=== PATIENT | female | born 2000 | race Two or more races ===

== ENCOUNTER → 2021-02-26 12:53 | Outpatient (BNVA) | payer MEDICAID, SELFPAY | PROVIDERS: PCP Pediatrics Adolescent Medicine; Visit Provider Nurse Practitioner Family | DX: G40.909 Epilepsy, unspecified, not intractable, without status epilepticus (principal); R25.1 Tremor, unspecified; R47.9 Unspecified speech disturbances; F39 Unspecified mood [affective] disorder | CPT/HCPCS: 99212 ==

== ENCOUNTER → 2021-06-27 09:08 | Outpatient (BNVA) | payer MEDICAID, SELFPAY | PROVIDERS: PCP Pediatrics Adolescent Medicine; Visit Provider Nurse Practitioner Family | DX: G40.909 Epilepsy, unspecified, not intractable, without status epilepticus (principal); R25.1 Tremor, unspecified; R47.9 Unspecified speech disturbances | CPT/HCPCS: 99212 ==

== ENCOUNTER → 2021-12-05 10:08 | Outpatient (BNVA) | payer MEDICAID, SELFPAY | PROVIDERS: PCP Pediatrics Adolescent Medicine; Visit Provider Nurse Practitioner Family | DX: G40.909 Epilepsy, unspecified, not intractable, without status epilepticus (principal); G44.85 Primary stabbing headache; R25.1 Tremor, unspecified; F39 Unspecified mood [affective] disorder | CPT/HCPCS: 99212 ==

== ENCOUNTER → 2022-03-12 10:41 | Outpatient (BNVA) | payer MEDICAID, SELFPAY | PROVIDERS: PCP Pediatrics Adolescent Medicine; Visit Provider Nurse Practitioner Family | DX: G40.909 Epilepsy, unspecified, not intractable, without status epilepticus (principal); R47.9 Unspecified speech disturbances; G44.85 Primary stabbing headache; Z79.899 Other long term (current) drug therapy | CPT/HCPCS: 99212 ==

== ENCOUNTER → 2022-06-09 10:57 | Outpatient (BNVA) | payer MEDICAID, SELFPAY | PROVIDERS: PCP Pediatrics Adolescent Medicine; Visit Provider Nurse Practitioner Family ==

== ENCOUNTER 2022-10-08 11:01 | Outpatient (AMB) | payer MEDICAID, SELFPAY ==
[2022-10-08 11:28] VITALS: BP 120/78; BMI 46.6
--- NOTE | 2022-10-08 11:28 | MHC.OFFVIS ---
Intake Vital Signs 10/08/22 11:28 Height 5 ft 2 in Weight 255 lb BMI 46.6 BP 120/78 Blood Pressure Location Rt brachial Position Sitting Intake Visit Reasons: follow up - Confirmed Intake Note: Patient presents for follow up Patient states evrything is good,no concerns today. Allergies phenytoin Allergy (Intermediate, Verified 10/08/22 11:30) unknown Medication List - Last Reconciled 10/08/22 by KOLBY Chavis clonazepam 2 mg PO DAILY PRN 30 days divalproex ER 1,500 mg (3 x 500 mg) PO DAILY 30 days gabapentin 100 - 300 mg (1 - 3 x 100 mg) PO BEDTIME 30 days indomethacin 25 mg PO TID 30 days levetiracetam 2,000 mg (2 x 1,000 mg) PO BID 30 days magnesium oxide 400 mg PO BEDTIME 30 days oxcarbazepine 600 mg (2 x 300 mg) PO BID 30 days pyridoxine (vitamin B6) 100 mg (2 x 50 mg) PO BID 30 days HPI HPI Comments History of Present Illness Details 22-yr-old female presents for f/u visit. Pt endorses a recent crisis admission. Pt states that she still does not want to leave her home. States everything looks weird to her. She is not sure what is real or not, such as this conversation. She states she may or may not having hearing things. Thus, she went to a bar, and started saying things I shouldn't have said , and crisis was called. She states that in crisis, they only offered her medications which she refused and thus she was discharged. She has retunred to living with her mom. She is not regularly seeing her therapist since they want her to do in-person visits and this is difficult for her, as she still does not want to leave the house. She could see a different therapist but is hesitant to re-establish care w/ a new person. She still does not want to take meds. States she is not crazy , depressed, or sad. States if she can just figure out what is wrong w/ her, then she can help herself. She denies any interval seizure activity. She states she is compliant w/ her keppra, trileptal, and depakote. She was tried on Gabapentin for headcahes, but stopped this. She states Indomethacin works better- but needs a refill PFSH Family History Father Heart disease Mother Cancer Social History Alcohol intake: current Alcohol intake frequency: a few times a month Alcohol type: beer Patient Tobacco Use Status: Never used Tobacco Review of Systems Const All systems reviewed & are unremarkable except as noted in HPI and below Physical Exam Vital Signs: Last Vital Signs BP 120/78 10/08/22 11:28 BMI result Body Mass Index 46.6 Const General: cooperative and no acute distress Orientation/consciousness: patient oriented x3 HEENT Head: Yes normocephalic Resp Effort & Inspection: normal respiratory effort and able to speak in complete sentences Neuro Other: Mild stutter Mild UE tremor Gait steady today General: patient oriented x3 and CN's II-XI intact bilaterally Cognition (Neuro): normal cognition Motor exam (neuro): 5/5 motor strength present throughout Psych Appearance: grossly normal Mental Status: mental status grossly normal Attitude: cooperative Assessment & Plan Assessment & Plan (1) 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 Onset at age 14. Code(s): G40.909 - Epilepsy, unspecified, not intractable, without status epilepticus (2) Mood disorder: Comment: anxiety and depressive features. 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 Improved since onset. Code(s): R47.9 - Unspecified speech disturbances (4) Tremor: Code(s): R25.1 - Tremor, unspecified Plan For mood disorder- Pt agrees to see psychiatry to help w/ diagnosis, as this can help us better to help her manage her s/s. Pt previously seen at [facility]. Pt advised to call [facility], 911 if she develops any thoughts of SI/self-harm. For seizure: Check CBC, CMP, Depakote, TSH, b12/folate, ESR. Will check EEG. Continue Depakote ER 500mg qd. Continue Keppra [id number] bid. Continue Trileptal 600mg bid. Continue Vitamin B6 100mg bid. Continue Clonazepam ODT 2mg prn breakthrough seizure. 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 ? For sleep: Hold HST for now. ? For stabbing headaches: Continue Magnesium 400mg qhs. Continue Indomethacin 25mg po TID prn. Future considerations Propranolol 60mg Er or 10mg IR bid prn, consider PT. ? f/u in 2-3 months or sooner prn. Orders: Orders Vitamin B12 and Folate Today F09 - Unspecified mental disorder due to known physiological condition, F39 - Unspecified mood [affective] disorder, G40.909 - Epilepsy, unspecified, not intractable, without status epilepticus, R25.1 - Tremor, unspecified, R47.9 - Unspecified speech disturbances Comprehensive Met. Panel Today F09 - Unspecified mental disorder due to known physiological condition, F39 - Unspecified mood [affective] disorder, G40.909 - Epilepsy, unspecified, not intractable, without status epilepticus, R25.1 - Tremor, unspecified, R47.9 - Unspecified speech disturbances TSH reflex Free T4 Today F09 - Unspecified mental disorder due to known physiological condition, F39 - Unspecified mood [affective] disorder, G40.909 - Epilepsy, unspecified, not intractable, without status epilepticus, R25.1 - Tremor, unspecified, R47.9 - Unspecified speech disturbances Complete Blood Count Auto Diff Today F09 - Unspecified mental disorder due to known physiological condition, F39 - Unspecified mood [affective] disorder, G40.909 - Epilepsy, unspecified, not intractable, without status epilepticus, R25.1 - Tremor, unspecified, R47.9 - Unspecified speech disturbances Erythrocyte Sedimentation Rate Today F09 - Unspecified mental disorder due to known physiological condition, F39 - Unspecified mood [affective] disorder, G40.909 - Epilepsy, unspecified, not intractable, without status epilepticus, R25.1 - Tremor, unspecified, R47.9 - Unspecified speech disturbances Valproate Today F09 - Unspecified mental disorder due to known physiological condition, F39 - Unspecified mood [affective] disorder, G40.909 - Epilepsy, unspecified, not intractable, without status epilepticus, R25.1 - Tremor, unspecified, R47.9 - Unspecified speech disturbances EEG electroencephalogram Today F39 - Unspecified mood [affective] disorder, G40.909 - Epilepsy, unspecified, not intractable, without status epilepticus Referrals Psychiatry Referral F39 - Unspecified mood [affective] disorder, G40.909 - Epilepsy, unspecified, not intractable, without status epilepticus Medications: Refilled indomethacin administer with food or milk 25 mg PO TID 30 days 90 caps 1RF Discontinued gabapentin Discontinued Reason: Doctor's Order 100 - 300 mg (1 - 3 x 100 mg) PO BEDTIME 30 days 90 caps 1RF Coding Level of Care Code Est Pt Level 4 (00082) Diagnoses Epilepsy G40.909 Mood disorder F39 Speech disorder R47.9 Tremor R25.1
== END 2022-10-08 12:31 | disposition home or self-care (01) ==
PROVIDERS: Visit Provider Nurse Practitioner Family
DX: G40.909 Epilepsy, unspecified, not intractable, without status epilepticus (principal); F39 Unspecified mood [affective] disorder; R47.9 Unspecified speech disturbances; R25.1 Tremor, unspecified
CPT/HCPCS: 99214

== ENCOUNTER → 2022-10-08 11:01 | Outpatient (BNVA) | payer MEDICAID, SELFPAY | PROVIDERS: Visit Provider Nurse Practitioner Family | DX: G40.909 Epilepsy, unspecified, not intractable, without status epilepticus (principal); F39 Unspecified mood [affective] disorder; R47.9 Unspecified speech disturbances; R25.1 Tremor, unspecified; Z79.899 Other long term (current) drug therapy | CPT/HCPCS: 99212 ==

== ENCOUNTER 2022-10-30 07:42 | Outpatient (REF) | payer MEDICAID, SELFPAY ==
--- NOTE | 2022-10-30 07:46 | EEG_ITS ---
INDICATION: This is a 16-channel EEG with an EKG lead. The patient is reported awake during the tracing. Background EEG rhythm is low amplitude fast with no obvious asymmetry or paroxysmal tendency. Photic stimulation does not produce any significant abnormality. Hyperventilation is unremarkable. No sharp wave spikes or paroxysmal tendency noted. Cardiac lead does not reveal any significant abnormality. Some lead and muscle artifacts are noted. IMPRESSION: Unremarkable EEG. MD ELIAS Guerrero/JOE / [id number]
== END 2022-10-30 07:43 | disposition home or self-care (01) ==
LOC: HO.NEURO 07:42
PROVIDERS: PCP Pediatrics Adolescent Medicine; Visit Provider Nurse Practitioner Family
DX: G40.909 Epilepsy, unspecified, not intractable, without status epilepticus (principal); F39 Unspecified mood [affective] disorder
CPT/HCPCS: 95816

== ENCOUNTER 2023-01-08 11:06 | Outpatient (AMB) | payer MEDICAID, SELFPAY ==
--- NOTE | 2023-01-08 11:27 | A.OFFVIS_ITS ---
Intake Vital Signs 01/08/23 11:29 Weight 258 lb 2 oz BP 140/68 H Blood Pressure Location Lt brachial Position Sitting Pulse 119 H Pulse Source Pulse Oximeter Pulse Oximetry (%) 98 Oxygen Delivery Method Room Air Intake Visit Reasons: follow up / LVM Allergies phenytoin Allergy (Intermediate, Verified 01/08/23 11:32) unknown Medication List - Last Reconciled 01/08/23 by Isabel Khoury, KOLBY clonazepam 2 mg PO DAILY PRN 30 days divalproex ER 1,500 mg (3 x 500 mg) PO DAILY 30 days indomethacin 25 mg PO TID PRN 30 days levetiracetam 2,000 mg (2 x 1,000 mg) PO BID 30 days magnesium oxide 400 mg PO BEDTIME 30 days oxcarbazepine 600 mg (2 x 300 mg) PO BID 30 days pyridoxine (vitamin B6) 100 mg (2 x 50 mg) PO BID 30 days HPI HPI Comments History of Present Illness Details 22-yr-old female presents for f/u visit. Pt denies any significant interval medical changes. She has been having a right parietal burning pain- the size of a tennis ball. The pain was intense- made it difficult for her to fall asleep. The attack lasted 4 days. She tried OTC headache medicine- did not help. She also notes increased weight gain, snoring, unrefreshing sleep, and excessive daytime sleepiness. She states she cannot see the psychiatrist as she does not currently have a PCP, as she has aged out of pediatrics. She is having difficulty finding a PCP. She does not drive. She lives in [place]. [facility] Family History Father Heart disease Mother Cancer Social History Alcohol intake: current Alcohol intake frequency: a few times a month Alcohol type: beer Patient Tobacco Use Status: Never used Tobacco Review of Systems Const All systems reviewed & are unremarkable except as noted in HPI and below Physical Exam Vital Signs: Last Vital Signs Pulse 119 H 01/08/23 11:29 BP 140/68 H 01/08/23 11:29 Pulse Ox 98 01/08/23 11:29 Oxygen Delivery Method Room Air 01/08/23 11:29 Const General: cooperative and no acute distress Orientation/consciousness: patient oriented x3 HEENT Head: Yes normocephalic Resp Effort & Inspection: normal respiratory effort and able to speak in complete sentences Neuro Other: Mild stutter General: patient oriented x3, gait normal and CN's II-XI intact bilaterally Cognition (Neuro): normal cognition Motor exam (neuro): 5/5 motor strength present throughout Psych Appearance: grossly normal Mental Status: mental status grossly normal Speech and movement: Normal speech and movement present Affect: normal affect Attitude: cooperative Thought process: Normal thought process present Thought content: Normal thought content present Insight: Good insight present (Psych) Judgement: Good judgement present (Psych) Assessment & Plan Assessment & Plan (1) 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 Onset at age 14. Code(s): G40.909 - Epilepsy, unspecified, not intractable, without status epilepticus (2) Obesity, morbid, BMI 40.0-49.9: Code(s): E66.01 - Morbid (severe) obesity due to excess calories (3) Tremor: Code(s): R25.1 - Tremor, unspecified (4) Sleep difficulties: Code(s): G47.9 - Sleep disorder, unspecified (5) Excessive daytime sleepiness: Comment: ESS- 15 Code(s): G47.19 - Other hypersomnia (6) Stabbing headache: Comment: indomethacin-responsive Code(s): G44.85 - Primary stabbing headache (7) Snoring: Code(s): R06.83 - Snoring (8) Mood disorder: Comment: anxiety and depressive features. Code(s): F39 - Unspecified mood [affective] disorder Plan For mood disorder- Will attempt to help pt establish care w/ PCP as pt cannot seee psychiatry w/o a PCP. However, will reach out to psychiatry to see if we they will see her- as we would like clarity on her mental health diagnosis.. Pt previously seen at [facility]. Pt advised to call [facility], 1 if she develops any thoughts of SI/self-harm. ? For seizure: Re-check labs EEG- normal Continue Depakote ER 500mg qd. Continue Keppra [id number] bid. Continue Trileptal 600mg bid. Continue Vitamin B6 100mg bid. Continue Clonazepam ODT 2mg prn breakthrough seizure. 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 ? For sleep: Pt advised to undergo in-lab PSG to assess for sleep apnea in setting of pt w/ BMI > 40.. ? For stabbing headaches: Continue Magnesium 400mg qhs. Continue Indomethacin 25mg po TID prn. Future considerations Propranolol 60mg Er or 10mg IR bid prn, consider PT. ? f/u in 4 months or sooner prn. Orders: Orders Complete Blood Count Auto Diff 01/08/23 E66. - Morbid (severe) obesity due to excess calories, G40.909 - Epilepsy, unspecified, not intractable, without status epilepticus, R25.1 - Tremor, unspecified Hemoglobin A1c 01/08/23 E66.01 - Morbid (severe) obesity due to excess calories, F09 - Unspecified mental disorder due to known physiological condition, R25.1 - Tremor, unspecified Lipid Panel with Reflex 01/08/23 E66.01 - Morbid (severe) obesity due to excess calories, G40.909 - Epilepsy, unspecified, not intractable, without status epilepticus, R25.1 - Tremor, unspecified Comprehensive Met. Panel 01/08/23 E66.01 - Morbid (severe) obesity due to excess calories, G40.909 - Epilepsy, unspecified, not intractable, without status epilepticus, R25.1 - Tremor, unspecified Valproate 01/08/23 E66.01 - Morbid (severe) obesity due to excess calories, G40.909 - Epilepsy, unspecified, not intractable, without status epilepticus, R25.1 - Tremor, unspecified RT PSG in-lab sleep study 01/08/23 E66.01 - Morbid (severe) obesity due to excess calories, G40.909 - Epilepsy, unspecified, not intractable, without status epilepticus, G47.19 - Other hypersomnia, G47.9 - Sleep disorder, unspecified Medications: Changed From indomethacin administer with food or milk 25 mg PO TID 30 days 90 caps 1RF To indomethacin administer with food or milk 25 mg PO TID 30 days PRN 90 caps 1RF headache Coding Level of Care Code Est Pt Level 4 (73713) Diagnoses Epilepsy G40.909 Obesity, morbid, BMI 40.0-49.9 E66.01 Tremor R25.1 Sleep difficulties G47.9 Excessive daytime sleepiness G47.19 Stabbing headache G44.85 Snoring R06.83 Mood disorder F39
[2023-01-08 11:29] VITALS: BP 140/68; PULSE 119; O2SAT 98
== END 2023-01-08 12:41 | disposition home or self-care (01) ==
PROVIDERS: PCP Pediatrics Adolescent Medicine; Visit Provider Nurse Practitioner Family
DX: G40.909 Epilepsy, unspecified, not intractable, without status epilepticus (principal); E66.01 Morbid (severe) obesity due to excess calories; R25.1 Tremor, unspecified; G47.9 Sleep disorder, unspecified; G47.19 Other hypersomnia; G44.85 Primary stabbing headache; R06.83 Snoring; F39 Unspecified mood [affective] disorder
CPT/HCPCS: 99214

== ENCOUNTER → 2023-01-08 11:06 | Outpatient (BNVA) | payer MEDICAID, SELFPAY | PROVIDERS: PCP Pediatrics Adolescent Medicine; Visit Provider Nurse Practitioner Family | DX: G40.909 Epilepsy, unspecified, not intractable, without status epilepticus (principal); R25.1 Tremor, unspecified; G47.9 Sleep disorder, unspecified; G47.19 Other hypersomnia; G44.85 Primary stabbing headache; R06.83 Snoring; E66.01 Morbid (severe) obesity due to excess calories; F39 Unspecified mood [affective] disorder | CPT/HCPCS: 99212 ==

== ENCOUNTER 2023-06-11 10:47 | Outpatient (AMB) | payer OTHER, SELFPAY ==
--- NOTE | 2023-06-11 11:33 | A.OFFVIS_ITS ---
Vital Signs 06/11/23 11:38 Height 5 ft 2 in Weight 265 lb BMI 48.5 BP 130/80 Blood Pressure Location Lt brachial Position Sitting Pulse 88 Pulse Source Pulse Oximeter Pulse Oximetry (%) 100 Oxygen Delivery Method Room Air Intake Visit Reasons: 5M follow up-CONF Intake Note: Patient presents for 5 month's f/u. Both hands are shaking more. Allergies phenytoin Allergy (Intermediate, Verified 06/11/23 11:38) unknown Medication List - Last Reconciled 06/11/23 by KOLBY Chavis clonazepam 2 mg PO DAILY PRN 30 days divalproex ER 1,500 mg (3 x 500 mg) PO DAILY 30 days indomethacin 25 mg PO TID PRN 30 days levetiracetam 2,000 mg (2 x 1,000 mg) PO BID 30 days magnesium oxide 400 mg PO BEDTIME 30 days oxcarbazepine 600 mg (2 x 300 mg) PO BID 30 days pyridoxine (vitamin B6) 100 mg (2 x 50 mg) PO BID 30 days rosuvastatin 5 mg PO DAILY 30 days HPI Comments Details: 23-yr-old female presents for f/u visit. Pt denies any significant interval medical changes. Interval labs were notable for hyperlipidemia. Pt was advised to start rosuvastin, which she has started. States tolerating well. Pt states her mood is stable. She feels more forgetful, can be easily distracted. She is trying to go outside more. She can still sometimes feel like things are not real. She is not working. She would like to be able to drive- her permit just . Denies seizure activity. She tries to be compliant w/ her AEDs, but sometimes runs out as she can have difficulty getting her medications. Notes [facility] won't deliver her meds, states they told her her meds need to be signed for. She sometimes has the stabbing headache, Indomethacin helps, but again sometimes runs out. 01/08/23 12:52 WBC 9.7 RBC 4.40 Hgb 13.8 Hct 43.3 MCV 98.4 Platelet Count 433 01/08/23 12:52 Sodium 141 Potassium 4.4 Chloride 103 Bicarbonate Level 27 Anion Gap 11 Glucose Level 77 Hemoglobin A1C (Monitoring) 4.9 BUN 10 Creatinine-Blood 0.6 Estimated GFR Creatinine 127 Calcium 10.1 Protein, Total 7.9 Albumin 4.5 AG Ratio 1.3 Alkaline Phosphatase 53 AST (SGOT) 47 ALT (SGPT) 61 Bilirubin, Total 0.3 Cholesterol 265 HDL Cholesterol 40 LDL Cholesterol 189 Non HDL Cholesterol 225 Triglyceride 181 Cholesterol/HDL Ratio (Calc) 6.6 Valproic Level 69.4 PFSH Family History Father Heart disease Mother Cancer Social History Alcohol intake: current Alcohol intake frequency: a few times a month Alcohol type: beer Patient Tobacco Use Status: Never used Tobacco Physical Exam Vital Signs: Last Vital Signs Pulse 88 06/11/23 11:38 BP 130/80 06/11/23 11:38 Pulse Ox 100 06/11/23 11:38 Oxygen Delivery Method Room Air 06/11/23 11:38 BMI result Body Mass Index 48.5 Const General: cooperative and no acute distress Orientation/consciousness: patient oriented x3 Resp Effort & Inspection: normal respiratory effort and able to speak in complete sentences Neuro Other: Mild stutter Mild BUE postural tremor Staedy gait today General: patient oriented x3 Cranial nerves: Yes CN's II-XII intact bilaterally Cognition (Neuro): normal cognition Psych Appearance: grossly normal Mental Status: mental status grossly normal Affect: normal affect Attitude: cooperative Assessment & Plan Assessment & Plan (1) 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 Onset at age 14. 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 Improved since onset. Code(s): R47.9 - Unspecified speech disturbances Category: Medical (4) Mood disorder: Comment: anxiety and depressive features. Code(s): F39 - Unspecified mood [affective] disorder Category: Medical (5) Stabbing headache: Comment: indomethacin-responsive Code(s): G44.85 - Primary stabbing headache Category: Medical (6) HLD (hyperlipidemia): Code(s): E78.5 - Hyperlipidemia, unspecified Category: Medical Plan For mood disorder- Pt has an appt to establish care w/ PCP, once established we can refer pt as pt cannot see psychiatry w/o a PCP. Will refer for psychiatric consult, as we would like clarity on her mental health diagnosis and medication guidance. Pt previously seen at [facility]. Pt advised to call crisis, 911 if she develops any thoughts of SI/self-harm. Will send all meds to a new pharmacy that can deliver medications to improve compliance. ? For seizure: Continue Depakote ER 500mg qd. Continue Keppra [id number] bid. Continue Trileptal 600mg bid. Continue Vitamin B6 100mg bid. Continue Clonazepam ODT 2mg prn breakthrough seizure. 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 Check CBC, CMP, depakote level. For tremor: Trial Propranolol 10mg bid. ? For sleep: Pt unable to have sleep study until she has established care w/a PCP- hold in- lab PSG to assess for sleep apnea in setting of pt w/ BMI > 40.. ? For stabbing headaches: Continue Magnesium 400mg qhs. Continue Indomethacin 25mg po TID prn. Future considerations Propranolol 60mg Er or 10mg IR bid prn, consider PT. For HLD: Continue rosuvastatin 5mg qhs. Pt had been referred to medical wt management- this service is on hold- they gave pt info on information for [facility]. Check lipid panel. ? f/u in 6 months or sooner prn. Medications: New propranolol 10 mg PO BID 60 tabs 3RF 30 days Changed From levetiracetam 2,000 mg (2 x 1,000 mg) PO BID 30 days 120 tabs 6RF To levetiracetam 2,000 mg (2 x 1,000 mg) PO BID 120 tabs 6RF 30 days From divalproex ER 1,500 mg (3 x 500 mg) PO DAILY 30 days 90 tabs 6RF To divalproex ER 1,500 mg (3 x 500 mg) PO DAILY 90 tabs 6RF 30 days Refilled magnesium oxide may hold for loose stools 400 mg PO BEDTIME 30 tabs 6RF 30 days rosuvastatin at bedtime 5 mg PO DAILY 30 tabs 6RF 30 days pyridoxine (vitamin B6) 100 mg (2 x 50 mg) PO BID 120 tabs 6RF 30 days oxcarbazepine 600 mg (2 x 300 mg) PO BID 120 tabs 6RF 30 days indomethacin administer with food or milk 25 mg PO TID PRN 90 caps 1RF headache 30 days Coding Level of Care Code Est Pt Level 4 (43583) Diagnoses Epilepsy G40.909 Tremor R25.1 Speech disorder R47.9 Mood disorder F39 Stabbing headache G44.85 HLD (hyperlipidemia) E78.5
[2023-06-11 11:38] VITALS: BP 130/80; PULSE 88; O2SAT 100; BMI 48.5
== END 2023-06-11 12:24 | disposition home or self-care (01) ==
PROVIDERS: PCP Nurse Practitioner Family; Visit Provider Nurse Practitioner Family
DX: G40.909 Epilepsy, unspecified, not intractable, without status epilepticus (principal); R25.1 Tremor, unspecified; R47.9 Unspecified speech disturbances; F39 Unspecified mood [affective] disorder; G44.85 Primary stabbing headache; E78.5 Hyperlipidemia, unspecified
CPT/HCPCS: 99214

== ENCOUNTER → 2023-06-11 10:47 | Outpatient (BNVA) | payer OTHER, SELFPAY | PROVIDERS: PCP Nurse Practitioner Family; Visit Provider Nurse Practitioner Family | DX: G40.909 Epilepsy, unspecified, not intractable, without status epilepticus (principal); R25.1 Tremor, unspecified; R47.9 Unspecified speech disturbances; F39 Unspecified mood [affective] disorder; G44.85 Primary stabbing headache; E78.5 Hyperlipidemia, unspecified; Z79.899 Other long term (current) drug therapy | CPT/HCPCS: 99212 ==

== ENCOUNTER 2023-07-23 15:30 | Outpatient (AMB) | payer OTHER, SELFPAY ==
--- NOTE | 2023-07-23 15:53 | A.OFFPSYCH_ITS ---
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 Allergies phenytoin Allergy (Intermediate, Verified 06/11/23 11:38) unknown Medication List - Last Reconciled 07/23/23 by Jennyfer Calhoun APRN clonazepam 2 mg PO DAILY PRN 30 days divalproex ER 1,500 mg (3 x 500 mg) PO DAILY 30 days fluoxetine (Prozac) 10 mg PO DAILY indomethacin 25 mg PO TID PRN 30 days levetiracetam 2,000 mg (2 x 1,000 mg) PO BID 30 days lorazepam (Ativan) 0.5 mg PO TID PRN magnesium oxide 400 mg PO BEDTIME 30 days multivitamin 1 tab PO DAILY oxcarbazepine 600 mg (2 x 300 mg) PO BID 30 days propranolol 10 mg PO BID 30 days pyridoxine (vitamin B6) 100 mg (2 x 50 mg) PO BID 30 days rosuvastatin 5 mg PO DAILY 30 days HPI- Psychiatric Chief Complaint: consultation HPI Narrative: Iris is a 23 yo partnered person who lives with her mother and 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 Pt was referred by neurologist for psychiatric evaluation and medication recommendations. Pt reports severe anxiety every day; panic attacks. pt is fearful of going outside the house. often feels that things are not real around her when out of the house. has intrusive thoughts about hurting herself or others but has never acted on them. has no plan and no intent to harm herself or others; reports the thoughts come out of no where when feeling very scared. pt reports great sadness about seizure disorder and how strong they used to be beore having a seizure at age 13. says everything changed once they had seizure at age 13. was in ICU for 2 days then in hospital in [place] for a month. Has fear all the time that they will have another seizure. Very scared of medication for psych in past but feels needs medication now. pt feels very overwhelmed by level of fear, anxiety, panic, avoidance of going out of house. PHQ9 is 11 and GAD7 is an 11. Pt is tearful when talking about symptoms and experience of epilepsy Past Psychiatric History: IPLOC age 10 (pt not sure why) again at age 15 due to depression, and again summer after drinking excessively was in [facility] near [place]. Has out patient therapy at [facility] in [place] with Belinda Lovelace. saw psychiatrist there but didnt feel heard. Outpt as child at [facility] (age 5-12 ) and [facility] (age 12-17) Subjective Subjective Subjective Medication Compliance: Yes Side effects from medications: No Review of Systems Medical Review of Systems: unchanged Mental Status Exam Mental Status Exam Patient Appearance: Well Grooomed and Appropriate Patient Orientation: Person, Place, Time and Situation Level of Consciousness: Awake, Appropriate and Alert Patient Behavior: Appropriate, Cooperative, Timid, Anxious, Fearful, Good Eye Contact and Crying Mood Description: Fearful and Anxious Affect Description: Fearful and Anxious Patient Cognition Impaired: No Ability to Follow Directions: Good Speech Pattern: Difficulty Finding Words, Soft-Spoken, Stuttering and Delayed Memory Description: Intact Hallucinations: None Delusions: Paranoid Ideation (exteme fear of bad things hapeening if out of house including having a seizure or being hurt ) Thought Process: Intact Thought Content: positive for Intact Judgement: Good Assessment and Plan Assessment & Plan (1) Post traumatic stress disorder (PTSD): Status: Acute Code(s): F43.10 - Post-traumatic stress disorder, unspecified (2) Panic disorder with agoraphobia: Status: Acute Code(s): F40.01 - Agoraphobia with panic disorder Plan 23 yo woman with PTSD and agoraphobia with panic attacks in context of epilepsy in need of medication support; discussed not using alcohol at all while on meds; discussed alcohol and seizure connection. pt fearful of meds being too sedating so will start with low doses and reassess together Medications: New multivitamin 1 tab PO DAILY 30 tabs 0RF lorazepam (Ativan) 0.5 mg PO TID PRN 60 tabs 0RF anxiety fluoxetine (Prozac) 10 mg PO DAILY 30 caps 0RF Counseling and coordination of Care Pt. Self Management counseling: Mod caffeine/ETOH intake, Sleep hygiene and General coping skills Medication management counseling: Effectiveness, Side effects, Dosing range, Duration, Drug interaction and Adherence Diagnosis and Prognosis Counseling: Accuracy of diagnosis, Prognosis over time, Impact of diagnosis on life functions, Impact of family relationship, Problematic behaviors secondary to diagnosis and Adequacy of current interventions Details: I spent 75 minutes reviewing the record, seeing the patient and documenting in the medical record. Counseling provided to the patient/caregiver as outlined below. Addressed patient/caregiver concerns regarding current medication regime including effective adherence. Addressed patient/caregiver concerns regarding diagnosis and prognosis including accuracy of diagnosis, prognosis over time, impact of diagnosis. Addressed patient/caregiver concerns regarding impact of recent stressors. 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 pt reports repeating 6th grade 3x 7th grade 2x 8th grade [employer], 9th grade at age 18 left school. Substance History: intermittent heavy alcohol use; hospitalized 2022 after episode of heavy alcohol use. now drinks 4 beer once a week Trauma History: seizure disorder has caused trauma; first seizure age 13 in ICU and then hospital in [place] 1 month. now fears seizure every day Coding Level of Care Code Psych Diag Eval w/Med (07467) Diagnoses Post traumatic stress disorder (PTSD) F43.10 Panic disorder with agoraphobia F40.01
== END 2023-07-23 16:59 | disposition home or self-care (01) ==
LOC: HO.HOP 15:30
PROVIDERS: PCP Nurse Practitioner Family; Visit Provider Clinical Nurse Specialist Psychiatric/Mental Health
DX: F43.10 Post-traumatic stress disorder, unspecified (principal); F40.01 Agoraphobia with panic disorder
CPT/HCPCS: 90792

== ENCOUNTER → 2023-07-23 15:30 | Outpatient (BNVA) | payer OTHER, SELFPAY | PROVIDERS: PCP Nurse Practitioner Family; Visit Provider Clinical Nurse Specialist Psychiatric/Mental Health | DX: F43.10 Post-traumatic stress disorder, unspecified (principal); F40.01 Agoraphobia with panic disorder | CPT/HCPCS: 90792 ==

== ENCOUNTER 2023-08-13 15:11 | Outpatient (AMB) | payer OTHER, SELFPAY ==
--- NOTE | 2023-08-13 15:53 | A.OFFPSYCH_ITS ---
Intake Intake Visit Reasons: depression Emergency Medical Services Coordinator Required: No Allergies phenytoin Allergy (Intermediate, Verified 06/11/23 11:38) unknown Medication List - Last Reconciled 08/26/23 by Jennyfer Calhoun APRN clonazepam 2 mg PO DAILY PRN 30 days divalproex ER 1,500 mg (3 x 500 mg) PO DAILY 30 days fluoxetine (Prozac) 20 mg PO DAILY indomethacin 25 mg PO TID PRN 30 days levetiracetam 2,000 mg (2 x 1,000 mg) PO BID 30 days lorazepam (Ativan) 0.5 mg PO TID PRN magnesium oxide 400 mg PO BEDTIME 30 days multivitamin 1 tab PO DAILY oxcarbazepine 600 mg (2 x 300 mg) PO BID 30 days propranolol 10 mg PO BID 30 days pyridoxine (vitamin B6) 100 mg (2 x 50 mg) PO BID 30 days rosuvastatin 5 mg PO DAILY 30 days HPI- Psychiatric Chief Complaint: depression HPI Narrative: Pt reports still anxious at times; no adverse effect from prozac. She says she is not depressed and PHQ9 is 9. She still worries and has trouble relaxing. she feels nervous and on edge. she can be easily irritable and fears something terrible could happen. she denies any severe panic attacks since last visit; no SI or HI Past Psychiatric History: IPLOC age 10 (pt not sure why) again at age 15 due to depression, and again summer after drinking excessively was in [facility] near [place]. Has out patient therapy at [facility] in [place] with Belinda Lovelace. saw psychiatrist there but didnt feel heard. Outpt as child at [facility] (age 5-12 ) and [facility] (age 12-17) Subjective Subjective Subjective Medication Compliance: Yes Side effects from medications: No Review of Systems Medical Review of Systems: unchanged Mental Status Exam Mental Status Exam Patient Appearance: Well Grooomed and Appropriate Patient Orientation: Person, Place, Time and Situation Level of Consciousness: Awake, Appropriate and Alert Patient Behavior: Appropriate Mood Description: Anxious Affect Description: Anxious Patient Cognition Impaired: No Ability to Follow Directions: Good Speech Pattern: Clear, Soft-Spoken, Stuttering and Delayed Hallucinations: None Delusions: Not Present Thought Process: Intact Thought Content: positive for Intact and positive for Goal Oriented Judgement: Good Assessment and Plan Assessment & Plan (1) Panic disorder with agoraphobia: Status: Acute Code(s): F40.01 - Agoraphobia with panic disorder (2) Post traumatic stress disorder (PTSD): Status: Acute Code(s): F43.10 - Post-traumatic stress disorder, unspecified Plan increase prozac to 20 mg daily Medications: New fluoxetine (Prozac) 20 mg PO DAILY 30 caps 1RF Discontinued fluoxetine Discontinued Reason: Doctor's Order 10 mg PO DAILY 30 caps 0RF Counseling and coordination of Care Pt. Self Management counseling: Exercise, Med illness tx adherence, Mod caffeine/ETOH intake and General coping skills Medication management counseling: Effectiveness, Side effects, Dosing range, Duration, Drug interaction and Adherence Diagnosis and Prognosis Counseling: Accuracy of diagnosis, Prognosis over time, Impact of diagnosis on life functions, Problematic behaviors secondary to diagnosis and Adequacy of current interventions Details: I spent 40 minutes reviewing the record, seeing the patient and documenting in the medical record. Counseling provided to the patient/caregiver as outlined below. Addressed patient/caregiver concerns regarding current medication regime including effective adherence. Addressed patient/caregiver concerns regarding diagnosis and prognosis including accuracy of diagnosis, prognosis over time, impact of diagnosis. Addressed patient/caregiver concerns regarding impact of recent stressors. 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 pt reports repeating 6th grade 3x 7th grade 2x 8th grade [employer], 9th grade at age 18 left school. Substance History: intermittent heavy alcohol use; hospitalized 2022 after episode of heavy alcohol use. now drinks 4 beer once a week Trauma History: seizure disorder has caused trauma; first seizure age 13 in ICU and then hospital in [place] 1 month. now fears seizure every day Coding Level of Care Code Est Pt Level 4 (03759) Diagnoses Panic disorder with agoraphobia F40.01 Post traumatic stress disorder (PTSD) F43.10
== END 2023-08-13 16:20 | disposition home or self-care (01) ==
LOC: HO.HOP 15:11
PROVIDERS: PCP Nurse Practitioner Family; Visit Provider Clinical Nurse Specialist Psychiatric/Mental Health
DX: F40.01 Agoraphobia with panic disorder (principal); F43.10 Post-traumatic stress disorder, unspecified
CPT/HCPCS: 99214

== ENCOUNTER → 2023-08-13 15:11 | Outpatient (BNVA) | payer OTHER, SELFPAY | PROVIDERS: PCP Nurse Practitioner Family; Visit Provider Clinical Nurse Specialist Psychiatric/Mental Health | DX: F40.01 Agoraphobia with panic disorder (principal); F43.10 Post-traumatic stress disorder, unspecified | CPT/HCPCS: 99212 ==

== ENCOUNTER 2023-10-21 17:27 | Outpatient (AMB) | payer OTHER, SELFPAY ==
--- NOTE | 2023-10-21 14:37 | A.OFFPSYCH_ITS ---
Intake Intake Visit Reasons: depression Thermodynamicist Required: No Allergies phenytoin Allergy (Intermediate, Verified 06/11/23 11:38) unknown Medication List - Last Reconciled 10/21/23 by Jennyfer Calhoun APRN clonazepam 2 mg PO DAILY PRN 30 days divalproex ER 1,500 mg (3 x 500 mg) PO DAILY 30 days fluoxetine (Prozac) 20 mg PO DAILY indomethacin 25 mg PO TID PRN 30 days levetiracetam 2,000 mg (2 x 1,000 mg) PO BID 30 days lorazepam (Ativan) 0.5 mg PO TID PRN magnesium oxide 400 mg PO BEDTIME 30 days multivitamin with folic acid 400 mcg (Daily-Rosalba (with folic acid)) 1 tab PO DAILY 30 days oxcarbazepine 600 mg (2 x 300 mg) PO BID 30 days propranolol 10 mg PO BID 30 days pyridoxine (vitamin B6) 100 mg (2 x 50 mg) PO BID 30 days rosuvastatin 5 mg PO DAILY 30 days HPI- Psychiatric Chief Complaint: depression HPI Narrative: pt unable to to come to office due to fear and transportation issues; she reports hearing voices command at time; hears a voice say just throw yourself no SI or Hi no plan or intent; pt reports a feeling of derealization which causes her much distress; she feels crazy sometimes. She isnot able to work right now; she is not leaving her house much; she lives with her mother who she feels doesn't understand her symptoms; she has a supportive GF. She denies etoh use . Past Psychiatric History: IPLOC age 10 (pt not sure why) again at age 15 due to depression, and again summer after drinking excessively was in [facility] near [place]. Has out patient therapy at [facility] in [place] with Belinda Lovelace. saw psychiatrist there but didnt feel heard. Outpt as child at [facility] (age 5-12 ) and [facility] (age 12-17) Subjective Subjective Subjective Medication Compliance: Yes Side effects from medications: No Review of Systems Medical Review of Systems: unchanged Mental Status Exam Mental Status Exam Mood Description: Anxious Ability to Follow Directions: Good Speech Pattern: Stuttering Hallucinations: Auditory Thought Content: positive for Goal Oriented Judgement: Fair Telehealth Telehealth Telehealth Platform: Telephone Location of provider rendering services: practice address Location of patient: address on file Patient Identification confirmed using: Name, : Yes Telehealth method: voice only Patient verbally consented to treatment: Yes Patient verbally consented to billing insurance company: Yes Patient informed of any privacy concerns related to visit: Yes Minutes spent on Phone/Video with Pt.: 25 Assessment and Plan Assessment & Plan (1) Panic disorder with agoraphobia: Status: Acute Code(s): F40.01 - Agoraphobia with panic disorder (2) Post traumatic stress disorder (PTSD): Status: Acute Code(s): F43.10 - Post-traumatic stress disorder, unspecified (3) Verbal auditory hallucinations: Status: Acute Code(s): R44.0 - Auditory hallucinations Plan stop prozac and ativan as pt says no positive benefit discussed case with Dr Lamar start haldol 1 mg at bedtime may use risperdal as alternative as haldol and risperdal have least effect on seizure threshold follow up in one week Medications: New haloperidol 1 mg PO BEDTIME 30 tabs 1RF Discontinued lorazepam (Ativan) Discontinued Reason: Doctor's Order 0.5 mg PO TID PRN 60 tabs 0RF anxiety fluoxetine (Prozac) Discontinued Reason: Doctor's Order 20 mg PO DAILY 30 caps 1RF Counseling and coordination of Care Pt. Self Management counseling: Med illness tx adherence, Mod caffeine/ETOH intake, Nutrition education and improvement, Sleep hygiene and General coping skills Medication management counseling: Effectiveness, Side effects, Dosing range, Duration, Drug interaction and Adherence Diagnosis and Prognosis Counseling: Accuracy of diagnosis, Prognosis over time, Impact of diagnosis on life functions, Impact of family relationship, Problematic behaviors secondary to diagnosis and Adequacy of current interventions Details: I spent 40 minutes reviewing the record, seeing the patient and documenting in the medical record. Counseling provided to the patient/caregiver as outlined below. Addressed patient/caregiver concerns regarding current medication regime including effective adherence. Addressed patient/caregiver concerns regarding diagnosis and prognosis including accuracy of diagnosis, prognosis over time, impact of diagnosis. Addressed patient/caregiver concerns regarding impact of recent stressors. 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 pt reports repeating 6th grade 3x 7th grade 2x 8th grade [employer] school[employer], 9th grade at age 18 left school. Substance History: intermittent heavy alcohol use; hospitalized 2022 after episode of heavy alcohol use. now drinks 4 beer once a week Trauma History: seizure disorder has caused trauma; first seizure age 13 in ICU and then hospital in [place] 1 month. now fears seizure every day Coding Level of Care Code Tele Est Pt Level 4 (98407) Diagnoses Panic disorder with agoraphobia F40.01 Post traumatic stress disorder (PTSD) F43.10 Verbal auditory hallucinations R44.0
== END 2023-10-21 17:28 | disposition home or self-care (01) ==
LOC: HO.HOP 17:27
PROVIDERS: PCP Nurse Practitioner Family; Visit Provider Clinical Nurse Specialist Psychiatric/Mental Health
DX: F40.01 Agoraphobia with panic disorder (principal); F43.10 Post-traumatic stress disorder, unspecified; R44.0 Auditory hallucinations
CPT/HCPCS: 99214

== ENCOUNTER → 2023-10-21 17:27 | Outpatient (BNVA) | payer OTHER, SELFPAY | PROVIDERS: PCP Nurse Practitioner Family; Visit Provider Clinical Nurse Specialist Psychiatric/Mental Health ==

== ENCOUNTER 2023-10-29 16:35 | Outpatient (AMB) | payer OTHER, SELFPAY ==
--- NOTE | 2023-10-29 14:20 | MHC.OFFVISPS ---
Intake Intake Visit Reasons: depression Allergies phenytoin Allergy (Intermediate, Verified 06/11/23 11:38) unknown Medication List - Last Reconciled 10/29/23 by Jennyfer Calhoun APRN clonazepam 2 mg PO DAILY PRN 30 days divalproex ER 1,500 mg (3 x 500 mg) PO DAILY 30 days haloperidol 1 mg PO BEDTIME indomethacin 25 mg PO TID PRN 30 days levetiracetam 2,000 mg (2 x 1,000 mg) PO BID 30 days lorazepam (Ativan) 1 mg PO BID PRN 15 days magnesium oxide 400 mg PO BEDTIME 30 days multivitamin with folic acid 400 mcg (Daily-Rosalba (with folic acid)) 1 tab PO DAILY 30 days oxcarbazepine 600 mg (2 x 300 mg) PO BID 30 days propranolol 10 mg PO BID 30 days pyridoxine (vitamin B6) 100 mg (2 x 50 mg) PO BID 30 days rosuvastatin 5 mg PO DAILY 30 days HPI- Psychiatric Chief Complaint: depression HPI Narrative: pt reports haldol has helped reduce her symptoms at night ; she is much less anxious at night; much less disturbed by voices and worried thoughts. she reports some slight sleepiness with it but feels it is tolerable; she was able to go out of the house with her partner. no SI no Hi. Past Psychiatric History: IPLOC age 10 (pt not sure why) again at age 15 due to depression, and again summer after drinking excessively was in [facility] near [place]. Has out patient therapy at [facility] in [place] with Belinda Lovelace. saw psychiatrist there but didnt feel heard. Outpt as child at [facility] (age 5-12 ) and [facility] (age 12-17) Subjective Subjective Subjective Medication Compliance: Yes Side effects from medications: No Review of Systems Medical Review of Systems: unchanged Mental Status Exam Mental Status Exam Patient Orientation: Person, Place, Time and Situation Level of Consciousness: Awake, Appropriate and Alert Patient Behavior: Appropriate Mood Description: Happy Patient Cognition Impaired: No Ability to Follow Directions: Good Speech Pattern: Clear Memory Description: Intact Hallucinations: None Delusions: Not Present Thought Process: Intact Thought Content: positive for Intact and positive for Goal Oriented Judgement: Fair Telehealth Telehealth Telehealth Platform: Telephone Location of provider rendering services: practice address Location of patient: other (a remote location [facility] ) Patient Identification confirmed using: Name, : Yes Telehealth method: voice only Patient verbally consented to treatment: Yes Patient verbally consented to billing insurance company: Yes Patient informed of any privacy concerns related to visit: Yes Minutes spent on Phone/Video with Pt.: 15 Assessment and Plan Assessment & Plan (1) Verbal auditory hallucinations: Status: Acute Code(s): R44.0 - Auditory hallucinations (2) Panic disorder with agoraphobia: Status: Acute Code(s): F40.01 - Agoraphobia with panic disorder (3) Post traumatic stress disorder (PTSD): Status: Acute Code(s): F43.10 - Post-traumatic stress disorder, unspecified Plan increase haldol to 1mg BID follow up in 3-4 weeks pt will call for appt as she was not in a place where she could write down appt time Medications: Changed From haloperidol 1 mg PO BEDTIME 30 tabs 1RF To haloperidol 1 mg PO BID 60 tabs 1RF Counseling and coordination of Care Pt. Self Management counseling: Med illness tx adherence, Mod caffeine/ETOH intake, Sleep hygiene, Behavior activation and General coping skills Medication management counseling: Effectiveness, Side effects, Dosing range, Duration, Drug interaction and Adherence Diagnosis and Prognosis Counseling: Accuracy of diagnosis, Prognosis over time, Impact of diagnosis on life functions and Adequacy of current interventions Details: I spent [] minutes reviewing the record, seeing the patient and documenting in the medical record. Counseling provided to the patient/caregiver as outlined below. Addressed patient/caregiver concerns regarding current medication regime including effective adherence. Addressed patient/caregiver concerns regarding diagnosis and prognosis including accuracy of diagnosis, prognosis over time, impact of diagnosis. Addressed patient/caregiver concerns regarding impact of recent stressors. 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 pt reports repeating 6th grade 3x 7th grade 2x 8th grade [employer] schooled, 9th grade at age 18 left school. Substance History: intermittent heavy alcohol use; hospitalized 2022 after episode of heavy alcohol use. now drinks 4 beer once a week Trauma History: seizure disorder has caused trauma; first seizure age 13 in ICU and then hospital in [place] 1 month. now fears seizure every day Coding Level of Care Code Tele Est Pt Level 3 (96128) Diagnoses Verbal auditory hallucinations R44.0 Panic disorder with agoraphobia F40.01 Post traumatic stress disorder (PTSD) F43.10
== END 2023-10-29 16:56 | disposition home or self-care (01) ==
LOC: HO.HOP 16:35
PROVIDERS: PCP Nurse Practitioner Family; Visit Provider Clinical Nurse Specialist Psychiatric/Mental Health
DX: F40.01 Agoraphobia with panic disorder (principal); R44.0 Auditory hallucinations; F43.10 Post-traumatic stress disorder, unspecified
CPT/HCPCS: 99213

== ENCOUNTER → 2023-10-29 16:35 | Outpatient (BNVA) | payer OTHER, SELFPAY | PROVIDERS: PCP Nurse Practitioner Family; Visit Provider Clinical Nurse Specialist Psychiatric/Mental Health | DX: R44.0 Auditory hallucinations (principal); F40.01 Agoraphobia with panic disorder; F43.10 Post-traumatic stress disorder, unspecified ==

== ENCOUNTER 2023-11-30 11:36 | Outpatient (AMB) | payer OTHER, SELFPAY ==
--- NOTE | 2023-11-30 11:02 | MHC.OFFVISPS ---
Intake Intake Visit Reasons: follow up Plush Weaver Required: No Allergies phenytoin Allergy (Intermediate, Verified 06/11/23 11:38) unknown Medication List - Last Reconciled 11/30/23 by Jennyfer Calhoun APRN clonazepam 2 mg PO DAILY PRN 30 days divalproex ER 1,500 mg (3 x 500 mg) PO DAILY 30 days haloperidol 1 mg PO BID indomethacin 25 mg PO TID PRN 30 days levetiracetam 2,000 mg (2 x 1,000 mg) PO BID 30 days lorazepam (Ativan) 1 mg PO BID PRN 15 days magnesium oxide 400 mg PO BEDTIME 30 days multivitamin with folic acid 400 mcg (Daily-Rosalba (with folic acid)) 1 tab PO DAILY 30 days oxcarbazepine 600 mg (2 x 300 mg) PO BID 30 days propranolol 10 mg PO BID 30 days pyridoxine (vitamin B6) 100 mg (2 x 50 mg) PO BID 30 days rosuvastatin 5 mg PO DAILY 30 days HPI- Psychiatric Chief Complaint: follow up HPI Narrative: pt reports that the Haldol has helped with the voices. She does report some side effects she states that she is having tiny involuntary mouth movements. She is also falling asleep during the day despite doing fun things or being fully engaged for example being at her niece's birthday libertarian. She is not sleeping at night the past 2 weeks. She was awake 1 night until 08:00 she thinks it might be because she sleeping during the day. She reports no other changes. Past Psychiatric History: IPLOC age 10 (pt not sure why) again at age 15 due to depression, and again summer after drinking excessively was in [facility] [place]. Has out patient therapy at [facility] in [place] with Belinda Lovelace. saw psychiatrist there but didnt feel heard. Outpt as child at [facility] (age 5-12 ) and [facility] (age 12-17) Subjective Subjective Subjective Medication Compliance: Yes Side effects from medications: Yes Review of Systems Medical Review of Systems: unchanged Mental Status Exam Mental Status Exam Patient Orientation: Person, Place, Time and Situation Level of Consciousness: Awake and Alert Patient Behavior: Appropriate Mood Description: Calm Affect Description: Calm Patient Cognition Impaired: No Ability to Follow Directions: Good Speech Pattern: Clear Memory Description: Intact Hallucinations: None Thought Process: Intact Thought Content: positive for Intact Judgement: Fair Telehealth Telehealth Telehealth Platform: Telephone Location of provider rendering services: practice address Patient Identification confirmed using: Name, : Yes Telehealth method: voice only Patient verbally consented to treatment: Yes Patient verbally consented to billing insurance company: Yes Patient informed of any privacy concerns related to visit: Yes Minutes spent on Phone/Video with Pt.: 25 Assessment and Plan Assessment & Plan (1) Verbal auditory hallucinations: Status: Acute Code(s): R44.0 - Auditory hallucinations (2) Panic disorder with agoraphobia: Status: Acute Code(s): F40.01 - Agoraphobia with panic disorder (3) Post traumatic stress disorder (PTSD): Status: Acute Code(s): F43.10 - Post-traumatic stress disorder, unspecified (4) Movement disorder: Status: Acute Code(s): G25.9 - Extrapyramidal and movement disorder, unspecified Plan decrease haldol to 1 mg at bedtime only consider changing to another agent if mouth movements continue Medications: New haloperidol 1 mg PO BEDTIME 30 tabs 1RF Counseling and coordination of Care Pt. Self Management counseling: Sleep hygiene, Behavior activation, General coping skills and Problem solving Medication management counseling: Effectiveness, Side effects, Dosing range, Duration, Drug interaction and Adherence Diagnosis and Prognosis Counseling: Accuracy of diagnosis, Prognosis over time, Impact of diagnosis on life functions, Impact of family relationship, Problematic behaviors secondary to diagnosis and Adequacy of current interventions Details: I spent 30 minutes reviewing the record, seeing the patient and documenting in the medical record. Counseling provided to the patient/caregiver as outlined below. Addressed patient/caregiver concerns regarding current medication regime including effective adherence. Addressed patient/caregiver concerns regarding diagnosis and prognosis including accuracy of diagnosis, prognosis over time, impact of diagnosis. Addressed patient/caregiver concerns regarding impact of recent stressors. 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 pt reports repeating 6th grade 3x 7th grade 2x 8th grade [employer] schooled, 9th grade at age 18 left school. Substance History: intermittent heavy alcohol use; hospitalized 2022 after episode of heavy alcohol use. now drinks 4 beer once a week Trauma History: seizure disorder has caused trauma; first seizure age 13 in ICU and then hospital in [place] 1 month. now fears seizure every day Coding Level of Care Code Tele Est Pt Level 4 (93639) Diagnoses Verbal auditory hallucinations R44.0 Panic disorder with agoraphobia F40.01 Post traumatic stress disorder (PTSD) F43.10 Movement disorder G25.9
== END 2023-11-30 11:37 | disposition home or self-care (01) ==
LOC: HO.HOP 11:36
PROVIDERS: PCP Nurse Practitioner Family; Visit Provider Clinical Nurse Specialist Psychiatric/Mental Health
DX: F40.01 Agoraphobia with panic disorder (principal); R44.0 Auditory hallucinations; F43.10 Post-traumatic stress disorder, unspecified; G25.9 Extrapyramidal and movement disorder, unspecified
CPT/HCPCS: 99214

== ENCOUNTER → 2023-11-30 11:36 | Outpatient (BNVA) | payer OTHER, SELFPAY | PROVIDERS: PCP Nurse Practitioner Family; Visit Provider Clinical Nurse Specialist Psychiatric/Mental Health | DX: R44.0 Auditory hallucinations (principal); F40.01 Agoraphobia with panic disorder; F43.10 Post-traumatic stress disorder, unspecified; G25.9 Extrapyramidal and movement disorder, unspecified ==

== ENCOUNTER 2023-12-21 12:06 | Outpatient (AMB) | payer OTHER, SELFPAY ==
--- NOTE | 2023-12-21 11:29 | MHC.OFFVISPS ---
Intake Intake Visit Reasons: f/u consultation Financial Reporting Manager Required: No Allergies phenytoin Allergy (Intermediate, Verified 06/11/23 11:38) unknown Medication List - Last Reconciled 12/21/23 by Jennyfer Calhoun APRN clonazepam 2 mg PO DAILY PRN 30 days divalproex ER 1,500 mg (3 x 500 mg) PO DAILY 30 days haloperidol 1 mg PO BEDTIME indomethacin 25 mg PO TID PRN 30 days levetiracetam 2,000 mg (2 x 1,000 mg) PO BID 30 days lorazepam (Ativan) 1 mg PO BID PRN 15 days magnesium oxide 400 mg PO BEDTIME 30 days multivitamin with folic acid 400 mcg (Daily-Rosalba (with folic acid)) 1 tab PO DAILY 30 days oxcarbazepine 600 mg (2 x 300 mg) PO BID 30 days propranolol 10 mg PO BID 30 days pyridoxine (vitamin B6) 100 mg (2 x 50 mg) PO BID 30 days rosuvastatin 5 mg PO DAILY 30 days HPI- Psychiatric Chief Complaint: f/u consultation HPI Narrative: pt reports that mouth movements have gone away with decrease in haldol but the anxiety, fear and hearing voices have come back; pt reports that her GF broke up with her due to the anxiety and fear; pt states she feels okay with that and needs to ut her health first. pt started a Day program in [place] called [facility] - she goes 2-3 times a week to be aound other people and get out of the house. Pt reports she wants a higher dose of haldol. we agreed to try adding 0.5mg in morning and she will continue with 1 mg at bedtime; if mouth movements or other involuntary movements return will change medication at next visit. Pt asked about diagnosis. She asked if she has schizophrenia; I tole her i do not think she has schizophrenia due to her interest in and skills interpersonally despite the fear, anxiety. She does have auditory hallucination but that does not equate to schizophrenia Past Psychiatric History: IPLOC age 10 (pt not sure why) again at age 15 due to depression, and again summer after drinking excessively was in [facility] near [place]. Has out patient therapy at [facility] in [place] with Belinda Lovelace. saw psychiatrist there but didnt feel heard. Outpt as child at [facility] (age 5-12 ) and [facility] (age 12-17) Subjective Subjective Subjective Medication Compliance: Yes Side effects from medications: No Review of Systems Medical Review of Systems: unchanged Mental Status Exam Mental Status Exam Patient Orientation: Person and Place Level of Consciousness: Awake Patient Behavior: Appropriate Mood Description: Anxious, Sad and Nervous Patient Cognition Impaired: No Ability to Follow Directions: Good Speech Pattern: Clear and Stuttering Memory Description: Intact Hallucinations: Auditory Delusions: Not Present Thought Process: Intact Thought Content: positive for Intact Judgement: Good Telehealth Telehealth Telehealth Platform: Telephone Location of provider rendering services: practice address Location of patient: address on file Patient Identification confirmed using: Name, : Yes Telehealth method: voice only Patient verbally consented to treatment: Yes Patient verbally consented to billing insurance company: Yes Patient informed of any privacy concerns related to visit: Yes Minutes spent on Phone/Video with Pt.: 25 Assessment and Plan Assessment & Plan (1) Verbal auditory hallucinations: Status: Acute Code(s): R44.0 - Auditory hallucinations (2) Panic disorder with agoraphobia: Status: Acute Code(s): F40.01 - Agoraphobia with panic disorder (3) Post traumatic stress disorder (PTSD): Status: Acute Code(s): F43.10 - Post-traumatic stress disorder, unspecified Medications: New haloperidol 0.5 mg PO .DAILY @ 0800 30 tabs 1RF Refilled haloperidol 1 mg PO BEDTIME 30 tabs 1RF lorazepam (Ativan) 1 mg PO BID 15 days PRN 30 tabs 2RF anxiety Counseling and coordination of Care Pt. Self Management counseling: Maintenance-social rhythm, Mod caffeine/ETOH intake, Sleep hygiene, Behavior activation, General coping skills and Problem solving Medication management counseling: Effectiveness, Side effects, Dosing range, Duration, Drug interaction and Adherence Diagnosis and Prognosis Counseling: Accuracy of diagnosis, Prognosis over time, Impact of diagnosis on life functions, Impact of family relationship, Problematic behaviors secondary to diagnosis and Adequacy of current interventions Details: I spent 40 minutes reviewing the record, seeing the patient and documenting in the medical record. Counseling provided to the patient/caregiver as outlined below. Addressed patient/caregiver concerns regarding current medication regime including effective adherence. Addressed patient/caregiver concerns regarding diagnosis and prognosis including accuracy of diagnosis, prognosis over time, impact of diagnosis. Addressed patient/caregiver concerns regarding impact of recent stressors. 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 pt reports repeating 6th grade 3x 7th grade 2x 8th grade hoe schooled, 9th grade at age 18 left school. Substance History: intermittent heavy alcohol use; hospitalized 2022 after episode of heavy alcohol use. now drinks 4 beer once a week Trauma History: seizure disorder has caused trauma; first seizure age 13 in ICU and then hospital in [place] 1 month. now fears seizure every day Coding Level of Care Code Tele Est Pt Level 4 (35280) Diagnoses Verbal auditory hallucinations R44.0 Panic disorder with agoraphobia F40.01 Post traumatic stress disorder (PTSD) F43.10
== END 2023-12-21 12:09 | disposition home or self-care (01) ==
LOC: HO.HOP 12:06
PROVIDERS: PCP Nurse Practitioner Family; Visit Provider Clinical Nurse Specialist Psychiatric/Mental Health
DX: R44.0 Auditory hallucinations (principal); F40.01 Agoraphobia with panic disorder; F43.10 Post-traumatic stress disorder, unspecified
CPT/HCPCS: 99214

== ENCOUNTER → 2023-12-21 12:06 | Outpatient (BNVA) | payer OTHER, SELFPAY | PROVIDERS: PCP Nurse Practitioner Family; Visit Provider Clinical Nurse Specialist Psychiatric/Mental Health ==

== ENCOUNTER 2024-01-11 14:08 | Outpatient (AMB) | payer OTHER, SELFPAY ==
--- NOTE | 2024-01-11 14:01 | A.OFFPSYCH_ITS ---
Intake Intake Visit Reasons: f/u consultation Program Therapist Required: No Allergies phenytoin Allergy (Intermediate, Verified 06/11/23 11:38) unknown Medication List - Last Reconciled 01/11/24 by Jennyfer Calhoun APRN clonazepam 2 mg PO DAILY PRN 30 days divalproex ER 1,500 mg (3 x 500 mg) PO DAILY 30 days haloperidol 1 mg PO BID indomethacin 25 mg PO TID PRN 30 days levetiracetam 2,000 mg (2 x 1,000 mg) PO BID 30 days lorazepam (Ativan) 1 mg PO BID PRN 15 days magnesium oxide 400 mg PO BEDTIME 30 days multivitamin with folic acid 400 mcg (Daily-Rosalba (with folic acid)) 1 tab PO DAILY 30 days oxcarbazepine 600 mg (2 x 300 mg) PO BID 30 days propranolol 10 mg PO BID 30 days pyridoxine (vitamin B6) 100 mg (2 x 50 mg) PO BID 30 days rosuvastatin 5 mg PO DAILY 30 days HPI- Psychiatric Chief Complaint: f/u consultation HPI Narrative: pt reports ongoing anxiety, avoidance. she reports voices are approximately 70% reduced. she reports ongoing frequent feelings that she is not real that things around her are not real. she says she avoids going out of the house because that feeling is worse when she leaves her house; she reports feeling like her body is light like a feather . she states when she leaves the house everything feels like it is moving much faster than sheis - she fees like she is moving in slow motion. all of these feelings and sensations make her feel scared and panicky. she has trouble finding words and says she stopped going to therapy because it is so hard to talk about her feelings and thoughts. she says because she didnt finish school she feels like she can't express herself. In our sessions she uses several different ways to describe and explain her experiences. she needs much encouragement not to give up trying to express herself. She reports the haldol has helped. she says the lorazepam helps but she is reluctant to take it due to reading about addiction. she says she sleeps as a coping skill. we talked about other coping skills and ways to reduce the derealization and anxiety. she likes to wash dishes because it is soothing- i encouraged her to continue to do that. we discussed other physical activities that could help her feel more in her body and less drealization such as weight lifting(low weight dumbells) walking, yoga. she says they have a yoga class at the day program she attend s and she will try it. she became tearful asking when these symptoms will go away. We discussed that the medications can control symptoms and that therapy, yoga, other physical activities and time can help reduce symptoms. she denies SI or HI. Past Psychiatric History: IPLOC age 10 (pt not sure why) again at age 15 due to depression, and again summer after drinking excessively was in [facility] [place]. Has out patient therapy at [facility] in [place] with Belinda Zuritana. saw psychiatrist there but didnt feel heard. Outpt as child at [facility] (age 5-12 ) and [facility] (age 12-17) Subjective Subjective Subjective Medication Compliance: Yes Side effects from medications: No Review of Systems Medical Review of Systems: unchanged Mental Status Exam Mental Status Exam Patient Appearance: Well Grooomed and Appropriate Patient Orientation: Person, Place, Time and Situation Level of Consciousness: Awake, Appropriate and Alert Patient Behavior: Appropriate and Crying Mood Description: Anxious and Sad Affect Description: Anxious and Sad Patient Cognition Impaired: No Ability to Follow Directions: Good Speech Pattern: Difficulty Finding Words, Stuttering, Delayed and Long Pauses Memory Description: Intact Hallucinations: Auditory Delusions: Not Present Perceptual Disturbances: Depersonalization, Derealization and Hallucinations Thought Process: Intact and Goal Oriented Thought Content: positive for Intact and positive for Goal Oriented Judgement: Fair Telehealth Telehealth Telehealth Platform: Other (please specify) ([email or web address]) Location of provider rendering services: practice address Location of patient: address on file Patient Identification confirmed using: Name, : Yes Telehealth method: video Patient verbally consented to treatment: Yes Patient verbally consented to billing insurance company: Yes Patient informed of any privacy concerns related to visit: Yes Minutes spent on Phone/Video with Pt.: 45 Assessment and Plan Assessment & Plan (1) Verbal auditory hallucinations: Status: Acute Code(s): R44.0 - Auditory hallucinations (2) Panic disorder with agoraphobia: Status: Acute Code(s): F40.01 - Agoraphobia with panic disorder (3) Post traumatic stress disorder (PTSD): Status: Acute Code(s): F43.10 - Post-traumatic stress disorder, unspecified (4) Movement disorder: Status: Acute Code(s): G25.9 - Extrapyramidal and movement disorder, unspecified Plan no TD like movements seen in video appt today- pt denies return of TD like movements increase haldol to 1 mg bid at pt request and will switch to risperdal if Mouth movements retun encouraged pt to use ativan as needed differential diagnosis is side effects from keppra or combination of medications pt will see neurology next month for follow up continue education re PTSD and coping skills Medications: Changed From haloperidol 1 mg PO BEDTIME 30 tabs 1RF To haloperidol 1 mg PO BID 60 tabs 1RF Discontinued haloperidol Discontinued Reason: Doctor's Order 0.5 mg PO .DAILY @ 0800 30 tabs 1RF Counseling and coordination of Care Pt. Self Management counseling: Breathing, Exercise, Maintenance-social rhythm, Mindfulness, Mod caffeine/ETOH intake and Behavior activation Medication management counseling: Effectiveness, Side effects, Dosing range, Duration, Drug interaction and Adherence Diagnosis and Prognosis Counseling: Accuracy of diagnosis, Prognosis over time, Impact of diagnosis on life functions, Impact of family relationship, Problematic behaviors secondary to diagnosis and Adequacy of current interventions Details: I spent 60 minutes reviewing the record, seeing the patient and documenting in the medical record. Counseling provided to the patient/caregiver as outlined below. Addressed patient/caregiver concerns regarding current medication regime including effective adherence. Addressed patient/caregiver concerns regarding diagnosis and prognosis including accuracy of diagnosis, prognosis over time, impact of diagnosis. Addressed patient/caregiver concerns regarding impact of recent stressors. 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 pt reports repeating 6th grade 3x 7th grade 2x 8th grade hoe schooled, 9th grade at age 18 left school. Substance History: intermittent heavy alcohol use; hospitalized 2022 after episode of heavy alcohol use. now drinks 4 beer once a week Trauma History: seizure disorder has caused trauma; first seizure age 13 in ICU and then hospital in [place] 1 month. now fears seizure every day Coding Level of Care Code Tele Est Pt Level 5 (75780) Tele Therapy 30m w/E&M (17907) Diagnoses Verbal auditory hallucinations R44.0 Panic disorder with agoraphobia F40.01 Post traumatic stress disorder (PTSD) F43.10 Movement disorder G25.9
== END 2024-01-11 14:11 | disposition home or self-care (01) ==
LOC: HO.HOP 14:08
PROVIDERS: PCP Nurse Practitioner Family; Visit Provider Clinical Nurse Specialist Psychiatric/Mental Health
DX: F40.01 Agoraphobia with panic disorder (principal); R44.0 Auditory hallucinations; F43.11 Post-traumatic stress disorder, acute; G25.9 Extrapyramidal and movement disorder, unspecified
CPT/HCPCS: 90833; 99215

== ENCOUNTER 2024-02-08 11:32 | Outpatient (AMB) | payer OTHER, SELFPAY ==
--- NOTE | 2024-02-08 12:28 | A.OFFPSYCH_ITS ---
Intake Intake Visit Reasons: depression Allergies phenytoin Allergy (Intermediate, Verified 06/11/23 11:38) unknown Medication List - Last Reconciled 02/08/24 by Jennyfer Calhoun APRN clonazepam 2 mg PO DAILY PRN 30 days divalproex ER 1,500 mg (3 x 500 mg) PO DAILY 30 days escitalopram oxalate (Lexapro) 5 mg PO DAILY haloperidol 1 mg orally Take 1 tablet in the morning and 2 at bedtime; indomethacin 25 mg PO TID PRN 30 days levetiracetam 2,000 mg (2 x 1,000 mg) PO BID 30 days lorazepam (Ativan) 1 mg PO BID PRN 15 days magnesium oxide 400 mg PO BEDTIME 30 days multivitamin with folic acid 400 mcg (Daily-Rosalba (with folic acid)) 1 tab PO DAILY 30 days oxcarbazepine 600 mg (2 x 300 mg) PO BID 30 days propranolol 10 mg PO BID 30 days pyridoxine (vitamin B6) 100 mg (2 x 50 mg) PO BID 30 days rosuvastatin 5 mg PO DAILY 30 days HPI- Psychiatric Chief Complaint: depression HPI Narrative: pt reports still hearing voices - more at night; last night felt very scared. she denies SI or Hi. she felt scared she couldn't control her mind/thoughts. she reports no side effects from haldol; no evidence of mouth movements; no sign of TD movements; she denies other involuntary body movements including rocking her body or moving her toes. She reports she is anxious every day. she denies feeling depressed although she is tearful about the voices. she see neurologist next month. she had a very difficult experience with a date recently- they met on line and talked for 2 weks and thens he wwnet to meet the woman. she stayed at the woman's house fro the weekend and the woman encouraged her to stay longer and encouraged her to talk more about herslef. she told her about her medical and mental health and the woman called the police stating she didn't feel safe with the patient; she says the the police were nice with her but they took her to a local ED in [place] ad she was evaluated by crisis. they did not see any reason to keep her. she did not harm herself or the woman ; she had no SI or HI; she was coherent and logical. Pt denies ETOH or drug use for 4+ month. Past Psychiatric History: IPLOC age 10 (pt not sure why) again at age 15 due to depression, and again summer after drinking excessively was in [facility] near [place]. Has out patient therapy at [facility] in [place] with Belinda Lovelace. saw psychiatrist there but didnt feel heard. Outpt as child at [facility] (age 5-12 ) and [facility] (age 12-17) Subjective Subjective Subjective Medication Compliance: Yes Side effects from medications: No Review of Systems Medical Review of Systems: unchanged Mental Status Exam Mental Status Exam Patient Appearance: Well Grooomed and Appropriate Patient Orientation: Person, Place, Time and Situation Level of Consciousness: Awake and Appropriate Patient Behavior: Appropriate, Anxious and Crying Mood Description: Anxious Affect Description: Anxious Patient Cognition Impaired: No Ability to Follow Directions: Good Speech Pattern: Clear Memory Description: Intact Hallucinations: Auditory Delusions: Not Present Perceptual Disturbances: Depersonalization and Derealization Thought Process: Intact Thought Content: positive for Intact and positive for Goal Oriented Judgement: Fair Telehealth Telehealth Telehealth Platform: Other (please specify) ([employer]) Location of provider rendering services: practice address Location of patient: address on file Patient Identification confirmed using: Name, : Yes Telehealth method: video Patient verbally consented to treatment: Yes Patient verbally consented to billing insurance company: Yes Patient informed of any privacy concerns related to visit: Yes Minutes spent on Phone/Video with Pt.: 30 Assessment and Plan Assessment & Plan (1) Verbal auditory hallucinations: Status: Acute Code(s): R44.0 - Auditory hallucinations (2) Panic disorder with agoraphobia: Status: Acute Code(s): F40.01 - Agoraphobia with panic disorder (3) Post traumatic stress disorder (PTSD): Status: Acute Code(s): F43.10 - Post-traumatic stress disorder, unspecified Plan increase haldol start lexapro 5 mg daily TW contact neurolgy sindi garcia possible side effects from keppra and they will discuss with patient at next visit 02/23 Medications: New escitalopram oxalate (Lexapro) 5 mg PO DAILY 30 tabs 1RF Changed From haloperidol 1 mg PO BID 60 tabs 1RF To haloperidol 1 mg orally Take 1 tablet in the morning and 2 at bedtime; 90 tabs 1RF Refilled lorazepam (Ativan) 1 mg PO BID PRN 30 tabs 2RF anxiety 15 days Counseling and coordination of Care Pt. Self Management counseling: Maintenance-social rhythm, Mod caffeine/ETOH intake and Sleep hygiene Medication management counseling: Effectiveness, Side effects, Dosing range, Duration, Drug interaction and Adherence Diagnosis and Prognosis Counseling: Accuracy of diagnosis, Prognosis over time, Impact of diagnosis on life functions, Impact of family relationship, Problematic behaviors secondary to diagnosis and Adequacy of current interventions Details: I spent 45 minutes reviewing the record, seeing the patient and documenting in the medical record. Counseling provided to the patient/caregiver as outlined below. Addressed patient/caregiver concerns regarding current medication regime including effective adherence. Addressed patient/caregiver concerns regarding diagnosis and prognosis including accuracy of diagnosis, prognosis over time, impact of diagnosis. Addressed patient/caregiver concerns regarding impact of recent stressors. 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 pt reports repeating 6th grade 3x 7th grade 2x 8th grade [employer] school[employer], 9th grade at age 18 left school. Substance History: intermittent heavy alcohol use; hospitalized 2022 after episode of heavy alcohol use. now drinks 4 beer once a week Trauma History: seizure disorder has caused trauma; first seizure age 13 in ICU and then hospital in [place] 1 month. now fears seizure every day Coding Level of Care Code Tele Est Pt Level 5 (40751) Diagnoses Verbal auditory hallucinations R44.0 Panic disorder with agoraphobia F40.01 Post traumatic stress disorder (PTSD) F43.10
== END 2024-02-08 11:33 | disposition home or self-care (01) ==
LOC: HO.HOP 11:32
PROVIDERS: PCP Nurse Practitioner Family; Visit Provider Clinical Nurse Specialist Psychiatric/Mental Health
DX: R44.0 Auditory hallucinations (principal); F40.01 Agoraphobia with panic disorder; F43.10 Post-traumatic stress disorder, unspecified
CPT/HCPCS: 99215

== ENCOUNTER 2024-02-24 09:17 | Outpatient (AMB) | payer OTHER, SELFPAY ==
[2024-02-24 09:37] VITALS: BP 122/74; PULSE 86; O2SAT 98; BMI 47.4
--- NOTE | 2024-02-24 09:37 | A.OFFVIS_ITS ---
Vital Signs 02/24/24 09:37 Height 5 ft 2 in Weight 259 lb 4 oz BMI 47.4 BP 122/74 Blood Pressure Location Rt brachial Position Sitting Pulse 86 Pulse Source Pulse Oximeter Pulse Oximetry (%) 98 Oxygen Delivery Method Room Air Intake Visit Reasons: 6 mon follow up Allergies phenytoin Allergy (Intermediate, Verified 02/24/24 09:40) unknown Medication List - Last Reconciled 02/24/24 by KOLBY Chavis clonazepam 2 mg PO DAILY PRN 30 days divalproex ER 1,500 mg (3 x 500 mg) PO DAILY 30 days escitalopram oxalate (Lexapro) 5 mg PO DAILY haloperidol 1 mg orally Take 1 tablet in the morning and 2 at bedtime; indomethacin 25 mg PO TID PRN 30 days levetiracetam 2,000 mg (2 x 1,000 mg) PO BID 30 days lorazepam (Ativan) 1 mg PO BID PRN 15 days magnesium oxide 400 mg PO BEDTIME 30 days multivitamin with folic acid 400 mcg (Daily-Rosalba (with folic acid)) 1 tab PO DAILY 30 days oxcarbazepine 600 mg (2 x 300 mg) PO BID 30 days propranolol 10 mg PO BID 30 days pyridoxine (vitamin B6) 100 mg (2 x 50 mg) PO BID 30 days rosuvastatin 5 mg PO DAILY 30 days HPI Comments Details: 23-yr-old female presents for f/u visit of seizure and headache. Pt has started to see psychiatry at [facility]. She states that she has a good working relationship with her clinician. She feels her new psychiatric medications are helping. Psychiatry had reached out, with question if the levetiracetam could be exacerbating mood symptoms. Pt states she has started going to a day program in [facility]. She states it is nice there, but most of the attendees are older or if they are younger, they have more cognitive issues. When she does go there she usually talks with the staff members. She can still be forgetful. She states her mood is better and she has been able to go outside more. She does use her lorazepam for anxiety p.r.n.. She does share that she had a recent experience of meeting a woman online, and having visited this woman's house in [place], while the patient was sitting in the women's home, and the woman had taken her dog for a walk, the woman called 911 and patient was brought to the local ER for crisis eval and was discharged home to the care of her sister who came to get her. Patient states she was unaware that 911 had been called, and that there had been no physical or verbal altercation, patient herself did not have any SI s/s. Patient states after the fact, the woman told her that she seemed to calm which made the woman worry for her safety and that is why she called 911, and that the woman herself was prone to paranoia due to personal history of trauma. The patient is continuing to speak with this woman, however states she has no plans to ever return to this woman's house again, as she states she can not trust her. Denies seizure activity. States she has been compliant with her AED therapy. She does not have a current prescription for the p.r.n. clonazepam for breakthrough seizure. She states overall her tremors are stable- may notice it when she is picking something up. States propranolol is helpful for this. She sometimes has the stabbing headache, Indomethacin helps, but has run out. She continues to have snoring, daytime sleepiness, sleep difficulties. PFSH Family History Father Heart disease Mother Cancer Social History Alcohol intake: current Alcohol intake frequency: a few times a month Alcohol type: beer Patient Tobacco Use Status: Never used Tobacco Physical Exam Vital Signs: Last Vital Signs Pulse 86 02/24/24 09:37 BP 122/74 02/24/24 09:37 Pulse Ox 98 02/24/24 09:37 Oxygen Delivery Method Room Air 02/24/24 09:37 BMI result Body Mass Index 47.4 Const General: cooperative and no acute distress Resp Effort & Inspection: normal respiratory effort and able to speak in complete sentences Neuro Other: Alert and oriented with mild short-term memory lapses Less stutter today. 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 Onset at age 14. 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 Improved since onset. Code(s): R47.9 - Unspecified speech disturbances Category: Medical (4) Mood disorder: Comment: anxiety and depressive features. Code(s): F39 - Unspecified mood [affective] disorder Category: Medical (5) Stabbing headache: Comment: indomethacin-responsive Code(s): G44.85 - Primary stabbing headache Category: Medical (6) Snoring: Code(s): R06.83 - Snoring Category: Medical (7) Excessive daytime sleepiness: Comment: ESS- 15 Code(s): G47.19 - Other hypersomnia Category: Medical (8) Sleep difficulties: Code(s): G47.9 - Sleep disorder, unspecified Category: Medical Plan For mood disorder- Continue to follow-up with psychiatry as scheduled. Patient encouraged to attend her day program regularly and to continue to strive to make friendships. Discussed that not all people we meet, need to become our friends or be invited in to our inner circles and thus I concur with her that she should not visit this woman she is met from [place]. Per Psychiatry, patient has significant fear of seizure recurrence. I would be hesitant to change her AED treatment at least at this time, as changing her AED treatment may result in breakthrough seizure activity, which could decompensate her mood which she feels is improving at this point. If patient is able to work with her therapist on strategies to reduce anxiety related to fear of josue kthrough seizure, then we could consider switching levetiracetam to another AED. For now continue the vitamin B6 supplement, as this can mitigate risk for mood changes with levetiracetam use. ? For seizure: Continue Depakote ER 500mg qd. Continue Keppra 2000mg bid. Continue Trileptal 600mg bid. Continue Vitamin B6 100mg bid. Continue Clonazepam ODT 2mg prn breakthrough seizure. 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 Check CBC, CMP, depakote, levetiracetam level. For tremor: Continue Propranolol 10mg bid. ? For sleep: Patient is advised to undergo-lab PSG to assess for sleep apnea in setting of pt w/ BMI > 40.. ? For stabbing headaches: Continue Magnesium 400mg qhs. Continue Indomethacin 25mg po TID prn. Future considerations Propranolol 60mg Er or 10mg IR bid prn, consider PT. Will follow-up upon review of above and patient to follow-up in clinic in 6 months or sooner prn. Orders: Orders Complete Blood Count Auto Diff Today G40.909 - Epilepsy, unspecified, not intractable, without status epilepticus Levetiracetam Keppra Today G40.909 - Epilepsy, unspecified, not intractable, without status epilepticus Comprehensive Met. Panel Today G40.909 - Epilepsy, unspecified, not intractable, without status epilepticus Valproate Today G40.909 - Epilepsy, unspecified, not intractable, without status epilepticus RT PSG in-lab sleep study Today G47.19 - Other hypersomnia, G47.9 - Sleep disorder, unspecified, R06.83 - Snoring Medications: Refilled divalproex ER 1,500 mg (3 x 500 mg) PO DAILY 30 days 90 tabs 6RF propranolol 10 mg PO BID 30 days 60 tabs 6RF pyridoxine (vitamin B6) 100 mg (2 x 50 mg) PO BID 30 days 120 tabs 6RF magnesium oxide may hold for loose stools 400 mg PO BEDTIME 30 days 30 tabs 6RF levetiracetam 2,000 mg (2 x 1,000 mg) PO BID 30 days 120 tabs 6RF oxcarbazepine 600 mg (2 x 300 mg) PO BID 30 days 120 tabs 6RF indomethacin administer with food or milk 25 mg PO TID 30 days PRN 90 caps 3RF headache clonazepam for seizure lasting > 2 minutes. 2 mg PO DAILY 30 days PRN 5 tabs 1RF sezuire Coding Level of Care Code Est Pt Level 4 (07984) Diagnoses Epilepsy G40.909 Tremor R25.1 Speech disorder R47.9 Mood disorder F39 Stabbing headache G44.85 Snoring R06.83 Excessive daytime sleepiness G47.19 Sleep difficulties G47.9
== END 2024-02-24 10:33 | disposition home or self-care (01) ==
PROVIDERS: PCP Nurse Practitioner Family; Visit Provider Nurse Practitioner Family
DX: G40.909 Epilepsy, unspecified, not intractable, without status epilepticus (principal); R25.1 Tremor, unspecified; R47.9 Unspecified speech disturbances; F39 Unspecified mood [affective] disorder; G44.85 Primary stabbing headache; R06.83 Snoring; G47.19 Other hypersomnia; G47.9 Sleep disorder, unspecified
CPT/HCPCS: 99214

== ENCOUNTER → 2024-02-24 09:17 | Outpatient (BNVA) | payer OTHER, SELFPAY | PROVIDERS: PCP Nurse Practitioner Family; Visit Provider Nurse Practitioner Family | DX: G40.909 Epilepsy, unspecified, not intractable, without status epilepticus (principal); G44.85 Primary stabbing headache; G47.19 Other hypersomnia; G47.9 Sleep disorder, unspecified; R25.1 Tremor, unspecified; R47.9 Unspecified speech disturbances; R06.83 Snoring; F39 Unspecified mood [affective] disorder | CPT/HCPCS: 99212 ==

== ENCOUNTER 2024-03-02 10:42 | Outpatient (AMB) | payer OTHER, SELFPAY ==
--- NOTE | 2024-03-02 10:21 | A.OFFPSYCH_ITS ---
Intake Intake Visit Reasons: follow up [employer] Required: No Allergies phenytoin Allergy (Intermediate, Verified 02/24/24 09:40) unknown Medication List - Last Reconciled 03/02/24 by Jennyfer Calhoun APRN clonazepam 2 mg PO DAILY PRN 30 days divalproex ER 1,500 mg (3 x 500 mg) PO DAILY 30 days escitalopram oxalate (Lexapro) 5 mg PO DAILY indomethacin 25 mg PO TID PRN 30 days levetiracetam 2,000 mg (2 x 1,000 mg) PO BID 30 days lorazepam (Ativan) 1 mg PO TID PRN magnesium oxide 400 mg PO BEDTIME 30 days multivitamin with folic acid 400 mcg (Daily-Rosalba (with folic acid)) 1 tab PO DAILY 30 days oxcarbazepine 600 mg (2 x 300 mg) PO BID 30 days propranolol 10 mg PO BID 30 days pyridoxine (vitamin B6) 100 mg (2 x 50 mg) PO BID 30 days risperidone (Risperdal) 1 mg PO BEDTIME rosuvastatin 5 mg PO DAILY 30 days HPI- Psychiatric Chief Complaint: follow up HPI Narrative: Iris reports she stopped the haldol due to TD movements. She said they worsened aftet last increase; she report ssignificant sleep disruption without it. She continues to hear voices . she feels scared at times; she is able to reality test and knows the voices aren't real. She continues to have a sense of derealization; we again discussed ways to feel more in her body will lead to less derealization; I encouraged her to ask her therapist to work on grounding techniques with her. She was able to talk with her mother and tell her about the voices and anxiety. her mother was supportive; she met with her neurologist and they discussed possibility of changing the seizure meds but decided against it due to risk of breakthrough seizures. she denies ETOH use. She denies SI or HI Past Psychiatric History: IPLOC age 10 (pt not sure why) again at age 15 due to depression, and again summer after drinking excessively was in [facility] near [place]. Has out patient therapy at [facility] in [place] with Belinda Lovelace. saw psychiatrist there but didnt feel heard. Outpt as child at [facility] (age 5-12 ) and [facility] (age 12-17) Subjective Subjective Subjective Medication Compliance: No (pt stoppped haldol due to TD mouth movements ) Side effects from medications: Yes Review of Systems Medical Review of Systems: unchanged Review of Systems Comments: stutter no mouth movement snoted in telehalth session today Reports as per [facility] Mental Status Exam Mental Status Exam Patient Appearance: Well Grooomed and Appropriate Patient Orientation: Person, Place, Time and Situation Level of Consciousness: Awake, Appropriate and Alert Patient Behavior: Appropriate Mood Description: Constricted, Anxious and Sad Affect Description: Constricted, Anxious and Sad Patient Cognition Impaired: No Ability to Follow Directions: Good Speech Pattern: Clear, Soft-Spoken and Stuttering Memory Description: Intact Hallucinations: None Delusions: Not Present Thought Process: Intact and Goal Oriented Thought Content: positive for Intact and positive for Goal Oriented Judgement: Good Telehealth Telehealth Telehealth Platform: Other (please specify) ([employer]) Location of provider rendering services: practice address Location of patient: address on file Patient Identification confirmed using: Name, : Yes Telehealth method: video Patient verbally consented to treatment: Yes Patient verbally consented to billing insurance company: Yes Patient informed of any privacy concerns related to visit: Yes Minutes spent on Phone/Video with Pt.: 30 Assessment and Plan Assessment & Plan (1) Movement disorder: Status: Acute Code(s): G25.9 - Extrapyramidal and movement disorder, unspecified (2) Verbal auditory hallucinations: Status: Acute Code(s): R44.0 - Auditory hallucinations (3) Panic disorder with agoraphobia: Status: Acute Code(s): F40.01 - Agoraphobia with panic disorder (4) Post traumatic stress disorder (PTSD): Status: Acute Code(s): F43.10 - Post-traumatic stress disorder, unspecified Plan continue lexapro 5 mg daily risperdal 1mg at bedtime stop haldol increase lorazepam 1mg TID prn panic and take at least 2 hours apart watch for dizziness or sedation Medications: New risperidone (Risperdal) 1 mg PO BEDTIME 30 tabs 2RF lorazepam (Ativan) 1 mg PO TID PRN 90 tabs 1RF anxiety Counseling and coordination of Care Pt. Self Management counseling: Maintenance-social rhythm, Sleep hygiene, Behavior activation, General coping skills and Problem solving Medication management counseling: Effectiveness, Side effects, Dosing range, Duration, Drug interaction and Adherence Diagnosis and Prognosis Counseling: Accuracy of diagnosis, Prognosis over time, Impact of diagnosis on life functions, Impact of family relationship, Problematic behaviors secondary to diagnosis and Adequacy of current interventions Details-Diagnosis/Prognosis counseling: discussed strategies to reduce depersonalization and derealization; discussedhow to ask therapist to teach her grounding coping skills. Details: I spent 40 minutes reviewing the record, seeing the patient and documenting in the medical record. Counseling provided to the patient/caregiver as outlined below. Addressed patien t/caregiver concerns regarding current medication regime including effective adherence. Addressed patient/caregiver concerns regarding diagnosis and prognosis including accuracy of diagnosis, prognosis over time, impact of diagnosis. Addressed patient/caregiver concerns regarding impact of recent stressors. 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 pt reports repeating 6th grade 3x 7th grade 2x 8th grade h[employer] schooled, 9th grade at age 18 left school. Substance History: intermittent heavy alcohol use; hospitalized 2022 after episode of heavy alcohol use. now drinks 4 beer once a week Trauma History: seizure disorder has caused trauma; first seizure age 13 in ICU and then hospital in [place] 1 month. now fears seizure every day Coding Level of Care Code Tele Est Pt Level 4 (14435) Tele Therapy 30m w/E&M (86529) Diagnoses Movement disorder G25.9 Verbal auditory hallucinations R44.0 Panic disorder with agoraphobia F40.01 Post traumatic stress disorder (PTSD) F43.10
== END 2024-03-02 10:43 | disposition home or self-care (01) ==
LOC: HO.HOP 10:42
PROVIDERS: PCP Nurse Practitioner Family; Visit Provider Clinical Nurse Specialist Psychiatric/Mental Health
DX: F40.01 Agoraphobia with panic disorder (principal); R44.0 Auditory hallucinations; G25.9 Extrapyramidal and movement disorder, unspecified; F43.11 Post-traumatic stress disorder, acute
CPT/HCPCS: 90833; 99214

== ENCOUNTER 2024-03-27 17:26 | Outpatient (AMB) | payer OTHER, SELFPAY ==
--- NOTE | 2024-03-27 16:43 | MHC.OFFVISPS ---
Intake Intake Visit Reasons: consult follow up Front Office Administrator Required: No Allergies phenytoin Allergy (Intermediate, Verified 02/24/24 09:40) unknown Medication List - Last Reconciled 03/27/24 by Jennyfer Calhoun APRN clonazepam 2 mg PO DAILY PRN 30 days divalproex ER 1,500 mg (3 x 500 mg) PO DAILY 30 days escitalopram oxalate (Lexapro) 5 mg PO DAILY indomethacin 25 mg PO TID PRN 30 days levetiracetam 2,000 mg (2 x 1,000 mg) PO BID 30 days lorazepam (Ativan) 1 mg PO TID PRN magnesium oxide 400 mg PO BEDTIME 30 days multivitamin with folic acid 400 mcg (Daily-Rosalba (with folic acid)) 1 tab PO DAILY 30 days oxcarbazepine 600 mg (2 x 300 mg) PO BID 30 days propranolol 10 mg PO BID 30 days pyridoxine (vitamin B6) 100 mg (2 x 50 mg) PO BID 30 days risperidone (Risperdal) 1 mg PO BEDTIME rosuvastatin 5 mg PO DAILY 30 days HPI- Psychiatric Chief Complaint: consult follow up HPI Narrative: feel scared frequently; afraid something bad will happen to her; still feeling derealization when out of the house. decrease in voices with risperdal at night. no SI or HI. Talked about when she had the first seizure how her whole life changed- she was in hospital for year learning how to talk and walk again- she had speech therapy and PT. she had to leave school and be home schooled. she thinks that the feeling scared and afraid bad things would happen started then. discussed trauma response to medical events or other overwhelming events. she is still processing this. she feels alone sometimes like other people don't understand and that they say you have nothing to be anxious about. She does say she can seek comfort from her mother when she feels overwhlemed with anxiety or unreal- hugging her mother helps her feel real and more in her body. Discussed increasing thelexapro for trauma?PTSD. pt feels the risperdal has helped and reports no side effects Past Psychiatric History: IPLOC age 10 (pt not sure why) again at age 15 due to depression, and again summer after drinking excessively was in [facility] near [place] Has out patient therapy at [facility] in [place] with Belinda Lovelace. saw psychiatrist there but didnt feel heard. Outpt as child at [facility] (age 5-12 ) and [facility] (age 12-17) Subjective Subjective Subjective Medication Compliance: Yes Side effects from medications: No Review of Systems Medical Review of Systems: unchanged Mental Status Exam Mental Status Exam Patient Orientation: Person, Place, Time and Situation Level of Consciousness: Awake and Alert Patient Behavior: Appropriate Mood Description: Sad Ability to Follow Directions: Good Speech Pattern: Clear, Appropriate and Delayed Memory Description: Intact Hallucinations: Auditory Perceptual Disturbances: Derealization Thought Process: Intact and Goal Oriented Thought Content: positive for Intact and positive for Goal Oriented Judgement: Good Telehealth Telehealth Telehealth Platform: Telephone Location of provider rendering services: practice address Location of patient: address on file Patient Identification confirmed using: Name, : Yes Telehealth method: voice only Patient verbally consented to treatment: Yes Patient verbally consented to billing insurance company: Yes Patient informed of any privacy concerns related to visit: Yes Minutes spent on Phone/Video with Pt.: 20 Assessment and Plan Assessment & Plan (1) Verbal auditory hallucinations: Status: Acute Code(s): R44.0 - Auditory hallucinations (2) Post traumatic stress disorder (PTSD): Status: Acute Code(s): F43.10 - Post-traumatic stress disorder, unspecified Plan increase lexapro to 10mg daily continue risperdal and ativan Medications: New escitalopram oxalate (Lexapro) 10 mg PO DAILY 30 tabs 2RF Refilled risperidone (Risperdal) 1 mg PO BEDTIME 30 tabs 2RF Counseling and coordination of Care Medication management counseling: Effectiveness, Side effects, Dosing range, Duration, Drug interaction and Adherence Diagnosis and Prognosis Counseling: Accuracy of diagnosis, Prognosis over time, Impact of diagnosis on life functions, Impact of family relationship, Problematic behaviors secondary to diagnosis and Adequacy of current interventions Details: I spent 30 minutes reviewing the record, seeing the patient and documenting in the medical record. Counseling provided to the patient/caregiver as outlined below. Addressed patient/caregiver concerns regarding current medication regime including effective adherence. Addressed patient/caregiver concerns regarding diagnosis and prognosis including accuracy of diagnosis, prognosis over time, impact of diagnosis. Addressed patient/caregiver concerns regarding impact of recent stressors. 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 pt reports repeating 6th grade 3x 7th grade 2x 8th grade [employer] schooled, 9th grade at age 18 left school. Substance History: intermittent heavy alcohol use; hospitalized 2022 after episode of heavy alcohol use. now drinks 4 beer once a week Trauma History: seizure disorder has caused trauma; first seizure age 13 in ICU and then hospital in [place] 1 month. now fears seizure every day Coding Level of Care Code Tele Est Pt Level 3 (70394) Diagnoses Verbal auditory hallucinations R44.0 Post traumatic stress disorder (PTSD) F43.10
== END 2024-03-27 17:26 | disposition home or self-care (01) ==
LOC: HO.HOP 17:26
PROVIDERS: PCP Nurse Practitioner Family; Visit Provider Clinical Nurse Specialist Psychiatric/Mental Health
DX: R44.0 Auditory hallucinations (principal); F43.10 Post-traumatic stress disorder, unspecified
CPT/HCPCS: 98013

== ENCOUNTER → 2024-03-27 17:26 | Outpatient (BNVA) | payer OTHER, SELFPAY | PROVIDERS: PCP Nurse Practitioner Family; Visit Provider Clinical Nurse Specialist Psychiatric/Mental Health | DX: R44.0 Auditory hallucinations (principal); F43.10 Post-traumatic stress disorder, unspecified ==

== ENCOUNTER 2024-04-18 11:58 | Outpatient (AMB) | payer OTHER, SELFPAY ==
--- NOTE | 2024-04-18 11:39 | MHC.OFFVISPS ---
Intake Intake Visit Reasons: f/u consultation Filler Spreader Required: No Allergies phenytoin Allergy (Intermediate, Verified 02/24/24 09:40) unknown Medication List - Last Reconciled 04/18/24 by Jennyfer Calhoun APRN clonazepam 2 mg PO DAILY PRN 30 days divalproex ER 1,500 mg (3 x 500 mg) PO DAILY 30 days escitalopram oxalate (Lexapro) 10 mg PO DAILY indomethacin 25 mg PO TID PRN 30 days levetiracetam 2,000 mg (2 x 1,000 mg) PO BID 30 days lorazepam (Ativan) 1 mg PO TID PRN magnesium oxide 400 mg PO BEDTIME 30 days multivitamin with folic acid 400 mcg (Daily-Rosalba (with folic acid)) 1 tab PO DAILY 30 days oxcarbazepine 600 mg (2 x 300 mg) PO BID 30 days propranolol 10 mg PO BID 30 days pyridoxine (vitamin B6) 100 mg (2 x 50 mg) PO BID 30 days risperidone (Risperdal) 1 mg PO BEDTIME rosuvastatin 5 mg PO DAILY 30 days HPI- Psychiatric Chief Complaint: f/u consultation HPI Narrative: pt report some improvement but continues to have intermittent panic. she sometimes hears voices at night still and feels scared; she reports one episode of feeling so scared she had thoughts wanting to . she didn't tell anyone because she thoughts she would get in trouble. she reports she can ask her mother for help and it comforts her to talk with her mother; she tells me today that her mother also has panic attacks. Her mother joined us for some of the session; I advised pt to call 911 if she felt suicidal again or had thoughts of dying or killing herself. she agreed to do so. No ETOH use. Past Psychiatric History: IPLOC age 10 (pt not sure why) again at age 15 due to depression, and again summer after drinking excessively was in [facility] near [place]. Has out patient therapy at [facility] in [place] with Belinda Lovelace. saw psychiatrist there but didnt feel heard. Outpt as child at [facility] (age 5-12 ) and [facility] (age 12-17) Subjective Subjective Subjective Medication Compliance: Yes Side effects from medications: No Review of Systems Medical Review of Systems: unchanged Mental Status Exam Mental Status Exam Patient Appearance: Well Grooomed and Appropriate Patient Orientation: Person, Place, Time and Situation Level of Consciousness: Awake, Appropriate and Alert Patient Behavior: Appropriate and Crying Mood Description: Anxious and Sad Affect Description: Anxious and Sad Patient Cognition Impaired: No Ability to Follow Directions: Good Speech Pattern: Stuttering, Delayed and Poor Articulation Memory Description: Intact Hallucinations: Auditory Delusions: Not Present Thought Process: Intact Thought Content: positive for Intact and positive for Suicidal Ideation (intermittent; passive no plan or intent ) Judgement: Good Telehealth Telehealth Telehealth Platform: Other (please specify) (eliu.) Location of provider rendering services: practice address Location of patient: address on file Patient Identification confirmed using: Name, : Yes Telehealth method: video Patient verbally consented to treatment: Yes Patient verbally consented to billing insurance company: Yes Patient informed of any privacy concerns related to visit: Yes Minutes spent on Phone/Video with Pt.: 30 Assessment and Plan Assessment & Plan (1) Verbal auditory hallucinations: Status: Acute Code(s): R44.0 - Auditory hallucinations (2) Panic disorder with agoraphobia: Status: Acute Code(s): F40.01 - Agoraphobia with panic disorder (3) Post traumatic stress disorder (PTSD): Status: Acute Code(s): F43.10 - Post-traumatic stress disorder, unspecified Plan increase lexapro 20mg daily increase risperdal 2mg at bedtime ativan 1mg tid prn panic risperdal 1 mg qd prn intrusive thoughts advised to reconnect with therapist advised to call 911 if has SI again Medications: New escitalopram oxalate (Lexapro) 20 mg PO DAILY 90 tabs 1RF Changed From risperidone (Risperdal) 1 mg PO BEDTIME 30 tabs 2RF To risperidone (Risperdal) 2 mg (2 x 1 mg) PO BEDTIME 60 tabs 2RF Refilled lorazepam (Ativan) 1 mg PO TID PRN 90 tabs 2RF anxiety Discontinued escitalopram oxalate (Lexapro) Discontinued Reason: Doctor's Order 10 mg PO DAILY 30 tabs 2RF Counseling and coordination of Care Pt. Self Management counseling: Maintenance-social rhythm, Mod caffeine/ETOH intake, Sleep hygiene, Behavior activation, General coping skills and Problem solving Medication management counseling: Effectiveness, Side effects, Dosing range, Duration, Drug interaction and Adherence Diagnosis and Prognosis Counseling: Accuracy of diagnosis, Prognosis over time, Impact of diagnosis on life functions, Impact of family relationship, Problematic behaviors secondary to diagnosis and Adequacy of current interventions Details: I spent 40 minutes reviewing the record, seeing the patient and documenting in the medical record. Counseling provided to the patient/caregiver as outlined below. Addressed patient/caregiver concerns regarding current medication regime including effective adherence. Addressed patient/caregiver concerns regarding diagnosis and prognosis including accuracy of diagnosis, prognosis over time, impact of diagnosis. Addressed patient/caregiver concerns regarding impact of recent stressors. 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 pt reports repeating 6th grade 3x 7th grade 2x 8th grade [employer] schooled, 9th grade at age 18 left school. Substance History: intermittent heavy alcohol use; hospitalized 2022 after episode of heavy alcohol use. now drinks 4 beer once a week Trauma History: seizure disorder has caused trauma; first seizure age 13 in ICU and then hospital in [place] 1 month. now fears seizure every day Coding Level of Care Code Tele Est Pt Level 4 (41417) Diagnoses Verbal auditory hallucinations R44.0 Panic disorder with agoraphobia F40.01 Post traumatic stress disorder (PTSD) F43.10
--- OUTSIDE RECORDS SUMMARY | 2024-04-18 14:43 | XMS_ITS | Clinical Summary ---
Author Organization [facility] it Address [address] [place] [address] Care Team Providers Care Pet Sitting Name Role Phone Unavailable Primary Care Provider Unavailabl e Social History Tobacco Use Types Packs/Day Years Used Date Smoking Tobacco: Never Assessed Comments Unknown Sex and Gender Information Value Date Recorded Sex Assigned at Not on file Legal Sex Female 9:02 AM EST Gender Identity Not on file Sexual Orientation Not on file Plan of Treatment Health Maintenance Due Date Last Done Comments HPV Vaccines (1 - 3-dose series) 2013 DTaP,Tdap,and Td Vaccines (1 - Tdap) 2017 Hepatitis B Vaccines (1 of 3 - 19+ 3-dose series) 2017 Cervical Cancer Screening: P ap Smear 04/26/2019 Depression Screening 01/11/2022 HIV Screening 01/11/2022 Hepatitis C Screening 01/11/2022 Social Influencers of Health Screening 01/11/2022 COVID-19 Vaccine (2023-2 5 season) 2023 Influenza Vaccine (#1) 2023 HIB Vaccines Aged Out No longer eligi ble based on patient's age to complete this topic Hepatitis A Vaccines Aged Out No long er eligible based on patient's age to complete this topic IPV Vaccines Aged Out No longer eligi ble based on patient's age to complete this topic MMR Vaccines Aged Out No longer eligi ble based on patient's age to complete this topic Meningococcal ACWY Vaccine Aged Out N o longer eligible based on patient's age to complete this topic Meningococcal B Vacine Aged Out No lo nger eligible based on patient's age to complete this topic Pneumococcal Vaccine: Pediat rics (0 to 5 Years) and At-Risk Patients (6 to 64 Years) Aged Out No longer eligible b ased on patient's age to complete this topic RSV Immunization Patients Un marisol 20 months Aged Out No longer eligible b ased on patient's age to complete this topic Varicella Vaccines Aged Out No longer eligible based on patient's age to complete this topic
--- OUTSIDE RECORDS SUMMARY | 2024-04-18 14:43 | XMS_ITS | Clinical Summary ---
Author Organization [facility] Address [address] [place] [address] Care Team Providers Care Assistant Women'S Rowing Coach Name Role Phone Unavailable Primary Care Provider Unavailabl e Source Comments PLEASE NOTE, if this patient is a minor, it may be UNLAWFUL to discuss sensitive information that is contained in these records (such as FAMILY PLANNING, MENTAL HEALTH or SUBSTANCE ABUSE) with the minor patient's parent or other person without the patient's specific authorization.[facility] Social History Tobacco Use Types Packs/Day Years Used Date Smoking Tobacco: Never Assessed Social Connections Answer Date Recorded Social Connections and Isolation 0 03/26/2021 Financial Resource Strain Answer Date R ecorded Financial Resource Strain 0 2021 Stress Answer Date Recorded Stress 0 03/26/2021 Physical Activity Answer Date Recorded Physical Activity 0 03/26/2021 Food Insecurity Answer Date Recorded Food 0 03/26/2021 Transportation Needs Answer Date Record ed Transportation 0 03/26/2021 Housing Stability Answer Date Recorded Housing 0 03/26/2021 Safety and Environment Answer Date Robert rded Safety 0 03/26/2021 Utilities Answer Date Recorded Utilities 0 03/26/2021 Employment Answer Date Recorded Employment 0 03/26/2021 Comments Unknown Sex and Gender Information Value Date Recorded Sex Assigned at Not on file Legal Sex Female 6:12 AM PST Gender Identity Not on file Sexual Orientation Not on file Plan of Treatment Not on file Insurance [place]
== END 2024-04-18 11:59 | disposition home or self-care (01) ==
LOC: HO.HOP 11:58
PROVIDERS: PCP Nurse Practitioner Family; Visit Provider Clinical Nurse Specialist Psychiatric/Mental Health
DX: R44.0 Auditory hallucinations (principal); F40.01 Agoraphobia with panic disorder; F43.10 Post-traumatic stress disorder, unspecified
CPT/HCPCS: 99214

== ENCOUNTER → 2024-04-26 20:30 | Outpatient (REF) | payer OTHER, SELFPAY | LOC: HO.SL 20:30 | PROVIDERS: PCP Nurse Practitioner Family; Visit Provider Nurse Practitioner Family | DX: R06.83 Snoring (principal); G47.19 Other hypersomnia; G47.9 Sleep disorder, unspecified | CPT/HCPCS: 95810 ==

== ENCOUNTER → 2024-04-26 22:07 | Outpatient (BNV) | payer OTHER, SELFPAY | PROVIDERS: PCP Nurse Practitioner Family; Visit Provider Psychiatry & Neurology Neurology | DX: R06.83 Snoring (principal) | CPT/HCPCS: 95810 ==

== ENCOUNTER → 2024-05-08 16:20 | Outpatient (BNVA) | payer OTHER, SELFPAY | PROVIDERS: PCP Nurse Practitioner Family; Visit Provider Clinical Nurse Specialist Psychiatric/Mental Health ==

== ENCOUNTER 2024-06-19 14:41 | Outpatient (AMB) | payer OTHER, SELFPAY ==
--- NOTE | 2024-06-19 13:07 | A.OFFPSYCH_ITS ---
Intake Intake Visit Reasons: f/u consultation Manager Medicare Marketing Required: No Allergies phenytoin Allergy (Intermediate, Verified 02/24/24 09:40) unknown Medication List - Last Reconciled 06/19/24 by Jennyfer Calhoun APRN clonazepam 2 mg PO DAILY PRN 30 days divalproex ER 1,500 mg (3 x 500 mg) PO DAILY 30 days escitalopram oxalate (Lexapro) 20 mg PO DAILY indomethacin 25 mg PO TID PRN 30 days levetiracetam 2,000 mg (2 x 1,000 mg) PO BID 30 days lorazepam (Ativan) 1 mg PO TID PRN magnesium oxide 400 mg PO BEDTIME 30 days multivitamin with folic acid 400 mcg (Daily-Rosalba (with folic acid)) 1 tab PO DAILY 30 days oxcarbazepine 600 mg (2 x 300 mg) PO BID 30 days propranolol 10 mg PO BID 30 days pyridoxine (vitamin B6) 100 mg (2 x 50 mg) PO BID 30 days risperidone (Risperdal) 2 mg (2 x 1 mg) PO BEDTIME rosuvastatin 5 mg PO DAILY 30 days HPI- Psychiatric Chief Complaint: f/u consultation HPI Narrative: Pt reports stable mood. Pt denies hearing voices. pt denies SI or HI. Pt reports one night of not taking medications so she could drink alcohol. she reports she drank 1.5 bottle of wine and some shots. She reports she had tremor after but not now. She reports she does not intend to continue drinking alcohol. Pt has resumed taking meds as prescribed. Pt states she is only taking 1mg of risperdal at bedtime. We discussed her resuming therapy with Pippa at [facility]. Pt says she doesn't see a reason to go back to therapy as she got no where. She then tells me at her last appt with pippa after two years she disclosed some trauma from her childhood (pt did not specify what) but then felt she said too much and never went back; this personal lines underwriter tried to normalize getting scared after disclosure but that she did nothing wrong and that therapy is the right place to talk about past traumas. Encouraged her to consider going back. Pt denies SI or HI Past Psychiatric History: IPLOC age 10 (pt not sure why) again at age 15 due to depression, and again 2022 summer after drinking excessively was in [facility] [place]. Has out patient therapy at [facility] in [place] with Pippa Lovelace. saw psychiatrist there but didnt feel heard. Outpt as child at [facility] (age 5-12 ) and [facility] (age 12-17) Subjective Subjective Subjective Medication Compliance: Yes Side effects from medications: No Review of Systems Medical Review of Systems: unchanged Mental Status Exam Mental Status Exam Patient Appearance: Well Grooomed and Appropriate Patient Orientation: Person, Place, Time and Situation Level of Consciousness: Awake Patient Behavior: Appropriate Mood Description: Anxious Affect Description: Anxious Patient Cognition Impaired: No Ability to Follow Directions: Good Speech Pattern: Clear and Stuttering Memory Description: Intact Hallucinations: None Delusions: Not Present Thought Process: Distracted Thought Content: positive for [place] Judgement: Fair Telehealth Telehealth Telehealth Platform: Other (please specify) ([email or web address]) Location of provider rendering services: practice address Location of patient: address on file Patient Identification confirmed using: Name, : Yes Telehealth method: video Patient verbally consented to treatment: Yes Patient verbally consented to billing insurance company: Yes Patient informed of any privacy concerns related to visit: Yes Minutes spent on Phone/Video with Pt.: 30 Assessment and Plan Assessment & Plan (1) Panic disorder with agoraphobia: Status: Acute Code(s): F40.01 - Agoraphobia with panic disorder (2) Post traumatic stress disorder (PTSD): Status: Acute Code(s): F43.10 - Post-traumatic stress disorder, unspecified Plan continue meds as per below Medications: Changed From risperidone (Risperdal) 2 mg (2 x 1 mg) PO BEDTIME 60 tabs 2RF To risperidone (Risperdal) 1 mg PO BEDTIME 90 tabs 1RF Refilled escitalopram oxalate (Lexapro) 20 mg PO DAILY 90 tabs 1RF lorazepam (Ativan) 1 mg PO TID PRN 90 tabs 2RF anxiety propranolol 10 mg PO BID 60 tabs 6RF 30 days Counseling and coordination of Care Pt. Self Management counseling: Maintenance-social rhythm, Mod caffeine/ETOH intake, Sleep hygiene, Behavior activation, General coping skills and Problem solving Medication management counseling: Effectiveness, Side effects, Dosing range, Duration, Drug interaction and Adherence Diagnosis and Prognosis Counseling: Accuracy of diagnosis, Prognosis over time, Impact of diagnosis on life functions, Impact of family relationship, Problematic behaviors secondary to diagnosis and Adequacy of current interventions Details: I spent 40 minutes reviewing the record, seeing the patient and documenting in the medical record. Counseling provided to the patient/caregiver as outlined below. Addressed patient/caregiver concerns regarding current medication regime including effective adherence. Addressed patient/caregiver concerns regarding diagnosis and prognosis including accuracy of diagnosis, prognosis over time, impact of diagnosis. Addressed patient/caregiver concerns regarding impact of recent stressors. 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 pt reports repeating 6th grade 3x 7th grade 2x 8th grade [employer] schooled, 9th grade at age 18 left school. Substance History: intermittent heavy alcohol use; hospitalized 2022 after episode of heavy alcohol use. now drinks 4 beer once a week Trauma History: seizure disorder has caused trauma; first seizure age 13 in ICU and then hospital in [place] 1 month. now fears seizure every day Coding Level of Care Code Tele Est Pt Level 4 (27964) Diagnoses Panic disorder with agoraphobia F40.01 Post traumatic stress disorder (PTSD) F43.10
--- OUTSIDE RECORDS SUMMARY | 2024-06-19 14:44 | XMS_ITS | Clinical Summary ---
Author Organization [facility] it Address [address] [place] [address] Care Team Providers Care Cytologist Name Role Phone Unavailable Primary Care Provider [...] Vaccine (2023-2 5 season) 2023 Influenza Vaccine (Season Ended) 2024 HIB Vaccines Aged Out No longer eligi [...] age to complete this topic Meningococcal B Vaccine Aged Out No l onger eligible based on patient's age to complete [...]
--- OUTSIDE RECORDS SUMMARY | 2024-06-19 14:44 | XMS_ITS | Clinical Summary ---
Author Organization [facility] Address [address] [place] [address] Care Team Providers Care Buildings And Grounds Superintendent Name Role Phone Unavailable Primary Care Provider [...] Plan of Treatment Not on file Insurance [place]
== END 2024-06-19 14:42 | disposition home or self-care (01) ==
LOC: HO.HOP 14:41
PROVIDERS: PCP Nurse Practitioner Family; Visit Provider Clinical Nurse Specialist Psychiatric/Mental Health
DX: F40.01 Agoraphobia with panic disorder (principal); F43.11 Post-traumatic stress disorder, acute
CPT/HCPCS: 99214

== ENCOUNTER → 2024-06-19 14:41 | Outpatient (BNVA) | payer OTHER, SELFPAY | PROVIDERS: PCP Nurse Practitioner Family; Visit Provider Clinical Nurse Specialist Psychiatric/Mental Health | DX: F40.01 Agoraphobia with panic disorder (principal); F43.10 Post-traumatic stress disorder, unspecified ==

== ENCOUNTER 2024-07-24 14:47 | Outpatient (AMB) | payer OTHER, SELFPAY ==
--- NOTE | 2024-07-24 13:17 | MHC.OFFVISPS ---
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: No Allergies phenytoin Allergy (Intermediate, Verified 02/24/24 09:40) unknown Medication List - Last Reconciled 07/24/24 by Jennyfer Calhoun APRN clonazepam 2 mg PO DAILY PRN 30 days divalproex ER 1,500 mg (3 x 500 mg) PO DAILY 30 days escitalopram oxalate (Lexapro) 20 mg PO DAILY indomethacin 25 mg PO TID PRN 30 days levetiracetam 2,000 mg (2 x 1,000 mg) PO BID 30 days lorazepam (Ativan) 1 mg PO TID PRN magnesium oxide 400 mg PO BEDTIME 30 days multivitamin with folic acid 400 mcg (Daily-Rosalba (with folic acid)) 1 tab PO DAILY 30 days oxcarbazepine 600 mg (2 x 300 mg) PO BID 30 days propranolol 10 mg PO BID 30 days pyridoxine (vitamin B6) 100 mg (2 x 50 mg) PO BID 30 days risperidone (Risperdal) 2 mg (2 x 1 mg) PO BEDTIME rosuvastatin 5 mg PO DAILY 30 days HPI- Psychiatric Chief Complaint: f/u consultation HPI Narrative: pt seen via telehealth for PTSD and panic and agoraphobia. Pt symptoms worsened. Pt reports hangover today from drinking vodka last night. She also reports meeting woman on line and meeting them at their places to have sex. 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 she reports she had intrusive thoughts of hurting the woman after they had sex. Pt reports she told the woman because she was scared and had no intention of acting on thoughts, and left. her firend picked her up and brought her home. Pt reports she hooked up with 5 women this months. She denies current SI or HI. She wants to know why she is like this. She says hooking up with people she meets online is impulsive and she isn't drinking when she does it. We discussed dx of Bipolar Disorder. She reports she suddenly feels angry at times. We discussed the fact that she needs to go back to therapy and see a psychiatrist at a clinic. She agrees and will call her previous therapist Belinda today. Past Psychiatric History: IPLOC age 10 (pt not sure why) again at age 15 due to depression, and again summer after drinking excessively was in [facility] near [place]. Has out patient therapy at [facility] in [place] with Belinda Lovelace. saw psychiatrist there but didnt feel heard. Outpt as child at [facility] (age 5-12 ) and [facility] (age 12-17) Subjective Subjective Subjective Medication Compliance: Yes Side effects from medications: No Review of Systems Medical Review of Systems: unchanged Mental Status Exam Mental Status Exam Patient Appearance: Appropriate Patient Orientation: Person, Place, Time and Situation Level of Consciousness: Awake and Appropriate Patient Behavior: Appropriate and Cooperative Mood Description: Withdrawn, Depressed and Anxious Affect Description: Withdrawn and Anxious Patient Cognition Impaired: No Ability to Follow Directions: Fair Speech Pattern: Clear Memory Description: Intact Hallucinations: Auditory Delusions: Not Present Thought Process: Intact Thought Content: positive for Intact Judgement: Fair Telehealth Telehealth Telehealth Platform: Other (please specify) ([employer]) Location of provider rendering services: practice address Location of patient: address on file Patient Identification confirmed using: Name, : Yes Telehealth method: video Patient verbally consented to treatment: Yes Patient verbally consented to billing insurance company: Yes Patient informed of any privacy concerns related to visit: Yes Minutes spent on Phone/Video with Pt.: 30 Assessment and Plan Assessment & Plan (1) Panic disorder with agoraphobia: Status: Acute Code(s): F40.01 - Agoraphobia with panic disorder (2) Post traumatic stress disorder (PTSD): Status: Acute Code(s): F43.10 - Post-traumatic stress disorder, unspecified (3) Bipolar II disorder with atypical features: Status: Acute Code(s): F31.81 - Bipolar II disorder Plan STOP Lexapro Increase risperdal to 1mg in am and 2mg at bedtime continue ativan and propranolol reconnect with therapist consider hospitalization if no improvement Medications: Changed From risperidone 2 mg (2 x 1 mg) PO BEDTIME 180 tabs 1RF To risperidone (Risperdal) 1 mg orally Take one tablet in morning and two tablets at bedtime; 270 tabs 1RF Discontinued escitalopram oxalate Discontinued Reason: Doctor's Order 20 mg PO DAILY 90 tabs 1RF Counseling and coordination of Care Pt. Self Management counseling: Maintenance-social rhythm, Med illness tx adherence, Mod caffeine/ETOH intake, Sleep hygiene, General coping skills and Problem solving Medication management counseling: Effectiveness, Side effects, Dosing range, Duration, Drug interaction and Adherence Diagnosis and Prognosis Counseling: Accuracy of diagnosis, Prognosis over time, Impact of diagnosis on life functions, Impact of family relationship, Problematic behaviors secondary to diagnosis and Adequacy of current interventions Details: I spent 50 minutes reviewing the record, seeing the patient and documenting in the medical record. Counseling provided to the patient/caregiver as outlined below. Addressed patient/caregiver concerns regarding current medication regime including effective adherence. Addressed patient/caregiver concerns regarding diagnosis and prognosis including accuracy of diagnosis, prognosis over time, impact of diagnosis. Addressed patient/caregiver concerns regarding impact of recent stressors. 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 pt reports repeating 6th grade 3x 7th grade 2x 8th grade hoe schooled, 9th grade at age 18 left school. Substance History: intermittent heavy alcohol use; hospitalized 2022 after episode of heavy alcohol use. now drinks 4 beer once a week Trauma History: seizure disorder has caused trauma; first seizure age 13 in ICU and then hospital in [place] 1 month. now fears seizure every day Coding Level of Care Code Tele Est Pt Level 5 (42384) Diagnoses Panic disorder with agoraphobia F40.01 Post traumatic stress disorder (PTSD) F43.10 Bipolar II disorder with atypical features F31.81
--- OUTSIDE RECORDS SUMMARY | 2024-07-24 16:33 | XMS_ITS | Clinical Summary ---
Author Organization [facility] Address [address] [place] [address] Care Team Providers Care Buzzle Buffer Name Role Phone Unavailable Primary Care Provider [...]
== END 2024-07-24 14:48 | disposition home or self-care (01) ==
LOC: HO.HOP 14:47
PROVIDERS: Visit Provider Clinical Nurse Specialist Psychiatric/Mental Health
DX: F31.81 Bipolar II disorder (principal); F40.01 Agoraphobia with panic disorder; F43.10 Post-traumatic stress disorder, unspecified
CPT/HCPCS: 99215

== ENCOUNTER → 2024-07-24 14:47 | Outpatient (BNVA) | payer OTHER, SELFPAY | PROVIDERS: Visit Provider Clinical Nurse Specialist Psychiatric/Mental Health | DX: F40.01 Agoraphobia with panic disorder (principal); F43.10 Post-traumatic stress disorder, unspecified ==

== ENCOUNTER 2024-08-02 13:38 | Outpatient (REF) | payer OTHER, SELFPAY ==
--- OUTSIDE RECORDS SUMMARY | 2024-08-02 16:09 | XMS_ITS | Clinical Summary ---
Author Organization [facility] Address [address] [place] [address] Care Team Providers Care Industrial Waste Treatment Technician Name Role Phone Unavailable Primary Care Provider [...] Plan of Treatment Not on file Insurance [place]
[2024-08-02 18:06] LABS: MANUAL DIFF FLAG NO
[2024-08-02 18:26] LABS: Alanine Aminotransferase 49 U/L (0-31); Albumin Level 4.2 g/dL (3.5-5.0); Alkaline Phosphatase 48 U/L (39-117); Anion Gap 14 (12-20); Aspartate Amino Transferase 34 U/L (5-31); Bilirubin Total 0.2 mg/dL (0.0-1.0); Blood Urea Nitrogen 7 mg/dL (9-16); Calcium 9.2 mg/dL (8.4-10.2); Carbon Dioxide 23 mmol/L (22-29); Chloride 104 mmol/L (96-108); Estimated Glomerular Filt Rate > 60; Glucose Random 95 mg/dL (60-115); Potassium 4.1 mmol/L (3.3-5.1); Sodium 137 mmol/L (135-145); Total Protein 7.9 g/dL (6.5-8.0)
[2024-08-02 18:36] LABS: Valproate 69.5 mcg/mL (50.0-100.0)
[2024-08-02 18:42] LABS: Basophils Percent Auto 0.2 % (0-2); Eosinophils Percent Auto 0.3 % (0-4); Hematocrit 39.7 % (37.0-47.0); Hemoglobin 13.6 g/dl (12.0-16.0); Imm Gran Abs Auto 0.03 X10*3/uL (0.00-0.03); Imm Gran Pct Auto 0.5 % (0.0-0.4); Lymphocytes Absolute Auto 2.6 X10*3/uL (1.2-4.9); Lymphocytes Percent Auto 41.1 % (20-40); Mean Corpuscular HGB Conc 34.3 g/dl (31.0-35.0); Mean Corpuscular Hemoglobin 31.9 pg (27.0-33.0); Mean Corpuscular Volume 93.2 fL (80.0-98.0); Mean Platelet Volume 10.1 fL (9.4-12.3); Monocytes Absolute Auto 0.6 X10*3/uL (0.1-1.2); Monocytes Percent Auto 9.6 % (2-11); Neutrophils Percent Auto 48.3 % (45-73); Platelet Count 323 X10*3/uL (160-400); Red Blood Count 4.26 X10*6/uL (4.20-5.50); Red Cell Distribution Width 12.2 % (11.0-16.0); White Blood Count 6.3 X10*3/uL (4.8-10.8)
== END 2024-08-02 13:39 | disposition home or self-care (01) ==
LOC: HO.HKASLDS 13:38
PROVIDERS: Visit Provider Nurse Practitioner Family
DX: F40.01 Agoraphobia with panic disorder (principal); R44.0 Auditory hallucinations; G25.9 Extrapyramidal and movement disorder, unspecified; E66.01 Morbid (severe) obesity due to excess calories; G40.909 Epilepsy, unspecified, not intractable, without status epilepticus
CPT/HCPCS: 36415; 80053; 80164; 80177; 83519; 85025; 86052; 86255; 86341; 86596

== ENCOUNTER 2024-08-12 16:27 | Outpatient (REF) | payer OTHER, SELFPAY | END 2024-08-12 16:28 | disposition home or self-care (01) | LOC: HO.MRI 16:27 | PROVIDERS: Visit Provider Nurse Practitioner Family | DX: Z13.89 Encounter for screening for other disorder (principal) ==

== ENCOUNTER 2024-08-14 13:32 | Outpatient (AMB) | payer OTHER, SELFPAY ==
--- NOTE | 2024-08-14 13:08 | MHC.OFFVISPS ---
Intake Intake Visit Reasons: f/u consultation Prepress Technician Required: No Allergies phenytoin Allergy (Intermediate, Verified 08/23/24 15:21) unknown Medication List - Last Reconciled 08/14/24 by Jennyfer Calhoun APRN clonazepam 2 mg PO DAILY PRN 30 days divalproex ER 1,500 mg (3 x 500 mg) PO DAILY 30 days indomethacin 25 mg PO TID PRN 30 days levetiracetam 2,000 mg (2 x 1,000 mg) PO BID 30 days lorazepam (Ativan) 1 mg PO TID PRN magnesium oxide 400 mg PO BEDTIME 30 days multivitamin with folic acid 400 mcg (Daily-Rosalba (with folic acid)) 1 tab PO DAILY 30 days oxcarbazepine 600 mg (2 x 300 mg) PO BID 30 days propranolol 10 mg PO BID 30 days pyridoxine (vitamin B6) 100 mg (2 x 50 mg) PO BID 30 days risperidone (Risperdal) 1 mg orally Take one tablet in morning and two tablets at bedtime; rosuvastatin 5 mg PO DAILY 30 days HPI- Psychiatric Chief Complaint: f/u consultation HPI Narrative: pt reports her symptoms are improved with current meds; she is less anxious; she denies hearing voices; she is less impulsive; she has re-connected with her therapist Belinda Oakley. she reports she will be able to see a psychiatrist there. no SI or HI. We discussed termination issues and she will follow up with neurology and new psychiatrist in community Past Psychiatric History: IPLOC age 10 (pt not sure why) again at age 15 due to depression, and again summer after drinking excessively was in [facility] near [place]. Has out patient therapy at [facility] in [place] with Belinda Lovelace. saw psychiatrist there but didnt feel heard. Outpt as child at [facility] (age 5-12 ) and [facility] (age 12-17) Subjective Subjective Subjective Medication Compliance: Yes Side effects from medications: No Review of Systems Medical Review of Systems: unchanged Mental Status Exam Mental Status Exam Patient Appearance: Appropriate Patient Orientation: Person, Place, Time and Situation Level of Consciousness: Awake and Appropriate Patient Behavior: Appropriate and Cooperative Mood Description: Withdrawn and Anxious Affect Description: Withdrawn and Anxious Patient Cognition Impaired: No Ability to Follow Directions: Fair Speech Pattern: Clear Memory Description: Intact Hallucinations: None Delusions: Not Present Thought Process: Intact Thought Content: positive for Intact Judgement: Fair Assessment and Plan Assessment & Plan (1) Post traumatic stress disorder (PTSD): Status: Acute Code(s): F43.10 - Post-traumatic stress disorder, unspecified (2) Panic disorder with agoraphobia: Status: Acute Code(s): F40.01 - Agoraphobia with panic disorder (3) Verbal auditory hallucinations: Status: Acute Code(s): R44.0 - Auditory hallucinations (4) Bipolar II disorder with atypical features: Status: Acute Code(s): F31.81 - Bipolar II disorder Medications: Changed From risperidone 1 mg orally Take one tablet in morning and two tablets at bedtime; 270 tabs 1RF To risperidone (Risperdal) 1 mg orally Take one tablet in morning and two tablets at bedtime; 270 tabs 1RF Refilled lorazepam (Ativan) 1 mg PO TID PRN 90 tabs 2RF anxiety propranolol 10 mg PO BID 60 tabs 6RF for tremor 30 days Counseling and coordination of Care Pt. Self Management counseling: Maintenance-social rhythm, Mod caffeine/ETOH intake, Nutrition education and improvement, Sleep hygiene, Behavior activation, Cognitive restructuring, General coping skills and Problem solving Medication management counseling: Effectiveness, Side effects, Dosing range, Duration, Drug interaction and Adherence Diagnosis and Prognosis Counseling: Accuracy of diagnosis, Prognosis over time, Impact of diagnosis on life functions, Impact of family relationship, Problematic behaviors secondary to diagnosis and Adequacy of current interventions Details: I spent 30 minutes reviewing the record, seeing the patient and documenting in the medical record. Counseling provided to the patient/caregiver as outlined below. Addressed patient/caregiver concerns regarding current medication regime including effective adherence. Addressed patient/caregiver concerns regarding diagnosis and prognosis including accuracy of diagnosis, prognosis over time, impact of diagnosis. Addressed patient/caregiver concerns regarding impact of recent stressors. 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 pt reports repeating 6th grade 3x 7th grade 2x 8th grade hoe schooled, 9th grade at age 18 left school. Substance History: intermittent heavy alcohol use; hospitalized 2022 after episode of heavy alcohol use. now drinks 4 beer once a week Trauma History: seizure disorder has caused trauma; first seizure age 13 in ICU and then hospital in [place] 1 month. now fears seizure every day Coding Level of Care Code Est Pt Level 4 (72384) Diagnoses Post traumatic stress disorder (PTSD) F43.10 Panic disorder with agoraphobia F40.01 Verbal auditory hallucinations R44.0 Bipolar II disorder with atypical features F31.81
--- OUTSIDE RECORDS SUMMARY | 2024-08-14 13:58 | XMS_ITS | Clinical Summary ---
Author Organization [facility] Address [address] [place] [address] Care Team Providers Care Account Strategist Name Role Phone Unavailable Primary Care Provider [...] Plan of Treatment Not on file Insurance [place] MED[place]
--- OUTSIDE RECORDS SUMMARY | 2024-08-14 13:58 | XMS_ITS | Clinical Summary ---
Author Organization [facility] Address [address] [place] [address] Phone Care Team Providers Care Manager Career Name Role Phone Physician, No Pcp Primary Care Provider Unavaila ble Allergies Active Allergy Reactions Criticality Noted Date Comments Phenytoin Sodium Extended 07/06/2024 Medications albuterol HFA (PROAIR HFA ; PROVENTIL HFA ; VENTOLIN HFA) 90 mcg/actuation inhalerIndicati ons:Acute cough Inhale 1-2 puffs by mouth every 6 (six) hours if needed for wheezing or shortness of breath. 1 each Active Encounters Date Type Department Care Team Description 07/07/2024 12:22 AM EDT - 07/07/2024 1:43 AM EDT Emergency [facility] Emergency [address] [place] [address] Acute cough (Primary Dx) Discharge Disposition: Home or Self Care from Last 3 Months Medical History Medical History Date Comments Epilepsy (CMS/HCC V24, CMS/HCC V28) Social History Tobacco Use Types Packs/Day Years Used Date Smoking Tobacco: Former Cigarettes Smokeless Tobacco: Current Tobacco Cessation:Ready to Q uit: Not Asked; Counseling Given: Not Answered Alcohol Use Standard Drinks/Week Comments Never 0 (1 standard drink = 0.6 oz pur e alcohol) Comments Unknown Sex and Gender Information Value Date Recorded Sex Assigned at Not on file Legal Sex Female 9:02 AM EST Gender Identity Not on file Sexual Orientation Not on file Obstetrics History Last Filed Vital Signs Vital Sign Reading Time Taken Comments Blood Pressure 121/81 07/06/2024 10:24 PM EDT Pulse 96 07/06/2024 10:24 PM EDT Temperature 36.1 C (97 F) 07/06/2024 10:24 PM EDT Respiratory Rate 18 07/06/2024 10:24 PM EDT Oxygen Saturation 98% 07/06/2024 10:24 PM EDT Inhaled Oxygen Concentration - - Weight 120 kg (265 lb) 07/06/2024 10:24 PM EDT Height 160 cm (5' 3 ) 07/06/2024 10:24 PM EDT Body Mass Index 46.94 07/06/2024 10:24 PM EDT Plan of Treatment Health Maintenance Due Date Last Done Comments HPV Vaccines (1 - 3-dose series) 2013 Hepatitis B Vaccines (1 of 3 - 19+ 3-dose series) 2017 Cervical Cancer Screening: P ap Smear 04/26/2019 Cholesterol Screening (Lipid Panel) 01/11/2022 Depression Screening 01/11/2022 HIV Screening 01/11/2022 Hepatitis C Screening 01/11/2022 Social Influencers of Health Screening 01/11/2022 COVID-19 Vaccine (4 - 2023-2 5 season) 2023 04/24/2021, 09/23/2020, 08/26/2020 Influenza Vaccine (#1) 2024 DTaP,Tdap,and Td Vaccines (2 - Td or Tdap) 03/15/2026 03/15/2016 HIB Vaccines Aged Out No longer eligi [...] age to complete this topic Pneumococcal Vaccine: Pediatrics (0 to 5 Years) and At-Risk Patients (6 to 49 Years) Aged Out No longer eligible b ased on patient's age to complete this topic RSV Immunization Patients Under 20 months Aged Out No longer eligible b ased on patient's age to complete this topic Varicella Vaccines Aged Out No longer eligible based on patient's age to complete this topic Procedures Procedure Name Priority Date/Time Associated Diagnosis Comments [id number], RSV, FLU A AND B QUALITATIVE RT-PCR, INTERNAL LAB STAT 07/06/2024 10:27 PM EDT from Last 3 Months Results * [id number], RSV, Influenza A and B qualitative RT-PCR (07/06/2024 10:27 PM EDT) Influenza A PCR Not Detected Not Detected LAB MICROBIOLOGY METHOD 07/06/2024 11:36 PM EDT [facility] Influenza B PCR Not Detected Not Detected LAB MICROBIOLOGY METHOD 07/06/2024 11:36 PM EDT [facility] RSV PCR Not Detected Not Detected LAB MICROBIOLOGY METHOD 07/06/2024 11:36 PM EDT [facility] SARS COV-2 Not Detected Not Detected LAB MICROBIOLOGY METHOD 07/06/2024 11:36 PM EDT [facility] Swab Both anterior nares / Unknown Non-blood Collection / Unknown 07/06/2024 10:27 PM EDT 07/06/2024 10:37 PM EDT Narrative [facility] - 07/06/2024 11:36 PM EDT Disclaimer: Testing was performed using the [employer] GeneXpert Xpress SARS-CoV-2 _Flu_RSV PLUS PCR assay. The manner in which this information is used to guide patient care is the responsibility of the healthcare provider. Results should be correlated with the clinical history, epidemiological data, and other data available to the clinician evaluating the patient. Negative results do not preclude infection. This test has been authorized by the FDA under an Emergency Use Authorization (EUA). This test is only authorized for the duration of time the declaration that circumstances exist justifying the authorization of the emergency use of in vitro diagnostic tests for detection of SARS-CoV-2 virus and/or diagnosis of COVID-19 infection under section 564 (b) (1) of the Act, 21 U.S.C 360bbb-3 (b) (1), unless the authorization is terminated or revoked sooner. Reference Range: Not Detected Fact sheet for Healthcare providers can be found at https://www.fda.gov/media/886044/download. Fact sheet for Healthcare patients can be found at https://www.fda.gov/media/114897/download. us Jamil Arriaga MD LAB MICROBIOLOGY - GENERAL ROGER GUEVARA Final Result [facility] H[facility] LAB [address] [place] [address], from Last 3 Months Insurance [employer] [place] MEDICAID ADVANTAGE Care Teams Manager Career Relationship Specialty Start Date End Date Physician, No Pcp PCP - General 07/07/24
== END 2024-08-14 13:33 | disposition home or self-care (01) ==
LOC: HO.HOP 13:32
PROVIDERS: Visit Provider Clinical Nurse Specialist Psychiatric/Mental Health
DX: F43.10 Post-traumatic stress disorder, unspecified (principal); F40.01 Agoraphobia with panic disorder; R44.0 Auditory hallucinations; F31.81 Bipolar II disorder
CPT/HCPCS: 99214

== ENCOUNTER → 2024-08-14 13:32 | Outpatient (BNVA) | payer OTHER, SELFPAY | PROVIDERS: Visit Provider Clinical Nurse Specialist Psychiatric/Mental Health | DX: F40.01 Agoraphobia with panic disorder (principal); F43.10 Post-traumatic stress disorder, unspecified; R44.0 Auditory hallucinations; F31.81 Bipolar II disorder; Z79.899 Other long term (current) drug therapy | CPT/HCPCS: 99212 ==

== ENCOUNTER 2024-08-23 15:19 | Outpatient (AMB) | payer OTHER, SELFPAY ==
[2024-08-23 15:19] VITALS: BP 134/82; PULSE 127; O2SAT 99; BMI 50.0
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
--- OUTSIDE RECORDS SUMMARY | 2024-08-23 15:36 | XMS_ITS | Clinical Summary ---
Author Organization [facility] Address [address] [place] [address] Care Team Providers Care Certified Medical Transcriptionist Name Role Phone Unavailable Primary Care Provider [...] Plan of Treatment Not on file Insurance [place]
--- OUTSIDE RECORDS SUMMARY | 2024-08-23 15:36 | XMS_ITS | Clinical Summary ---
Author Organization [facility] Address [address] [place] [address] Phone Care Team Providers Care Financial Analysis Consultant Name Role Phone Physician, No Pcp Primary [...] EDT - 07/07/2024 1:43 AM EDT Emergency [facility] Emergency [address] [place] [address] Acute cough (Primary Dx) Discharge [...] Procedure Name Priority Date/Time Associated Diagnosis Comments [id number], RSV, FLU A AND B QUALITATIVE RT-PCR, INTERNAL LAB STAT 07/06/2024 10:27 PM EDT from Last 3 Months Results * [id number], RSV, Influenza A and B qualitative RT-PCR (07/06/2024 10:27 PM EDT) Influenza A PCR Not Detected Not Detected LAB MICROBIOLOGY METHOD 07/06/2024 11:36 PM EDT [facility] Influenza B PCR Not Detected Not Detected LAB MICROBIOLOGY METHOD 07/06/2024 11:36 PM EDT [facility] RSV PCR Not Detected Not Detected LAB MICROBIOLOGY METHOD 07/06/2024 11:36 PM EDT [facility] SARS COV-2 Not Detected Not Detected LAB MICROBIOLOGY METHOD 07/06/2024 11:36 PM EDT [facility] Swab Both anterior nares / Unknown Non-blood Collection / Unknown 07/06/2024 10:27 PM EDT 07/06/2024 10:37 PM EDT Narrative [facility] - 07/06/2024 11:36 PM EDT Disclaimer: Testing was performed using the [employer] GeneXpert Xpress SARS-CoV-2 _Flu_RSV PLUS PCR assay. [...] for Healthcare providers can be found at https://www.fda.gov/media/599648/download. Fact sheet for Healthcare patients can be found at https://www.fda.gov/media/429601/download. us Jamil Arriaga MD LAB MICROBIOLOGY - GENERAL ROGER GUEVARA Final Result [facility] [address] [place] [address], from Last 3 Months Insurance [employer] [place] MEDICAID ADVANTAGE Care Teams Financial Analysis Consultant Relationship Specialty Start Date End Date Physician, No Pcp PCP - General 07/07/24
== END 2024-08-23 16:23 | disposition home or self-care (01) ==
LOC: HO.HSMS 15:20
PROVIDERS: PCP Nurse Practitioner Family; Visit Provider Nurse Practitioner Family
DX: G40.409 Other generalized epilepsy and epileptic syndromes, not intractable, without status epilepticus (principal); R25.1 Tremor, unspecified; R47.9 Unspecified speech disturbances; F39 Unspecified mood [affective] disorder; G44.85 Primary stabbing headache; R06.83 Snoring; G47.19 Other hypersomnia; G47.9 Sleep disorder, unspecified; E66.01 Morbid (severe) obesity due to excess calories
CPT/HCPCS: 99214; G2211

== ENCOUNTER → 2024-08-23 15:19 | Outpatient (BNVA) | payer OTHER, SELFPAY | PROVIDERS: PCP Nurse Practitioner Family; Visit Provider Nurse Practitioner Family | DX: G40.409 Other generalized epilepsy and epileptic syndromes, not intractable, without status epilepticus (principal); R25.1 Tremor, unspecified; F39 Unspecified mood [affective] disorder; R47.9 Unspecified speech disturbances; E66.01 Morbid (severe) obesity due to excess calories; E78.5 Hyperlipidemia, unspecified; R44.0 Auditory hallucinations; R46.89 Other symptoms and signs involving appearance and behavior; G47.19 Other hypersomnia; G47.9 Sleep disorder, unspecified; Z68.43 Body mass index [BMI] 50.0-59.9, adult | CPT/HCPCS: 99212 ==

== ENCOUNTER 2024-09-11 13:14 | Outpatient (AMB) | payer OTHER, SELFPAY ==
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
--- OUTSIDE RECORDS SUMMARY | 2024-09-11 13:31 | XMS_ITS | Clinical Summary ---
Author Organization [facility] Address [address] [place] [address] Care Team Providers Care Etl Application Developer Name Role Phone Unavailable Primary Care Provider [...] Plan of Treatment Not on file Insurance [place] MED[place]ID D[place]
--- OUTSIDE RECORDS SUMMARY | 2024-09-11 13:32 | XMS_ITS | Clinical Summary ---
Author Organization [facility] Address [address] [place] [address] Phone Care Team Providers Care Manager Global Name Role Phone Physician, No Pcp Primary [...] EDT - 07/07/2024 1:43 AM EDT Emergency [facility] Emergency [address] [place] [address] Acute cough (Primary Dx) Discharge [...] Smear 04/26/2019 Cholesterol Screening (Lipid Panel) 01/11/2022 HIV Screening 01/11/2022 Hepatitis C Screening 01/11/2022 Social Influencers of Health Screening 01/11/2022 COVID-19 Vaccine (4 - 2023-2 5 season) 2023 04/24/2021, 09/23/2020, 08/26/2020 Depression Screening 02/09/2024 Influenza Vaccine (#1) 2024 DTaP,Tdap,and Td Vaccines [...] Procedure Name Priority Date/Time Associated Diagnosis Comments [id number], RSV, FLU A AND B QUALITATIVE RT-PCR, INTERNAL LAB STAT 07/06/2024 10:27 PM EDT from Last 3 Months Results * [id number], RSV, Influenza A and B qualitative RT-PCR (07/06/2024 10:27 PM EDT) Influenza A PCR Not Detected Not Detected LAB MICROBIOLOGY METHOD 07/06/2024 11:36 PM EDT [facility] Influenza B PCR Not Detected Not Detected LAB MICROBIOLOGY METHOD 07/06/2024 11:36 PM EDT [facility] RSV PCR Not Detected Not Detected LAB MICROBIOLOGY METHOD 07/06/2024 11:36 PM EDT [facility] SARS COV-2 Not Detected Not Detected LAB MICROBIOLOGY METHOD 07/06/2024 11:36 PM EDT [facility] Swab Both anterior nares / Unknown Non-blood Collection / Unknown 07/06/2024 10:27 PM EDT 07/06/2024 10:37 PM EDT Narrative [facility] - 07/06/2024 11:36 PM EDT Disclaimer: Testing was performed using the [employer] GeneXpert Xpress SARS-CoV-2 _Flu_RSV PLUS PCR assay. [...] for Healthcare providers can be found at https://www.fda.gov/media/454422/download. Fact sheet for Healthcare patients can be found at https://www.fda.gov/media/770357/download. us Jamil Arriaga MD LAB MICROBIOLOGY - GENERAL ROGER GUEVARA Final Result [facility] [address] [place] [address], from Last 3 Months Insurance [employer] Care Teams Manager Global Relationship Specialty Start Date End Date Physician, No Pcp PCP - General 07/07/24
== END 2024-09-11 13:14 | disposition home or self-care (01) ==
LOC: HO.HOP 13:14
PROVIDERS: Visit Provider Clinical Nurse Specialist Psychiatric/Mental Health
DX: F43.10 Post-traumatic stress disorder, unspecified (principal); F31.81 Bipolar II disorder; F40.01 Agoraphobia with panic disorder
CPT/HCPCS: 99214

== ENCOUNTER → 2024-09-11 13:14 | Outpatient (BNVA) | payer OTHER, SELFPAY | PROVIDERS: Visit Provider Clinical Nurse Specialist Psychiatric/Mental Health | DX: F31.81 Bipolar II disorder (principal); F43.10 Post-traumatic stress disorder, unspecified; F40.01 Agoraphobia with panic disorder | CPT/HCPCS: 99212 ==

== ENCOUNTER 2024-10-17 15:07 | Inpatient (IN) | payer OTHER, SELFPAY ==
--- NOTE | 2024-10-17 15:17 | ED_ITS ---
HPI - General Adult General Chief complaint: Psychiatric Symptoms Stated complaint: SI WITH PLAN Time Seen by Provider: 10/17/24 15:09 Source: patient Mode of arrival: ambulatory Limitations: no limitations History of Present Illness ED Provider: ALEX ARMENTA PA-C HPI narrative: 24-year-old female with pmhx significant for bipolar 2 disorder, panic disorder, PTSD, and epilepsy presents to the ED via EMS for suicidal ideation. Patient states that she verbalized that she wanted to harm herself to staff at her day program with a plan to overdose on all of her home medications. Denies HI. Admits to occasional auditory hallucinations however they are not demanding. Denies VH/TH. Denies illicit substance use or EtOH consumption. Denies any physical complaints at present. Related Data Previous Rx's ?Medication ?Instructions ?Recorded magnesium oxide 400 mg (241.3 mg 400 mg PO BEDTIME 30 days #30 tabs 02/24/24 magnesium) tablet divalproex 500 mg tablet,extended 1,500 mg (3 x 500 mg ) PO DAILY 30 08/23/24 release 24 hr days #90 tabs levetiracetam 1,000 mg tablet 2,000 mg (2 x 1,000 mg) PO BID 30 08/23/24 days #120 tabs oxcarbazepine 300 mg tablet 600 mg (2 x 300 mg) PO BID 30 days 08/23/24 #120 tabs propranolol 10 mg tablet 10 mg PO BID for tremor 30 d ays 08/23/24 #60 tabs pyridoxine (vitamin B6) 50 mg 100 mg (2 x 50 mg) PO BI D 30 days 08/23/24 tablet #120 tabs rosuvastatin 5 mg tablet 5 mg PO DAILY 30 days #30 ta bs 08/23/24 risperidone 1 mg tablet (Risperdal) 1 mg PO .COMPLEX # 270 tabs 09/11/24 multivitamin with folic acid 400 1 tab PO DAILY 30 day s #30 tabs 10/03/24 mcg tablet (Daily-Rosalba (with folic acid)) Allergies Allergy/AdvReac Type Severity Reaction Status Date / Time phenytoin Allergy Intermediate unknown Verified 10/17/24 15:26 Review of Systems 2 Review of Systems: Yes all other systems are reviewed and are negative PMFSH Past Medical History Attestation statement: The following information was validated with the patient. Source: old records reviewed and nursing notes reviewed Family History Family History Father Heart disease Mother Cancer Social History Social History Unable to assess alcohol history related to: Unknown Alcohol intake: current Alcohol intake frequency: a few times a month Alcohol type: beer Patient Tobacco Use Status: Never used Tobacco Use of substances other than those prescribed or required for medical reasons: Unknown Advance Directives: No Advance Directives Information Provided: No Do you have a plan to hurt others: No Plan Physical Exam ED Vital Signs: Vital Signs - 24 hr 10/17/24 15:36 10/17/24 22:36 10/17/24 22:43 Temperature 97.3 F 97.7 F Pulse Rate 95 89 89 Respiratory Rate 16 18 Blood Pressure 122/68 145/89 H 145/89 H Pulse Oximetry 97 97 Oxygen Delivery Method Room Air Room Air 10/18/24 06:20 10/18/24 08:17 Temperature 98.5 F Pulse Rate 92 92 Respiratory Rate 20 Blood Pressure 144/76 H 144/76 H Pulse Oximetry 96 Oxygen Delivery Method Room Air BMI result Body Mass Index 34.3 Vital signs stable General: Well appearing, in no acute distress. Skin: Warm, dry, intact. No rashes or lesions. Head: Normocephalic, atraumatic. EENT: Hearing is intact b/l. Conjunctiva clear. PERRLA. EOM intact. Moist mucous membranes.? Cardiac: Chest wall symmetric. RRR Lungs: Normal respiratory effort without accessory muscle use. CTA bilaterally Abdomen: Soft, non-tender, non-distended. No rebound tenderness or guarding. Positive BS x4. Ext: Upper and lower extremities atraumatic, without tenderness, deformity, swelling or erythema Neuro: AOx3. Normal speech. CN 2-12 grossly intact. Ambulating with steady gait. Course Course Course Narrative: CBC without leukocytosis or left shift. H&H stable. Chemistry without acute electrolyte abnormality requiring intervention. No RICARDO. Liver function at baseline. Urine without infection. Urine negative. Urine toxicology negative. Ethanol, acetaminophen and salicylates undetectable. > at this time, patient is medically cleared for care team consultation. Placed in physician observation pending disposition. Reevaluation(s) Reevaluation #1: Time: 06:21 Date: 10/18/24 Provider: Sae Bethea MD Patient in physician observation for psychiatric evaluation.? No acute events reported overnight. No current complaints. VS stable.? Patient is in bed search status/pending CARE team evaluation. Will continue to monitor. Reevaluation #2: 10/18/2024 13:20 patient will be admitted to inpatient psych, this will end the ED observation status Time: 13:20 Medications Administered Generic Name Dose Route Start Last Admin Trade Name Freq PRN Reason Stop Dose Admin Atorvastatin Calcium 20 mg 10/18/24 09:00 10/18/24 08:17 Atorvastatin Calcium 20 Mg Tablet PO 20 mg DAILY CLARK Administration Divalproex Sodium 1,500 mg 10/18/24 09:00 10/18/24 08:17 Divalproex Sodium Er 500 Mg Tab.Er.24h PO 1,500 mg DAILY CLARK Administration Levetiracetam 2,000 mg 10/17/24 21:45 10/18/24 08:17 Levetiracetam 1,000 Mg Tablet PO 2,000 mg BID CLARK Administration Magnesium Oxide 400 mg 10/17/24 21:45 10/17/24 22:35 Magnesium Oxide 400 Mg Tablet PO 400 mg BEDTIME CLARK Administration Multivitamins/Vitamin C 1 tab 10/18/24 09:00 10/18/24 08:17 Multivitamin Tablet PO 1 tab DAILY CLARK Administration Oxcarbazepine 600 mg 10/17/24 21:45 10/18/24 08:18 Oxcarbazepine 300 Mg Tablet PO 600 mg BID CLARK Administration Propranolol HCl 10 mg 10/17/24 21:45 10/18/24 08:17 Propranolol Hcl 10 Mg Tablet PO 10 mg BID CLARK Administration Protocol Pyridoxine HCl 100 mg 10/17/24 21:45 10/18/24 08:18 Pyridoxine Hcl (Vitamin B6) 50 Mg Tablet PO 100 mg BID CLARK Administration Risperidone 1 mg 10/18/24 09:00 10/18/24 08:18 Risperidone 1 Mg Tablet PO 1 mg DAILY CLARK Administration Medical Decision Making Medical Decision Making MDM Narrative: 24-year-old female with pmhx significant for bipolar 2 disorder, panic disorder, PTSD, and epilepsy presents to the ED via EMS for suicidal ideation. vital signs stable. she is generally well appearing and in NAD. Differential diagnosis includes anemia, electrolyte abnormality, mood disorder, anxiety, depression, SI, polysubstance abuse Presentation not consistent with acute organic causes to include delirium, dementia or drug induced disorders (acute ingestions or withdrawal; no evidence of toxidrome).? Given the H&P, I suspect this patient is suicidal and will require observation. Will consult care team to evaluate the patient. Will also obtain labs for medical clearance. Plan: labs, EKG, ASA/APAP levels, ETOH level, UDS, care team consultation, reassessment Differential Diagnosis Differential Diagnoses: The differential diagnosis associated with the presentation includes as above. Admission/Observation Consideration of admission/observation: Escalation of care including admission/observation considered Lab Data MDM Lab Attestation statement: I reviewed the patient's lab results. as above. 10/17/24 16:02 10/17/24 16:02 Labs: Lab Results 10/17/24 10/17/24 Range/Units 16:02 16:37 WBC 7.8 (4.8-10.8) X10*3/uL RBC 3.92 L (4.20-5.50) X10*6/uL Hgb 12.6 (12.0-16.0) g/dl Hct 36.1 L (37.0-47.0) % MCV 92.1 (80.0-98.0) fL MCH 32.1 (27.0-33.0) pg MCHC 34.9 (31.0-35.0) g/dl RDW 12.2 (11.0-16.0) % Plt Count 325 (160-400) X10*3/uL MPV 9.3 L (9.4-12.3) fL Immature Gran % (Auto) 0.3 (0.0-0.4) % Neut % (Auto) 58.5 (45-73) % Lymph % (Auto) 28.6 (20-40) % [place] % (Auto) 11.9 H (2-11) % Eos % (Auto) 0.4 (0-4) % Baso % (Auto) 0.3 (0-2) % Lymph # (Auto) 2.2 (1.2-4.9) X10*3/uL [place] # (Auto) 0.9 (0.1-1.2) X10*3/uL Eos # (Auto) 0.0 (0.0-0.4) X10*3/uL Baso # (Auto) 0.0 (0.0-0.2) X10*3/uL Abs Immat Gran (auto) 0.02 (0.00-0.03) X10*3/uL Absolute Neuts (auto) 4.6 (2.0-8.3) x10*3/uL Absolute Nucleated RBC 0.000 (0.0-0.012) X10*3/uL Nucleated RBC % (auto) 0.0 (0.0-0.2) /100WBC Sodium 139 (135-145) mmol/L Potassium 4.8 (3.3-5.1) mmol/L Chloride 106 (96-108) mmol/L Carbon Dioxide 28 (22-29) mmol/L Anion Gap 10 L (12-20) BUN 7 L (9-16) mg/dL Creatinine 0.74 (0.5-1.4) mg/dL Estim Creat Clear Calc 125.6 Estimated GFR > 60 Random Glucose 86 (60-115) mg/dL Calcium 9.2 (8.4-10.2) mg/dL Total Bilirubin 0.4 (0.0-1.0) mg/dL AST 69 H (5-31) U/L ALT 80 H (0-31) U/L Alkaline Phosphatase 45 (39-117) U/L Total Protein 7.3 (6.5-8.0) g/dL Albumin 4.1 (3.5-5.0) g/dL Urine Color Yellow Urine Appearance Clear Urine pH 6.0 (5.0-9.0) Ur Specific [place] 1.025 (1.005-1.025) Urine Protein Negative (Neg-Trace) mg/dL Urine Glucose (UA) Negative (Negative) mg/dL Urine Ketones 15 (Negative) mg/dL Urine Blood Negative (Negative) Urine Nitrite Negative (Negative) Ur Leukocyte Esterase Negative (Negative) Urine RBC 0-2 (0-2) /HPF Urine WBC 0-5 (0-5) /HPF Ur Squamous Epith Cells 0-2 (0-2) /HPF Urine Bacteria None Seen (None Seen) Hyaline Casts 0-2 (0-2) /LPF Urine Test NEGATIVE (NEGATIVE) Salicylates < 5.0 L (15-30) mg/dL Urine Opiates Screen Not Detected (Not Detect) Ur Buprenorphine Scrn Not Detected (Not Detect) ng/mL Ur Oxycodone Screen Not Detected (Not Detect) ng/mL Urine Methadone Screen Not Detected (Not Detect) ng/mL Urine Fentanyl Screen Not Detected (Not Detect) Acetaminophen < 3 (<30) mcg/mL Ur Barbiturates Screen Not Detected (Not Detect) Ur Phencyclidine Scrn Not Detected (Not Detect) Ur Amphetamines Screen Not Detected (Not Detect) U Benzodiazepines Scrn Not Detected (Not Detect) Urine Cocaine Screen Not Detected (Not Detect) U Marijuana (THC) Screen Not Detected (Not Detect) Ethyl Alcohol < 10 mg/dL Independent Historian Clinical information obtained from an independent historian. History obtained from or confirmed by: EMS External Record Review External record reviewed: Inpatient record Chronic Conditions Patient?s care impacted by: Other (bipolar disorder) Social Determinants Patient?s care significantly limited by Social Determinants of Health including: Other Social Determinant of Health Critical Care Time Critical Care Time Critical Care Time: No Discharge Plan Discharge Clinical Impression: Suicidal ideation Patient Disposition: Admitted As Inpatient Interventions: Keno-Suicide Risk Severity Scale Last Done: 10/17/24 15:26 Admission Worksheet (ED) Last Done: 10/18/24 13:18 Discharge Date/Time: 10/18/24 13:19
[2024-10-17 15:23] VITALS: BMI 34.3
--- NOTE | 2024-10-17 15:32 | MHC.CARE ---
Pt seen by Celestina banks in community will be inpatient bed search, will send assessment when completed.
[2024-10-17 15:36] VITALS: BP 122/68; PULSE 95; RESP 16; TEMP 36.3; O2SAT 97
[2024-10-17 16:19] LABS: MANUAL DIFF FLAG NO
[2024-10-17 16:23] LABS: Appearance Urine Clear; Glucose Urine UA Negative (Negative); Hematocrit 36.1 % (37.0-47.0); Hemoglobin 12.6 g/dl (12.0-16.0); Imm Gran Abs Auto 0.02 X10*3/uL (0.00-0.03); Imm Gran Pct Auto 0.3 % (0.0-0.4); Lymphocytes Absolute Auto 2.2 X10*3/uL (1.2-4.9); Mean Corpuscular HGB Conc 34.9 g/dl (31.0-35.0); Mean Corpuscular Hemoglobin 32.1 pg (27.0-33.0); Mean Corpuscular Volume 92.1 fL (80.0-98.0); NRBC Abs Auto 0.000 X10*3/uL (0.0-0.012); NRBC Pct Auto 0.0 /100WBC (0.0-0.2); PH 6.0 (5.0-9.0); Platelet Count 325 X10*3/uL (160-400); Red Blood Count 3.92 X10*6/uL (4.20-5.50); Specific Gravity - Urine 1.025 (1.005-1.025); White Blood Count 7.8 X10*3/uL (4.8-10.8)
[2024-10-17 16:32] LABS: Cannabinoid Screen Urine Not Detected (Not Detect)
--- NOTE | 2024-10-17 16:40 | MHC.EDTECH ---
Call to lab to add on upreg to samples sent to lab. Per lab amend urine orders and send to lab for processing. orders amended and labels sent to lab.
[2024-10-17 16:44] LABS: Alanine Aminotransferase 80 U/L (0-31); Albumin Level 4.1 g/dL (3.5-5.0); Alkaline Phosphatase 45 U/L (39-117); Anion Gap 10 (12-20); Aspartate Amino Transferase 69 U/L (5-31); Blood Urea Nitrogen 7 mg/dL (9-16); Calcium 9.2 mg/dL (8.4-10.2); Carbon Dioxide 28 mmol/L (22-29); Chloride 106 mmol/L (96-108); Creatinine Clr Calc Pharmacy 125.6; Estimated Glomerular Filt Rate > 60; Potassium 4.8 mmol/L (3.3-5.1); Sodium 139 mmol/L (135-145); Total Protein 7.3 g/dL (6.5-8.0)
[2024-10-17 16:47] LABS: UPreg QC Valid YES
[2024-10-17 16:58] LABS: Acetaminophen LAB < 3 mcg/mL (<30); Salicylate < 5.0 mg/dL (15-30)
--- OUTSIDE RECORDS SUMMARY | 2024-10-17 18:16 | XMS_ITS | Clinical Summary ---
Author Organization [facility] Address [address] [place] [address] Phone Care Team Providers Care Proof Reader Name Role Phone Physician, No Pcp Primary Care Provider Unavaila ble Allergies Active Allergy Reactions Criticality Noted Date Comments Phenytoin Sodium Extended 07/06/2024 Medications albuterol HFA (PROAIR HFA ; PROVENTIL HFA ; VENTOLIN HFA) 90 mcg/actuation inhalerIndicati ons:Acute cough Inhale 1-2 puffs by mouth every 6 (six) hours if needed for wheezing or shortness of breath. 1 each Active Medical History Medical History Date Comments Epilepsy ([facility] V24, [facility] V28) Social History Tobacco Use Types Packs/Day [...] 01/11/2022 Social Influencers of Health Screening 01/11/2022 Depression Screening 02/09/2024 COVID-19 Vaccine ( - 2024-2 6 season) 2024 04/24/2021, 09/23/2020, 08/26/2020 Influenza Vaccine (#1) 2024 [...] on patient's age to complete this topic Insurance [employer] Care Teams Proof Reader Relationship Specialty Start Date End Date Physician, No Pcp PCP - General 07/07/24
--- NOTE | 2024-10-17 19:53 | PC.NURSE ---
Patient alert and oriented x4, pleasant and cooperative. Patient denies SI/HI/auditory hallucinations at this time. Medication reconciliation completed per patient's report at bedside by this RN. Patient reports history of intermittent headaches which she manages with Tylenol 650 mg as needed. Patient reports frontal headache 3/10 at present-pain is at at tolerable level. Patient currently resting in bed in no acute distress, continuous/q 15 min safety checks per plan of care.
[2024-10-17 22:36] VITALS: BP 145/89; PULSE 89; RESP 18; TEMP 36.5; O2SAT 97
[2024-10-17 22:43] VITALS: BP 145/89; PULSE 89
--- NOTE | 2024-10-17 22:44 | PC.NURSE ---
Patient medicated per APR. Patient states headache resolved. Patient requested a snack, provided with sandwich and juice.
[2024-10-18 06:20] VITALS: BP 144/76; PULSE 92; RESP 20; TEMP 36.9; O2SAT 96
--- NOTE | 2024-10-18 07:34 | PC.NURSE ---
Assumed care of pt, pt currently sleeping. Resp even, nonlaboured.
--- NOTE | 2024-10-18 07:48 | ECG_ITS ---
Test Reason : check qtc Blood Pressure : */* mmHG Vent. Rate : 81 BPM Atrial Rate : 81 BPM P-R Int : 138 ms QRS Dur : 82 ms QT Int : 394 ms P-R-T Axes : 22 10 46 degrees QTcB Int : 457 ms Normal sinus rhythm Minimal voltage criteria for LVH, may be normal variant ( R in aVL ) Nonspecific T wave abnormality Abnormal ECG No previous ECGs available Referred By: Generic ED Physician Electronically Signed By: CATARINA ESCOBEDO MD
[2024-10-18 08:17] VITALS: BP 144/76; PULSE 92
--- NOTE | 2024-10-18 13:22 | PHA.MEDREC ---
Addendum entered by Susie Mederos RPh 10/18/24 14:42: MED REC REVIEWED BY [facility] Original Note: Pharmacy Consult ? Medication Reconciliation Pharmacy reviewed med rec done by nursing. Spoke with pt and she confirmed her medications. Pt confirmed she takes Indomethacin as needed for migraine headaches and Lorazepam as needed for anxiety. Pt states she is no longer taking Magnesium tablets at bedtime and she confirmed her Risperidone 1mg tab 1 tab (1mg) in the morning and 2 tabs (2mg) at bedtime; update med rec with information pt gave me.
[2024-10-18 13:25] VITALS: BP 118/78; PULSE 94; RESP 16; TEMP 36.5; O2SAT 97
[2024-10-18 13:37] VITALS: BMI 47.0
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
[2024-10-18 15:45] VITALS: BP 116/74; PULSE 93
[2024-10-18] MEDS: Flu Vacc TS2025-26(6mo up)/PF 0.5 ML SYRINGE IM (16:06)
--- NOTE | 2024-10-18 16:14 | PC.ADMIT ---
Iris is a 24-year-old female admitted from [facility] to 10/18/24 1322 on a CV for treatment of unspecified anxiety disorder and unspecified dissociative disorder. Medical hx: seizures. Tox screen negative. Per crisis eval, pt was evaluated by TORI Duarte at [facility] after the program nurse requested an assessment due to concerns of suicidal ideation with a plan to overdose on medications. Pt reported CAH telling her to overdose on Keppra. Pt reported increased isolation and episodes of dissociation including derealization that the world is not real, gaps in memory, scattered thoughts and feeling disoriented. Upon arrival to , pt was A&Ox4, displayed a flat affect, thought process linear and organized. Pt was pleasant and cooperative however appeared guarded and only answered yes or no to assessment questions. Skin check revealed dry scaly areas under her bilateral armpits, pt reported areas were itchy and she recently used an antifungal. Pt denied appetite disturbances but reported recent weight gain and stated all I do is eat and sleep, I sleep a lot. Pt currently denies SI/HI/AH/VH but will reach out to staff if thoughts occur. Pt placed on 15 minute safety checks.
--- NOTE | 2024-10-18 17:25 | PC.NURSE ---
Pt reported she uses a nicotine vape daily but declined nicotine replacement therapy.
[2024-10-18 21:15] VITALS: BP 97/62; PULSE 85; RESP 16; TEMP 36.4; O2SAT 96
[2024-10-19 07:00] VITALS: BMI 47.2
[2024-10-19 07:54] VITALS: BP 123/82; PULSE 86; RESP 16; TEMP 36.6; O2SAT 97
[2024-10-19 08:21] VITALS: BP 123/82
[2024-10-19 08:22] VITALS: BP 123/82; PULSE 86
--- NOTE | 2024-10-19 13:00 | P.PNPSI_ITS ---
Subjective Subjective Date of Service: 10/19/24 Reason For Visit: Depression/SI/AH Interim History: calm, cooperative. feeling very anxious, asking for ativan. 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 has anxiety about going outside and perceiving the world as unreal. MD reinstates ativan PRNs, which pt has ordered as an outpatient. pt c/o feeling sleepy, declines to move VPA to HS, saying she would prefer to speak with her neurologist about that. does agree to decrease morning risperidone to 0.5 mg to decreae sedation. Mental Status Exam Mental Status Exam Narrative: adequately dressed and groomed. general PMR. cooperative. speech nml amount, decr rate, decr prosody. thoughts linear and logical. affect constricted, normo-intense, non-labile. mood anxious. no SI/SIBI/HI/AVH expressed. Diagnostics Vital Signs (24Hr): Vital Signs - 24 hr 10/18/24 13:25 10/18/24 15:45 10/18/24 21:15 Temperature 97.7 F 97.6 F Pulse Rate 94 93 85 Respiratory Rate 16 16 Blood Pressure 118/78 116/74 97/62 Pulse Oximetry 97 96 Oxygen Delivery Method Room Air Room Air 10/19/24 07:54 10/19/24 08:21 10/19/24 08:22 Temperature 97.8 F Pulse Rate 86 86 Respiratory Rate 16 Blood Pressure 123/82 123/82 123/82 Pulse Oximetry 97 Oxygen Delivery Method Room Air BMI result Body Mass Index 47.2 Labs 10/17/24 16:02 10/17/24 16:02 Labs: Laboratory Results - last 48 hr 10/17/24 10/17/24 16:02 16:37 WBC 7.8 RBC 3.92 L Hgb 12.6 Hct 36.1 L MCV 92.1 MCH 32.1 MCHC 34.9 RDW 12.2 Plt Count 325 MPV 9.3 L Immature Gran % (Auto) 0.3 Neut % (Auto) 58.5 Lymph % (Auto) 28.6 [place] % (Auto) 11.9 H Eos % (Auto) 0.4 Baso % (Auto) 0.3 Lymph # (Auto) 2.2 [place] # (Auto) 0.9 Eos # (Auto) 0.0 Baso # (Auto) 0.0 Abs Immat Gran (auto) 0.02 Absolute Neuts (auto) 4.6 Absolute Nucleated RBC 0.000 Nucleated RBC % (auto) 0.0 Sodium 139 Potassium 4.8 Chloride 106 Carbon Dioxide 28 Anion Gap 10 L BUN 7 L Creatinine 0.74 Estim Creat Clear Calc 125.6 Estimated GFR > 60 Random Glucose 86 Calcium 9.2 Total Bilirubin 0.4 AST 69 H ALT 80 H Alkaline Phosphatase 45 Total Protein 7.3 Albumin 4.1 Urine Color Yellow Urine Appearance Clear Urine pH 6.0 Ur Specific [place] 1.025 Urine Protein Negative Urine Glucose (UA) Negative Urine Ketones 15 Urine Blood Negative Urine Nitrite Negative Ur Leukocyte Esterase Negative Urine RBC 0-2 Urine WBC 0-5 Ur Squamous Epith Cells 0-2 Urine Bacteria None Seen Hyaline Casts 0-2 Urine Test NEGATIVE Salicylates < 5.0 L Urine Opiates Screen Not Detected Ur Buprenorphine Scrn Not Detected Ur Oxycodone Screen Not Detected Urine Methadone Screen Not Detected Urine Fentanyl Screen Not Detected Acetaminophen < 3 Ur Barbiturates Screen Not Detected Ur Phencyclidine Scrn Not Detected Ur Amphetamines Screen Not Detected U Benzodiazepines Scrn Not Detected Urine Cocaine Screen Not Detected U Marijuana (THC) Screen Not Detected Ethyl Alcohol < 10 Medications Medications Current Medications Acetaminophen (Acetaminophen 325 Mg Tablet) 650 mg PO Q6H PRN PRN Reason: Headache/Pain, Scale 1-10 Al Hydroxide/Mg Hydroxide (Magnesium Hydrox/Alum Hydrox 30 Ml Oral.Susp) 30 ml PO Q6H PRN PRN Reason: Heartburn/Nausea Atorvastatin Calcium (Atorvastatin Calcium 20 Mg Tablet) 20 mg PO DAILY [facility] Last Admin: 10/19/24 08:22 Dose: 20 mg Clonidine HCl (Clonidine Hcl 0.1 Mg Tablet) 0.1 mg PO TID [facility]; Protocol Last Admin: 10/19/24 08:21 Dose: 0.1 mg Divalproex Sodium (Divalproex Sodium Er 500 Mg Tab.Er.24h) 1,500 mg PO DAILY [facility] Last Admin: 10/19/24 08:22 Dose: 1,500 mg Hydroxyzine HCl (Hydroxyzine Hcl 25 Mg Tablet) 25 mg PO Q6H PRN PRN Reason: mild anxiety Levetiracetam (Levetiracetam 1,000 Mg Tablet) 2,000 mg PO BID [facility] Last Admin: 10/19/24 08:21 Dose: 2,000 mg Lorazepam (Lorazepam 1 Mg Tablet) 1 mg PO TID PRN PRN Reason: anxiety Magnesium Hydroxide (Milk Of Magnesia 30 Ml Oral.Susp) 30 ml PO DAILY PRN PRN Reason: Constipation Magnesium Oxide (Magnesium Oxide 400 Mg Tablet) 400 mg PO BEDTIME [facility] Last Admin: 10/18/24 21:26 Dose: 400 mg Multivitamins/Vitamin C (Multivitamin Tablet) 1 tab PO DAILY [facility] Last Admin: 10/19/24 08:22 Dose: 1 tab Nicotine Polacrilex (Nicotine Polacrilex 2 Mg Gum) 2 mg BUCCAL Q2H PRN PRN Reason: Nicotine Cravings Nystatin (Nystatin Powder 15 Gm Bottle) 1 appl TOPICAL BID [facility]; Protocol Last Admin: 10/19/24 10:55 Dose: Not Given Oxcarbazepine (Oxcarbazepine 300 Mg Tablet) 600 mg PO BID [facility] Last Admin: 10/19/24 08:21 Dose: 600 mg Propranolol HCl (Propranolol Hcl 10 Mg Tablet) 10 mg PO BID [facility]; Protocol Last Admin: 10/19/24 08:22 Dose: 10 mg Pyridoxine HCl (Pyridoxine Hcl (Vitamin B6) 50 Mg Tablet) 100 mg PO BID [facility] Last Admin: 10/19/24 08:21 Dose: 100 mg Risperidone (Risperidone 3 Mg Tablet) 3 mg PO BEDTIME [facility] Last Admin: 10/18/24 21:26 Dose: 3 mg Risperidone (Risperidone 0.5 Mg Tablet) 0.5 mg PO DAILY [facility] Trazodone HCl (Trazodone Hcl 50 Mg Tablet) 50 mg PO BEDTIME MRX1 PRN PRN Reason: Insomnia Allergies Allergies Allergy/AdvReac Type Severity Reaction Status Date / Time phenytoin Allergy Intermediate unknown Verified 10/17/24 15:26 Assessment & Plan Assessment & Plan (1) Post traumatic stress disorder (PTSD): Status: Acute Code(s): F43.10 - Post-traumatic stress disorder, unspecified (2) Panic disorder with agoraphobia: Status: Acute Code(s): F40.01 - Agoraphobia with panic disorder (3) Verbal auditory hallucinations: Status: Acute Code(s): R44.0 - Auditory hallucinations (4) Suicidal ideation: Status: Acute Code(s): R45.851 - Suicidal ideations (5) Mood disorder: Status: Acute Code(s): F39 - Unspecified mood [affective] disorder Plan 10/18: increase HS risperidone to 3 mg to target AH/paranoia. start clonidine 0.1 TID to target anxiety (and thereby decreasing AH/paranoia). otherwise continue outpt medications regimen. T/C starting SSRI for long-term Tx of PTSD. 10/19: calm, cooperative. c/o anxiety, asking for ativan. outpt 1 mg TID PRN ordered. also saying AH, anxiety, paranoia better than prior. c/o daytime sedation. declines to move VPA to HS, saying she would like to discuss with her neurologist. agreeable to decrease morning risperidone from 1 mg to 0.5 mg in attempt to reduce daytime drowsiness. BP/P WNL. Reason for continued inpatient stay Substantial Risk for: harm to self, inability to function and rapid decompensation Time Spent With Patient Time: Total time managing care of this patient today __25__ minutes.
--- NOTE | 2024-10-19 13:42 | P.CONHOSP_ITS ---
History of Present Illness Data of Consult Service Date: 10/19/24 Primary Care Provider: Unknown Physician HPI Reason for consult: Medical management 24-year-old female with a past medical history of bipolar 2 disorder with atypical features, movement disorder, panic disorder, PTSD, hyperlipidemia, obesity, cognitive dysfunction and seizure disorder presented to the ED for suicidal ideation. Patient attends a day program. CBC without leukocytosis, H&H stable, chemistry without any acute abnormalities, no RICARDO and liver function at baseline. Urine was without infection, negative, toxicology negative, EtOH acetaminophen and salicylates undetectable. She was cleared for medical admission and is admitted to inpatient psych for further care. On exam she has no medical concerns. She denies any shortness of breath, dizziness, lightheadedness or any other concerning symptoms. Review of Systems 2 Review of Systems: Denies any shortness of breath, chest pain, dizziness, lightheadedness, abdominal pain or discomfort, nausea vomiting or diarrhea PMFSH Family History Father Heart disease Mother Cancer Social History Household Members: Family Housing: Apartment Do you presently have visiting nurse or other home services: No Unable to assess alcohol history related to: Unknown Alcohol intake: current Alcohol intake frequency: a few times a month Alcohol type: beer Patient Tobacco Use Status: Never used Tobacco e-Cigarette/Vaping Use: Currently Using Patient Interested in Nicotine Replacement: No Patient Given Instructions on How to Stop Smoking: Yes Date Education Initiated: 10/18/24 Use of substances other than those prescribed or required for medical reasons: Unknown Currently Displaying Signs/Symptoms of Drug Intoxication Withdrawal: No Have you been hit, kicked, punched, or otherwise hurt by someone within the past year? If so, by whom?: No Do you feel safe in your current relationship?: Yes Is there a partner from a previous relationship who is making you feel unsafe now?: No Are you made to feel afraid or neglected: No Advance Directives: No Advance Directives Information Provided: No Do you have thoughts of harming others: None Do you have a plan to hurt others: No Plan Recently lost weight without trying: No Eating poorly because of decreased appetite: No Nutrition Risks: No Nutritional Risk Patient : No : No Poor oral hygiene: No service: No Sexual orientation: Lesbian/Wall/Homosexual Meds Allergies Allergy/AdvReac Type Severity Reaction Status Date / Time phenytoin Allergy Intermediate unknown Verified 10/17/24 15:26 Active Medications: Current Medications Acetaminophen (Acetaminophen 325 Mg Tablet) 650 mg PO Q6H PRN PRN Reason: Headache/Pain, Scale 1-10 Al Hydroxide/Mg Hydroxide (Magnesium Hydrox/Alum Hydrox 30 Ml Oral.Susp) 30 ml PO Q6H PRN PRN Reason: Heartburn/Nausea Atorvastatin Calcium (Atorvastatin Calcium 20 Mg Tablet) 20 mg PO DAILY [facility] Last Admin: 10/19/24 08:22 Dose: 20 mg Clonidine HCl (Clonidine Hcl 0.1 Mg Tablet) 0.1 mg PO TID [facility]; Protocol Last Admin: 10/19/24 08:21 Dose: 0.1 mg Divalproex Sodium (Divalproex Sodium Er 500 Mg Tab.Er.24h) 1,500 mg PO DAILY [facility] Last Admin: 10/19/24 08:22 Dose: 1,500 mg Hydroxyzine HCl (Hydroxyzine Hcl 25 Mg Tablet) 25 mg PO Q6H PRN PRN Reason: mild anxiety Levetiracetam (Levetiracetam 1,000 Mg Tablet) 2,000 mg PO BID [facility] Last Admin: 10/19/24 08:21 Dose: 2,000 mg Lorazepam (Lorazepam 1 Mg Tablet) 1 mg PO TID PRN PRN Reason: anxiety Magnesium Hydroxide (Milk Of Magnesia 30 Ml Oral.Susp) 30 ml PO DAILY PRN PRN Reason: Constipation Magnesium Oxide (Magnesium Oxide 400 Mg Tablet) 400 mg PO BEDTIME [facility] Last Admin: 10/18/24 21:26 Dose: 400 mg Multivitamins/Vitamin C (Multivitamin Tablet) 1 tab PO DAILY [facility] Last Admin: 10/19/24 08:22 Dose: 1 tab Nicotine Polacrilex (Nicotine Polacrilex 2 Mg Gum) 2 mg BUCCAL Q2H PRN PRN Reason: Nicotine Cravings Nystatin (Nystatin Powder 15 Gm Bottle) 1 appl TOPICAL BID [facility]; Protocol Last Admin: 10/19/24 10:55 Dose: Not Given Oxcarbazepine (Oxcarbazepine 300 Mg Tablet) 600 mg PO BID [facility] Last Admin: 10/19/24 08:21 Dose: 600 mg Propranolol HCl (Propranolol Hcl 10 Mg Tablet) 10 mg PO BID [facility]; Protocol Last Admin: 10/19/24 08:22 Dose: 10 mg Pyridoxine HCl (Pyridoxine Hcl (Vitamin B6) 50 Mg Tablet) 100 mg PO BID [facility] Last Admin: 10/19/24 08:21 Dose: 100 mg Risperidone (Risperidone 3 Mg Tablet) 3 mg PO BEDTIME [facility] Last Admin: 10/18/24 21:26 Dose: 3 mg Risperidone (Risperidone 0.5 Mg Tablet) 0.5 mg PO DAILY [facility] Trazodone HCl (Trazodone Hcl 50 Mg Tablet) 50 mg PO BEDTIME MRX1 PRN PRN Reason: Insomnia Home Medications ?Medication ?Instructions ?Recorded ?Confirmed ?Last Taken ?Type indomethacin 25 mg capsule 25 mg PO TID PRN Migraine H eadache 10/18/24 10/18/24 Unknown History lorazepam 1 mg tablet 1 mg PO TID PRN Anxiety 10/0910/18/24 10/17/24 History risperidone 1 mg tablet 1 mg PO DAILY 10/18/2410/1810/17/24 History risperidone 1 mg tablet 2 mg PO BEDTIME 10/18/2412/0210/16/24 History Physical Exam 2 Vital Signs and Narrative: Vital Signs: Last Vital Signs Temp 97.8 F 10/19/24 07:54 Pulse 86 10/19/24 08:22 Resp 16 10/19/24 07:54 BP 123/82 10/19/24 08:22 Pulse Ox 97 10/19/24 07:54 O2 Del Method Room Air 10/19/24 07:54 BMI result Body Mass Index 47.2 Alert and oriented X4 Neuro: CN II-X11 intact, no deficits, visual acuity intact EYES: PERRLA, EOM intact ENT: Hearing intact, lips moist, nares patent Cardiac: S1 S2 RRR, No ectopy Pulmonary: lungs clear to auscultation, No increased WOB. Abdominal: BS active in all 4 quadrants, no guarding or tenderness MSK: Strength 5/5 upper and lower extremities : Deferred Extremities: No edema in lower extremities Psych: mood stable, Quiet and cooperative. Skin: Warm and dry, Intact Results Labs 10/17/24 16:02 10/17/24 16:02 Assessment and Plan (1) Epilepsy: Qualifiers: Epilepsy type: other generalized Intractability: not intractable S tatus epilepticus: without status epilepticus Qualified Code(s): G40.409 - Other generalized epilepsy and epileptic syndromes, not intractable, without status epilepticus Status: Acute Plan 24-year-old female with a past medical history of bipolar disorder, PTSD, seizure disorder, hyperlipidemia presented to the ED with suicidal ideation, she is admitted to inpatient psychiatric level of care for further treatment. Bipolar 2 disorder/panic disorder/PTSD Treatment per psychiatric team Seizure disorder Continue on levetiracetam b.i.d. Hyperlipidemia Continue atorvastatin Thank you for allowing me to participate in the care of this patient. Signing off at this time. Please reconsult of any acute concerns or issues arise
[2024-10-19 15:43] VITALS: BP 114/69
[2024-10-19 20:00] VITALS: BP 102/57; PULSE 102; RESP 16; TEMP 36.8; O2SAT 95
[2024-10-19 21:25] VITALS: BP 102/57; PULSE 102
[2024-10-20 07:05] VITALS: BP 108/60; PULSE 86; RESP 14; TEMP 36.5; O2SAT 97
[2024-10-20 08:43] LABS: Hemoglobin A1C 119.5460 umol/L; Total Hemoglobin (HGBA1C) 3619.2986 umol/L
[2024-10-20 09:02] LABS: Cholesterol 210 mg/dL (<200); HDL Cholesterol 36 mg/dL (>40); Triglycerides 262 mg/dL (<150)
[2024-10-20 09:12] LABS: Free T4 (Free Thyroxine) 0.86 ng/dL (0.71-1.85); Thyroid Stimulating Hormone 3.95 uIU/mL (0.32-4.0)
[2024-10-20 09:24] LABS: Folate 7.0 ng/mL (> or = 4.0); Vitamin B12 680 pg/mL (200-900)
--- NOTE | 2024-10-20 11:27 | P.PNPSI_ITS ---
Subjective Subjective Date of Service: 10/20/24 Reason For Visit: Depression/SI/AH Interim History: tired, in bed. feels her anxiety has improved substantially. denies SI. agreeable to continue as we are and check in wednesday, planning for discharge early next week if trajectory holds. per staff, denies depression. anx 6-9. taking meds. denies SI. some AH but no longer CAH. slept through the night. Mental Status Exam Mental Status Exam Narrative: adequately dressed and groomed. general PMR. cooperative. speech nml amount, decr rate, decr prosody. thoughts linear and logical. affect constricted, normo-intense, non-labile. mood good. no SI. no SIBI/HI/AVH expressed. Diagnostics Vital Signs (24Hr): Vital Signs - 24 hr 10/19/24 15:43 10/19/24 20:00 10/19/24 21:25 Temperature 98.3 F Pulse Rate 102 H 102 H Respiratory Rate 16 Blood Pressure 114/69 102/57 L 102/57 L Pulse Oximetry 95 Oxygen Delivery Method Room Air 10/19/24 21:25 10/20/24 07:05 Temperature 97.7 F Pulse Rate 86 Respiratory Rate 14 Blood Pressure 102/57 L 108/60 Pulse Oximetry 97 Oxygen Delivery Method Room Air BMI result Body Mass Index 47.2 Labs 10/17/24 16:02 10/17/24 16:02 Labs: Laboratory Results - last 48 hr 10/20/24 08:17 Estimat Average Glucose 103 Hemoglobin A1c % 5.2 Triglycerides 262 H Cholesterol 210 H LDL Cholesterol, Calc 122 H HDL Cholesterol 36 L Vitamin B12 680 Folate 7.0 TSH 3.95 Free T4 0.86 Medications Medications Current Medications Acetaminophen (Acetaminophen 325 Mg Tablet) 650 mg PO Q6H PRN PRN Reason: Headache/Pain, Scale 1-10 Al Hydroxide/Mg Hydroxide (Magnesium Hydrox/Alum Hydrox 30 Ml Oral.Susp) 30 ml PO Q6H PRN PRN Reason: Heartburn/Nausea Atorvastatin Calcium (Atorvastatin Calcium 20 Mg Tablet) 20 mg PO DAILY [facility] Last Admin: 10/20/24 08:02 Dose: 20 mg Clonidine HCl (Clonidine Hcl 0.1 Mg Tablet) 0.1 mg PO TID [facility] [place]; Protocol Last Admin: 10/20/24 08:03 Dose: 0.1 mg Divalproex Sodium (Divalproex Sodium Er 500 Mg Tab.Er.24h) 1,500 mg PO DAILY [facility] Last Admin: 10/20/24 08:01 Dose: 1,500 mg Hydroxyzine HCl (Hydroxyzine Hcl 25 Mg Tablet) 25 mg PO Q6H PRN PRN Reason: mild anxiety Levetiracetam (Levetiracetam 1,000 Mg Tablet) 2,000 mg PO BID [facility] Last Admin: 10/20/24 08:02 Dose: 2,000 mg Lorazepam (Lorazepam 1 Mg Tablet) 1 mg PO TID PRN PRN Reason: anxiety Magnesium Hydroxide (Milk Of Magnesia 30 Ml Oral.Susp) 30 ml PO DAILY PRN PRN Reason: Constipation Magnesium Oxide (Magnesium Oxide 400 Mg Tablet) 400 mg PO BEDTIME [facility] Last Admin: 10/19/24 21:34 Dose: 400 mg Multivitamins/Vitamin C (Multivitamin Tablet) 1 tab PO DAILY [facility] [place] Last Admin: 10/20/24 08:02 Dose: 1 tab Nicotine Polacrilex (Nicotine Polacrilex 2 Mg Gum) 2 mg BUCCAL Q2H PRN PRN Reason: Nicotine Cravings Nystatin (Nystatin Powder 15 Gm Bottle) 1 appl TOPICAL BID [facility]; Protocol Last Admin: 10/20/24 08:04 Dose: Not Given Oxcarbazepine (Oxcarbazepine 300 Mg Tablet) 600 mg PO BID [facility] [place] Last Admin: 10/20/24 08:03 Dose: 600 mg Propranolol HCl (Propranolol Hcl 10 Mg Tablet) 10 mg PO BID [facility] [place]; Protocol Last Admin: 10/20/24 08:02 Dose: 10 mg Pyridoxine HCl (Pyridoxine Hcl (Vitamin B6) 50 Mg Tablet) 100 mg PO BID [facility] [place] Last Admin: 10/20/24 08:03 Dose: 100 mg Risperidone (Risperidone 3 Mg Tablet) 3 mg PO BEDTIME [facility] Last Admin: 10/19/24 21:25 Dose: 3 mg Risperidone (Risperidone 0.5 Mg Tablet) 0.5 mg PO DAILY [facility] [place] Last Admin: 10/20/24 08:03 Dose: 0.5 mg Trazodone HCl (Trazodone Hcl 50 Mg Tablet) 50 mg PO BEDTIME MRX1 PRN PRN Reason: Insomnia Allergies Allergies Allergy/AdvReac Type Severity Reaction Status Date / Time phenytoin Allergy Intermediate unknown Verified 10/17/24 15:26 Assessment & Plan Assessment & Plan (1) Epilepsy: Qualifiers: Epilepsy type: other generalized Intractability: not intractable S tatus epilepticus: without status epilepticus Qualified Code(s): G40.409 - Other generalized epilepsy and epileptic syndromes, not intractable, without status epilepticus Status: Acute Code(s): G40.909 - Epilepsy, unspecified, not intractable, without status epilepticus Assessment and Plan: 24-year-old female with a past medical history of bipolar disorder, PTSD, seizure disorder, hyperlipidemia presented to the ED with suicidal ideation, she is admitted to inpatient psychiatric level of care for further treatment. Bipolar 2 disorder/panic disorder/PTSD Treatment per psychiatric team Seizure disorder Continue on levetiracetam b.i.d. Hyperlipidemia Continue atorvastatin Thank you for allowing me to participate in the care of this patient. Signing off at this time. Please reconsult of any acute concerns or issues arise (2) Post traumatic stress disorder (PTSD): Status: Acute Code(s): F43.10 - Post-traumatic stress disorder, unspecified (3) Panic disorder with agoraphobia: Status: Acute Code(s): F40.01 - Agoraphobia with panic disorder (4) Verbal auditory hallucinations: Status: Acute Code(s): R44.0 - Auditory hallucinations Plan 10/18: increase HS risperidone to 3 mg to target AH/paranoia. start clonidine 0.1 TID to target anxiety (and thereby decreasing AH/paranoia). otherwise continue outpt medications regimen. T/C starting SSRI for long-term Tx of PTSD. 10/19: calm, cooperative. c/o anxiety, asking for ativan. outpt 1 mg TID PRN ordered. also saying AH, anxiety, paranoia better than prior. c/o daytime sedation. declines to move VPA to HS, saying she would like to discuss with her neurologist. agreeable to decrease morning risperidone from 1 mg to 0.5 mg in attempt to reduce daytime drowsiness. BP/P WNL. 10/20: remains drowsy in the morning. anxiety much improved, however, and denies SI. BPs good. continue current mgmt. T/C discharge early next week if improvement holds. Reason for continued inpatient stay Substantial Risk for: inability to function and rapid decompensation Time Spent With Patient Time: Total time managing care of this patient today _25___ minutes.
[2024-10-20 15:45] VITALS: BP 116/60
[2024-10-20 19:15] VITALS: BP 110/56; PULSE 90; RESP 18; TEMP 36.7; O2SAT 95
[2024-10-20 22:20] VITALS: BP 118/67; PULSE 91
[2024-10-21 04:48] VITALS: BP 136/86; PULSE 87
[2024-10-21 08:00] VITALS: BP 107/63; PULSE 81; RESP 16; TEMP 36.6; O2SAT 97
--- NOTE | 2024-10-21 08:41 | HO.PSYCHPN ---
Subjective Subjective Date of Service: 10/21/24 Reason For Visit: Depression/SI/AH Subjective Notes: Conditional Voluntary Healthcare Proxy: No Guardianship: No Medical Problems Affecting Mental Status: No Interim History: Medical record and nursing notes reviewed; case discussed during rounds with team/nursing staff, and met with patient for supportive therapy/psychoeducation, as well as medication management. Report slept well -5 hours. Up at night report chest pain but attributed it to anxiety. Given Ativan PRN with good effect. Patient is seen in bed. No appetite issues. Compliant with meds except Nystatin power which she states she does not need it anymore which was change to PRN. Denies safety concerns. Pleasant and cooperative. No issues. Medication Compliance: Yes Side effects from medications: No Attending Groups: Intermittent Review of Systems Acute medical concerns: No Medical Review of Systems: unchanged Review of Systems Review of Systems Denies any shortness of breath, chest pain, dizziness, lightheadedness, abdominal pain or discomfort, nausea vomiting or diarrhea Yes all other systems are reviewed and are negative Mental Status Exam Mental Status Exam Narrative: adequately dressed and groomed. general PMR. cooperative. speech nml amount, decr rate, decr prosody. thoughts linear and logical. affect constricted, normo-intense, non-labile. mood good. no SI. no SIBI/HI/AVH expressed. Diagnostics Vital Signs (24Hr): Vital Signs - 24 hr 10/20/24 15:45 10/20/24 19:15 10/20/24 22:20 Temperature 98.1 F Pulse Rate 90 Respiratory Rate 18 Blood Pressure 116/60 110/56 L 118/67 Pulse Oximetry 95 Oxygen Delivery Method Room Air 10/20/24 22:20 10/21/24 04:48 10/21/24 08:00 Temperature 97.8 F Pulse Rate 91 87 81 Respiratory Rate 16 Blood Pressure 118/67 136/86 107/63 Pulse Oximetry 97 Oxygen Delivery Method Room Air BMI result Body Mass Index 47.2 Labs 10/17/24 16:02 10/17/24 16:02 Labs: Laboratory Results - last 48 hr 10/20/24 08:17 Estimat Average Glucose 103 Hemoglobin A1c % 5.2 Triglycerides 262 H Cholesterol 210 H LDL Cholesterol, Calc 122 H HDL Cholesterol 36 L Vitamin B12 680 Folate 7.0 TSH 3.95 Free T4 0.86 Medications Medications Current Medications Acetaminophen (Acetaminophen 325 Mg Tablet) 650 mg PO Q6H PRN PRN Reason: Headache/Pain, Scale 1-10 Al Hydroxide/Mg Hydroxide (Magnesium Hydrox/Alum Hydrox 30 Ml Oral.Susp) 30 ml PO Q6H PRN PRN Reason: Heartburn/Nausea Atorvastatin Calcium (Atorvastatin Calcium 20 Mg Tablet) 20 mg PO DAILY [facility] Last Admin: 10/21/24 08:27 Dose: 20 mg Clonidine HCl (Clonidine Hcl 0.1 Mg Tablet) 0.1 mg PO TID [facility]; Protocol Last Admin: 10/21/24 08:28 Dose: 0.1 mg Divalproex Sodium (Divalproex Sodium Er 500 Mg Tab.Er.24h) 1,500 mg PO DAILY [facility] Last Admin: 10/21/24 08:28 Dose: 1,500 mg Hydroxyzine HCl (Hydroxyzine Hcl 25 Mg Tablet) 25 mg PO Q6H PRN PRN Reason: mild anxiety Levetiracetam (Levetiracetam 1,000 Mg Tablet) 2,000 mg PO BID [facility] Last Admin: 10/21/24 08:27 Dose: 2,000 mg Lorazepam (Lorazepam 1 Mg Tablet) 1 mg PO TID PRN PRN Reason: anxiety Last Admin: 10/21/24 04:54 Dose: 1 mg Magnesium Hydroxide (Milk Of Magnesia 30 Ml Oral.Susp) 30 ml PO DAILY PRN PRN Reason: Constipation Magnesium Oxide (Magnesium Oxide 400 Mg Tablet) 400 mg PO BEDTIME [facility] Last Admin: 10/20/24 22:20 Dose: 400 mg Multivitamins/Vitamin C (Multivitamin Tablet) 1 tab PO DAILY [facility] Last Admin: 10/21/24 08:27 Dose: 1 tab Nicotine Polacrilex (Nicotine Polacrilex 2 Mg Gum) 2 mg BUCCAL Q2H PRN PRN Reason: Nicotine Cravings Nystatin (Nystatin Powder 15 Gm Bottle) 1 appl TOPICAL BID [facility]; Protocol Last Admin: 10/21/24 08:30 Dose: Not Given Oxcarbazepine (Oxcarbazepine 300 Mg Tablet) 600 mg PO BID [facility] Last Admin: 10/21/24 08:27 Dose: 600 mg Propranolol HCl (Propranolol Hcl 10 Mg Tablet) 10 mg PO BID [facility]; Protocol Last Admin: 10/21/24 08:27 Dose: 10 mg Pyridoxine HCl (Pyridoxine Hcl (Vitamin B6) 50 Mg Tablet) 100 mg PO BID [facility] Last Admin: 10/21/24 08:28 Dose: 100 mg Risperidone (Risperidone 3 Mg Tablet) 3 mg PO BEDTIME [facility] Last Admin: 10/20/24 22:20 Dose: 3 mg Risperidone (Risperidone 0.5 Mg Tablet) 0.5 mg PO DAILY [facility] Last Admin: 10/21/24 08:28 Dose: 0.5 mg Trazodone HCl (Trazodone Hcl 50 Mg Tablet) 50 mg PO BEDTIME MRX1 PRN PRN Reason: Insomnia Allergies Allergies Allergy/AdvReac Type Severity Reaction Status Date / Time phenytoin Allergy Intermediate unknown Verified 10/17/24 15:26 Assessment & Plan Assessment & Plan (1) Epilepsy: Qualifiers: Epilepsy type: other generalized Intractability: not intractable Status epilepticus: without status epilepticus Qualified Code(s): G40.409 - Other generalized epilepsy and epileptic syndromes, not intractable, without status epilepticus Status: Acute Code(s): G40.909 - Epilepsy, unspecified, not intractable, without status epilepticus Assessment and Plan: 24-year-old female with a past medical history of bipolar disorder, PTSD, seizure disorder, hyperlipidemia presented to the ED with suicidal ideation, she is admitted to inpatient psychiatric level of care for further treatment. Bipolar 2 disorder/panic disorder/PTSD Treatment per psychiatric team Seizure disorder Continue on levetiracetam b.i.d. Hyperlipidemia Continue atorvastatin Thank you for allowing me to participate in the care of this patient. Signing off at this time. Please reconsult of any acute concerns or issues arise (2) Post traumatic stress disorder (PTSD): Status: Acute Code(s): F43.10 - Post-traumatic stress disorder, unspecified (3) Panic disorder with agoraphobia: Status: Acute Code(s): F40.01 - Agoraphobia with panic disorder (4) Verbal auditory hallucinations: Status: Acute Code(s): R44.0 - Auditory hallucinations Plan 10/18: increase HS risperidone to 3 mg to target AH/paranoia. start clonidine 0.1 TID to target anxiety (and thereby decreasing AH/paranoia). otherwise continue outpt medications regimen. T/C starting SSRI for long-term Tx of PTSD. 10/19: calm, cooperative. c/o anxiety, asking for ativan. outpt 1 mg TID PRN ordered. also saying AH, anxiety, paranoia better than prior. c/o daytime sedation. declines to move VPA to HS, saying she would like to discuss with her neurologist. agreeable to decrease morning risperidone from 1 mg to 0.5 mg in attempt to reduce daytime drowsiness. BP/P WNL. 10/20: remains drowsy in the morning. anxiety much improved, however, and denies SI. BPs good. continue current mgmt. T/C discharge early next week if improvement holds. 10/21/24: Report slept well -5 hours. Up at night report chest pain but attributed it to anxiety. Given Ativan PRN with good effect. Patient is seen in bed. No appetite issues. Compliant with meds except Nystatin power which she states she does not need it anymore which was change to PRN. Denies safety concerns. Pleasant and cooperative. No issues. Patient educated on: diagnosis, medication risk/benefits and therapeutic strategies Informed Consent: understands Reason for continued inpatient stay Substantial Risk for: med/psych decompensation Time Spent With Patient Time: Total time managing care of this patient today ____ minutes.
[2024-10-21 20:36] VITALS: BP 125/78; PULSE 104; RESP 16; TEMP 36.9; O2SAT 96
[2024-10-22 08:00] VITALS: BP 132/85; PULSE 101; RESP 16; TEMP 36.6; O2SAT 97
[2024-10-22 15:24] VITALS: BP 100/60; PULSE 93; RESP 16; TEMP 36.6; O2SAT 95
[2024-10-22 21:11] VITALS: BP 124/61; PULSE 89; RESP 16; TEMP 36.6; O2SAT 95
--- NOTE | 2024-10-22 22:35 | HO.PSYCHPN ---
Subjective Subjective Date of Service: 10/22/24 Reason For Visit: Depression/SI/AH Subjective Notes: Conditional Voluntary Healthcare Proxy: No Guardianship: No Medical Problems Affecting Mental Status: No Interim History: Medical record and nursing notes reviewed; case discussed during rounds with team/nursing staff, and met with patient for supportive therapy/psychoeducation, as well as medication management. Patient slept for 8 hours, compliant with medications, but refused 1500 clonidine scheduled yesterday. Stay most of the time in bed, reports he she has been sleeping which is the normal pattern when she was home. Denies safety concerns. No behavior issues. Pleasant and calm upon approach. She asked when she will be discharged. Refer patient to talk to her attending tomorrow Medication Compliance: Yes Side effects from medications: No Attending Groups: No Review of Systems Acute medical concerns: No Medical Review of Systems: unchanged Mental Status Exam Mental Status Exam Narrative: adequately dressed and groomed. general PMR. cooperative. speech nml amount, decr rate, decr prosody. thoughts linear and logical. affect constricted, normo-intense, non-labile. mood good. no SI. no SIBI/HI/AVH expressed. Diagnostics Vital Signs (24Hr): Vital Signs - 24 hr 10/22/24 08:00 10/22/24 15:24 10/22/24 21:11 Temperature 97.8 F 97.9 F 97.8 F Pulse Rate 101 H 93 89 Respiratory Rate 16 16 16 Blood Pressure 132/85 100/60 124/61 Pulse Oximetry 97 95 95 Oxygen Delivery Method Room Air Room Air Room Air BMI result Body Mass Index 47.2 Labs 10/17/24 16:02 10/17/24 16:02 Medications Medications Current Medications Acetaminophen (Acetaminophen 325 Mg Tablet) 650 mg PO Q6H PRN PRN Reason: Headache/Pain, Scale 1-10 Al Hydroxide/Mg Hydroxide (Magnesium Hydrox/Alum Hydrox 30 Ml Oral.Susp) 30 ml PO Q6H PRN PRN Reason: Heartburn/Nausea Atorvastatin Calcium (Atorvastatin Calcium 20 Mg Tablet) 20 mg PO DAILY [facility] Last Admin: 10/22/24 08:40 Dose: 20 mg Clonidine HCl (Clonidine Hcl 0.1 Mg Tablet) 0.1 mg PO TID [facility]; Protocol Last Admin: 10/22/24 21:13 Dose: 0.1 mg Divalproex Sodium (Divalproex Sodium Er 500 Mg Tab.Er.24h) 1,500 mg PO DAILY [facility] Last Admin: 10/22/24 08:41 Dose: 1,500 mg Hydroxyzine HCl (Hydroxyzine Hcl 25 Mg Tablet) 25 mg PO Q6H PRN PRN Reason: mild anxiety Levetiracetam (Levetiracetam 1,000 Mg Tablet) 2,000 mg PO BID [facility] Last Admin: 10/22/24 21:14 Dose: 2,000 mg Lorazepam (Lorazepam 1 Mg Tablet) 1 mg PO TID PRN PRN Reason: anxiety Last Admin: 10/22/24 07:01 Dose: 1 mg Magnesium Hydroxide (Milk Of Magnesia 30 Ml Oral.Susp) 30 ml PO DAILY PRN PRN Reason: Constipation Magnesium Oxide (Magnesium Oxide 400 Mg Tablet) 400 mg PO BEDTIME [facility] Last Admin: 10/22/24 21:14 Dose: 400 mg Multivitamins/Vitamin C (Multivitamin Tablet) 1 tab PO DAILY [facility] Last Admin: 10/22/24 08:41 Dose: 1 tab Nicotine Polacrilex (Nicotine Polacrilex 2 Mg Gum) 2 mg BUCCAL Q2H PRN PRN Reason: Nicotine Cravings Nystatin (Nystatin Powder 15 Gm Bottle) 1 appl TOPICAL BID [facility]; Protocol PRN Reason: rash/yeast infection Oxcarbazepine (Oxcarbazepine 300 Mg Tablet) 600 mg PO BID [facility] Last Admin: 10/22/24 21:13 Dose: 600 mg Propranolol HCl (Propranolol Hcl 10 Mg Tablet) 10 mg PO BID [facility]; Protocol Last Admin: 10/22/24 21:13 Dose: 10 mg Pyridoxine HCl (Pyridoxine Hcl (Vitamin B6) 50 Mg Tablet) 100 mg PO BID [facility] Last Admin: 10/22/24 21:13 Dose: 100 mg Risperidone (Risperidone 3 Mg Tablet) 3 mg PO BEDTIME [facility] Last Admin: 10/22/24 21:14 Dose: 3 mg Risperidone (Risperidone 0.5 Mg Tablet) 0.5 mg PO DAILY [facility] Last Admin: 10/22/24 08:41 Dose: 0.5 mg Trazodone HCl (Trazodone Hcl 50 Mg Tablet) 50 mg PO BEDTIME MRX1 PRN PRN Reason: Insomnia Allergies Allergies Allergy/AdvReac Type Severity Reaction Status Date / Time phenytoin Allergy Intermediate unknown Verified 10/17/24 15:26 Assessment & Plan Assessment & Plan (1) Epilepsy: Qualifiers: Epilepsy type: other generalized Intractability: not intractable Status epilepticus: without status epilepticus Qualified Code(s): G40.409 - Other generalized epilepsy and epileptic syndromes, not intractable, without status epilepticus Status: Acute Code(s): G40.909 - Epilepsy, unspecified, not intractable, without status epilepticus Assessment and Plan: 24-year-old female with a past medical history of bipolar disorder, PTSD, seizure disorder, hyperlipidemia presented to the ED with suicidal ideation, she is admitted to inpatient psychiatric level of care for further treatment. Bipolar 2 disorder/panic disorder/PTSD Treatment per psychiatric team Seizure disorder Continue on levetiracetam b.i.d. Hyperlipidemia Continue atorvastatin Thank you for allowing me to participate in the care of this patient. Signing off at this time. Please reconsult of any acute concerns or issues arise (2) Post traumatic stress disorder (PTSD): Status: Acute Code(s): F43.10 - Post-traumatic stress disorder, unspecified (3) Panic disorder with agoraphobia: Status: Acute Code(s): F40.01 - Agoraphobia with panic disorder (4) Verbal auditory hallucinations: Status: Acute Code(s): R44.0 - Auditory hallucinations Plan 10/18: increase HS risperidone to 3 mg to target AH/paranoia. start clonidine 0.1 TID to target anxiety (and thereby decreasing AH/paranoia). otherwise continue outpt medications regimen. T/C starting SSRI for long-term Tx of PTSD. 10/19: calm, cooperative. c/o anxiety, asking for ativan. outpt 1 mg TID PRN ordered. also saying AH, anxiety, paranoia better than prior. c/o daytime sedation. declines to move VPA to HS, saying she would like to discuss with her neurologist. agreeable to decrease morning risperidone from 1 mg to 0.5 mg in attempt to reduce daytime drowsiness. BP/P WNL. 10/20: remains drowsy in the morning. anxiety much improved, however, and denies SI. BPs good. continue current mgmt. T/C discharge early next week if improvement holds. 10/21/24: Report slept well -5 hours. Up at night report chest pain but attributed it to anxiety. Given Ativan PRN with good effect. Patient is seen in bed. No appetite issues. Compliant with meds except Nystatin power which she states she does not need it anymore which was change to PRN. Denies safety concerns. Pleasant and cooperative. No issues. 10/22/24: Patient slept for 8 hours, compliant with medications, but refused 1500 clonidine scheduled yesterday. Stay most of the time in bed, reports he she has been sleeping which is the normal pattern when she was home. Denies safety concerns. No behavior issues. Pleasant and calm upon approach. She asked when she will be discharged. Refer patient to talk to her attending tomorrow regarding discharge planning Reason for continued inpatient stay Substantial Risk for: med/psych decompensation Time Spent With Patient Time: Total time managing care of this patient today ____ minutes.
[2024-10-23 07:05] VITALS: BP 123/77; PULSE 85; RESP 18; TEMP 36.9; O2SAT 96
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
[2024-10-23 15:54] VITALS: BP 118/60
[2024-10-23 21:27] VITALS: BP 115/60; PULSE 94; RESP 18; TEMP 36.5; O2SAT 98
[2024-10-24 08:15] VITALS: BP 112/62; PULSE 100; RESP 14; TEMP 36.8; O2SAT 96
== END 2024-10-24 11:04 | disposition home or self-care (01) | DRG 753 ==
LOC: HO.ED 21:56 → HO.PADLT16 10-18 12:45
PROVIDERS: Physician Assistant Medical; Admitting Provider Psychiatry & Neurology Psychiatry; Emergency Provider Emergency Medicine Emergency Medical Services; Visit Provider Psychiatry & Neurology Psychiatry
DX: F31.81 Bipolar II disorder (principal); R45.851 Suicidal ideations; G40.909 Epilepsy, unspecified, not intractable, without status epilepticus; F43.10 Post-traumatic stress disorder, unspecified; E78.5 Hyperlipidemia, unspecified; F40.01 Agoraphobia with panic disorder; F17.210 Nicotine dependence, cigarettes, uncomplicated; Z71.6 Tobacco abuse counseling; Z79.899 Other long term (current) drug therapy
CPT/HCPCS: 36415; 80053; 80061; 80143; 80179; 80307; 81001; 81025; 82607; 82746; 83036; 84439; 84443; 85025; 90656; 93005; 99285

== ENCOUNTER → 2024-10-18 07:48 | Outpatient (BNV) | payer OTHER, SELFPAY | PROVIDERS: Emergency Provider Emergency Medicine Emergency Medical Services; Visit Provider Internal Medicine Cardiovascular Disease | DX: R94.31 Abnormal electrocardiogram [ECG] [EKG] (principal); Z13.6 Encounter for screening for cardiovascular disorders | CPT/HCPCS: 93010 ==

== ENCOUNTER → 2024-10-18 12:39 | Outpatient (BNV) | payer OTHER, SELFPAY | PROVIDERS: Admitting Provider Psychiatry & Neurology Psychiatry; Emergency Provider Emergency Medicine Emergency Medical Services; Visit Provider Nurse Practitioner Family | DX: G40.409 Other generalized epilepsy and epileptic syndromes, not intractable, without status epilepticus (principal) | CPT/HCPCS: 99221 ==

== ENCOUNTER → 2024-10-18 12:39 | Outpatient (BNV) | payer OTHER, SELFPAY | PROVIDERS: Admitting Provider Psychiatry & Neurology Psychiatry; Emergency Provider Emergency Medicine Emergency Medical Services; Visit Provider Psychiatry & Neurology Psychiatry | DX: F40.01 Agoraphobia with panic disorder (principal); F43.11 Post-traumatic stress disorder, acute; R44.0 Auditory hallucinations; R45.851 Suicidal ideations; F39 Unspecified mood [affective] disorder | CPT/HCPCS: 99233 ==

== ENCOUNTER 2025-01-29 13:15 | Outpatient (AMB) | payer OTHER, SELFPAY ==
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
[2025-01-29 13:23] VITALS: BP 104/72; PULSE 96; O2SAT 98; BMI 51.1
--- OUTSIDE RECORDS SUMMARY | 2025-01-29 16:38 | XMS_ITS | Clinical Summary ---
Author Organization [facility] Address [address] [place] [address] Phone Care Team Providers Care Investigator Operator Name Role Phone Physician, No Pcp Primary [...] Medical History Medical History Date Comments Epilepsy ([facility] V24, [facility] V28) Social History Tobacco Use Types Packs/Day [...] on file Sexual Orientation Not on file Last Filed Vital Signs Vital Sign Reading [...] Screening 01/11/2022 Depression Screening 02/09/2024 COVID-19 Vaccine (4 - 2024-2 6 season) 2024 04/24/2021, 09/23/2020, 08/26/2020 DTaP,Tdap,and Td Vaccines (2 - Td or Tdap) 03/15/2026 03/15/2016 RSV Immunization Adult Patients (1 - 1-dose 75+ series) 2073 Influenza Vaccine Completed 10/18/2024 HIB Vaccines Aged Out No longer eligi [...] patient's age to complete this topic Insurance [facility] MEDICAID ADVANTAGE [address] [place] [address] Care Teams Investigator Operator Relationship Specialty Start Date End Date Physician, No Pcp PCP - General 07/07/24
== END 2025-01-29 14:40 | disposition home or self-care (01) ==
LOC: HO.HSMS 13:15
PROVIDERS: PCP Nurse Practitioner Family; Visit Provider Nurse Practitioner Family
DX: G40.409 Other generalized epilepsy and epileptic syndromes, not intractable, without status epilepticus (principal); R25.1 Tremor, unspecified; R47.9 Unspecified speech disturbances; F39 Unspecified mood [affective] disorder; G44.85 Primary stabbing headache; R06.83 Snoring; G47.19 Other hypersomnia; G47.9 Sleep disorder, unspecified; E66.01 Morbid (severe) obesity due to excess calories
CPT/HCPCS: 99214

== ENCOUNTER → 2025-01-29 13:15 | Outpatient (BNVA) | payer OTHER, SELFPAY | PROVIDERS: PCP Nurse Practitioner Family; Visit Provider Nurse Practitioner Family | DX: G40.409 Other generalized epilepsy and epileptic syndromes, not intractable, without status epilepticus (principal); F39 Unspecified mood [affective] disorder; G44.85 Primary stabbing headache; G47.19 Other hypersomnia; E66.01 Morbid (severe) obesity due to excess calories; R25.1 Tremor, unspecified; R06.83 Snoring; R47.9 Unspecified speech disturbances; Z68.43 Body mass index [BMI] 50.0-59.9, adult; Z79.899 Other long term (current) drug therapy | CPT/HCPCS: 99212 ==